=== PATIENT | female | born 1960 | race Caucasian/White ===

== ENCOUNTER 2022-04-26 12:43 | Observation (INO) | payer OTHER ==
[2022-04-26] MEDS ORDERED: ASPIRIN 81 MG PO STA (12:50)
[2022-04-26] MEDS ORDERED: NITROGLYCERIN SL TABS 0.4 MG TAB SUBLINGUAL STA (13:03)
[2022-04-26 13:19] LABS: Basophils % (A) 1 %; Eosinophils # (A) 0.2 k/uL (0-0.7); Eosinophils % (A) 3 %; HCT 35.7 % (34.0-46.0); HGB 12.3 gm/dL (11.4-16.0); Lymphocytes # (A) 2.4 k/uL (1.0-4.8); Lymphocytes % (A) 37 %; MCH 33.2 pg (25.0-35.0); MCHC 34.6 g/dL (31.0-37.0); MCV 95.9 fL (80.0-100.0); Mean Platelet Volume 7.2; Monocytes # (A) 0.4 k/uL (0-1.0); Monocytes % (A) 7 %; Neutrophils # (A) 3.1 k/uL (1.3-7.7); Neutrophils % (A) 50 %; Platelet Count 272 k/uL (150-450); RBC 3.72 m/uL (3.80-5.40); RDW 13.1 % (11.5-15.5); WBC 6.3 k/uL (3.8-10.6)
[2022-04-26 13:27] LABS: ALT 26 U/L (4-34); AST 30 U/L (14-36); African American GFR (CKD) >90 (>60 ml/min/1.73 sqM); Albumin 4.7 g/dL (3.5-5.0); Alkaline Phosphatase 88 U/L (38-126); Anion Gap 9 mmol/L; Blood Urea Nitrogen 7 mg/dL (7-17); Calcium 9.3 mg/dL (8.4-10.2); Carbon Dioxide 23 mmol/L (22-30); Chloride 101 mmol/L (98-107); Glucose 88 mg/dL (74-99); Magnesium 1.7 mg/dL (1.6-2.3); Non-African American GFR(CKD) >90 (>60 ml/min/1.73 sqM); Potassium 4.1 mmol/L (3.5-5.1); Sodium 133 mmol/L (137-145); Total Bilirubin 0.3 mg/dL (0.2-1.3); Total Protein 7.1 g/dL (6.3-8.2)
[2022-04-26] MEDS ORDERED: SODIUM CHLORIDE 0.9% 500 ML 500 ML IV STA (13:28)
[2022-04-26] MEDS ORDERED: ACETAMINOPHEN TAB 325 MG TAB PO STA (13:28)
--- NOTE | 2022-04-26 13:30 | ED ---
General Adult HPI - General Chief complaint: Chest Pain Stated complaint: Chest pain/High BP Time Seen by Provider: 04/26/22 12:50 Source: patient, RN notes reviewed, old records reviewed Mode of arrival: wheelchair Limitations: no limitations - History of Present Illness Initial comments: Patient is a 61-year-old female with past medical history remarkable for hypertension who presents emergency Department complaining of chest pain. Patient states at approximately 10:30 or 11 AM today, she began having chest pressure sensation that was approximately 7 out of 10 located over the left side of her chest. She was not doing any exertional activity at the time. Patient states the pain is currently 1 or 2 out of 10 at this time. Patient was hypert ensive when her chest pain was this elevated. She has been having multiple visits over the last 1 to months with similar complaints. She is been seen in multiple emergency departments with negative workups. She is due for a stress test tomorrow. She also increased her lisinopril recently to 20 mg from 10 mg. No other medications at this time. Family history of cardiac disease. Patient smokes tobacco as well. Presents for further evaluation this time. - Related Data Home Medications Medication Instructions Recorded Confirmed Aspirin DAILY 04/02/14 04/02/14 Levothyroxine Sodium [Synthroid] 137 mcg PO DAILY 04/02/14 04/02/14 Venlafaxine HCl [Effexor XR] 04/02/14 04/02/14 lamoTRIgine [LaMICtal] 04/02/14 04/02/14 Allergies Allergy/AdvReac Type Severity Reaction Status Date / Time No Known Allergies Allergy Verified 04/26/22 12:45 Review of Systems ROS Statement: Those systems with pertinent positive or pertinent negative responses have been documented in the HPI. Review of Systems: CONST: Denies fever EYES: Denies blurry vision ENT: Denies nasal congestion C/V: Endorses chest pressure. RESP: Denies shortness of breath GI: Denies abdominal pain : Denies dysuria SKIN: Denies rash. MSK: Denies joint pain. NEURO: Denies headache ROS Other: All systems not noted in ROS Statement are negative. Past Medical History Past Medical History: Hypertension History of Any Multi-Drug Resistant Organisms: None Reported Past Surgical History: Tonsillectomy Past Psychological History: Bipolar Smoking Status: Current some day smoker Past Alcohol Use History: Occasional Past Drug Use History: None Reported General Exam - General Exam Comments Initial Comments: General: Appears in no acute distress. HEAD: Normal with no signs of head trauma. EYES: PERRLA, EOMI, conjunctiva normal, no discharge. ENT: Hearing grossly intact, normal oropharynx. RESPIRATORY: Clear breath sounds bilaterally. No wheezes, rales, or rhonchi. C/V: Regular rate and rhythm. S1 and S2 auscultated, no edema, peripheral pulses 2+ and intact throughout ABD: Abd is soft, nontender, nondistended EXT: Normal range of motion, no obvious deformity SKIN: No rashes or lesions observed on exposed skin. NEURO: Alert and oriented 4. Limitations: no limitations Course Vital Signs 04/26/22 12:46 Temperature 98.4 F Pulse Rate 80 Respiratory 16 Rate Blood Pressure 165/102 O2 Sat by Pulse 98 Oximetry Medical Decision Making - Medical Decision Making Based on the patient's presentation and physical exam, there is concern for acute cardio pulmonary process for current symptoms. We will obtain cardiac labs as well as administer a single nitroglycerin tablet as well as aspirin. She was in agreement this plan. EKG showed no signs of acute ischemia. Chest x-ray shows no acute cardio pulmonary process. Laboratory studies are remarkable for an undetectable troponin. Remainder the labs are unremarkable. Patient states that her symptoms went from a 110 to possible 0 out of 10 after administration of nitroglycerin tablet. She is asymptomatic at this time. I discussed with the patient repeating a troponin here in the department versus admission. She states that typically when she goes home symptoms come back. She'll feel more comfortable staying. This is reasonable as the patient's heart score is moderate at 4. Patient will therefore be admitted. Troponins were trended. Echo will be ordered. Cardiology will be consulted. She was in agreement this plan.Patient remained asymptomatic and vital signs remained within normal limits throughout her stay. I spoke with Dr. Gonzalez who is covering for Dr. Honeycutt this weekend, who accepted the patient and patient was admitted to observation telemetry. - Lab Data Result diagrams: 04/26/22 12:55 04/26/22 12:55 Lab Results 04/26/22 04/26/22 04/26/22 Range/Units 12:55 12:55 12:55 WBC 6.3 (3.8-10.6) k/uL RBC 3.72 L (3.80-5.40) m/uL Hgb 12.3 (11.4-16.0) gm/dL Hct 35.7 (34.0-46.0) % MCV 95.9 (80.0-100.0) fL MCH 33.2 (25.0-35.0) pg MCHC 34.6 (31.0-37.0) g/dL RDW 13.1 (11.5-15.5) % Plt Count 272 (150-450) k/uL MPV 7.2 Neutrophils % 50 % Lymphocytes % 37 % Monocytes % 7 % Eosinophils % 3 % Basophils % 1 % Neutrophils # 3.1 (1.3-7.7) k/uL Lymphocytes # 2.4 (1.0-4.8) k/uL Monocytes # 0.4 (0-1.0) k/uL Eosinophils # 0.2 (0-0.7) k/uL Basophils # 0.0 (0-0.2) k/uL PT 10.3 (9.0-12.0) sec INR 0.9 (<1.2) APTT 26.1 (22.0-30.0) sec Sodium 133 L (137-145) mmol/L Potassium 4.1 (3.5-5.1) mmol/L Chloride 101 (98-107) mmol/L Carbon Dioxide 23 (22-30) mmol/L Anion Gap 9 mmol/L BUN 7 (7-17) mg/dL Creatinine 0.61 (0.52-1.04) mg/dL Est GFR (CKD-EPI)AfAm >90 (>60 ml/min/1.73 sqM) Est GFR (CKD-EPI)NonAf >90 (>60 ml/min/1.73 sqM) Glucose 88 (74-99) mg/dL Calcium 9.3 (8.4-10.2) mg/dL Magnesium 1.7 (1.6-2.3) mg/dL Total Bilirubin 0.3 (0.2-1.3) mg/dL AST 30 (14-36) U/L ALT 26 (4-34) U/L Alkaline Phosphatase 88 (38-126) U/L Troponin I (0.000-0.034) ng/mL Total Protein 7.1 (6.3-8.2) g/dL Albumin 4.7 (3.5-5.0) g/dL 04/26/22 Range/Units 12:55 WBC (3.8-10.6) k/uL RBC (3.80-5.40) m/uL Hgb (11.4-16.0) gm/dL Hct (34.0-46.0) % MCV (80.0-100.0) fL MCH (25.0-35.0) pg MCHC (31.0-37.0) g/dL RDW (11.5-15.5) % Plt Count (150-450) k/uL MPV Neutrophils % % Lymphocytes % % Monocytes % % Eosinophils % % Basophils % % Neutrophils # (1.3-7.7) k/uL Lymphocytes # (1.0-4.8) k/uL Monocytes # (0-1.0) k/uL Eosinophils # (0-0.7) k/uL Basophils # (0-0.2) k/uL PT (9.0-12.0) sec INR (<1.2) APTT (22.0-30.0) sec Sodium (137-145) mmol/L Potassium (3.5-5.1) mmol/L Chloride (98-107) mmol/L Carbon Dioxide (22-30) mmol/L Anion Gap mmol/L BUN (7-17) mg/dL Creatinine (0.52-1.04) mg/dL Est GFR (CKD-EPI)AfAm (>60 ml/min/1.73 sqM) Est GFR (CKD-EPI)NonAf (>60 ml/min/1.73 sqM) Glucose (74-99) mg/dL Calcium (8.4-10.2) mg/dL Magnesium (1.6-2.3) mg/dL Total Bilirubin (0.2-1.3) mg/dL AST (14-36) U/L ALT (4-34) U/L Alkaline Phosphatase (38-126) U/L Troponin I <0.012 (0.000-0.034) ng/mL Total Protein (6.3-8.2) g/dL Albumin (3.5-5.0) g/dL - EKG Data -: EKG Interpreted by Or EKG Comments: 12-lead Electrocardiogram Interpretation Note EKG was reviewed and interpreted by myself. 12-lead ECG performed at 1253 is interpreted by me as revealing normal sinus rhythm at a rate of 72 beats per minute. Mcintyre is normal. NE interval is 196 seconds, QRS duration is 91 ms, QTc is 391 ms.. There were no ST or T wave abnormalities to suggest myocardial ischemia or injury. R wave progression across the precordium was satisfactory. By my interpretation this EKG is non-diagnostic for acute ischemia. Disposition Clinical Impression: Chest pain Disposition: ADMITTED IP TO THIS HOSP Condition: Stable Referrals: Adan Honeycutt MD [Primary Care Provider] - 1-2 days Time of Disposition: 14:00
--- NOTE | 2022-04-26 13:30 | XR ---
EXAMINATION TYPE: XR chest 2V DATE OF EXAM: 04/26/2022 COMPARISON: NONE HISTORY: Chest pain TECHNIQUE: Frontal and lateral views of the chest are obtained. FINDINGS: There is no focal air space opacity, pleural effusion, or pneumothorax seen. The cardiac silhouette size is within normal limits. The osseous structures are intact. IMPRESSION: No acute cardiopulmonary process.
[2022-04-26 13:37] LABS: INR 0.9 (<1.2); Partial Thromboplastin Time 26.1 sec (22.0-30.0); Prothrombin Time 10.3 sec (9.0-12.0)
[2022-04-26] MEDS ORDERED: NALOXONE 0.4 MG/ML 1 ML VIAL IV PRN (14:09)
[2022-04-26] MEDS: HEPARIN SODIUM,PORCINE/PF 5,000 UNIT/0.5 ML SYRINGE SQ SCH ×2 (16:09→21:06)
[2022-04-26] MEDS: NON FORMULARY DRUG (Cariprazine Hcl [Vraylar] 1.5 MG Capsule) PO SCH (16:18)
--- NOTE | 2022-04-26 20:22 | P.HPIM ---
History of Present Illness H&P Date: 04/26/22 Chief Complaint: Chest pain Patient is a 61-year-old female with a known history of hypertension, hyperlipidemia, hypothyroidism, bipolar disorder and currently everyday smoker cut down to 2 cigarettes /day presents to ER with complaints of chest pain. Patient states that around 7:30 AM today she woke up from sleep with chest pain. Mainly left upper chest and discomfort in the neck and left arm. Patient was also felt like heart beating fast. 7 out of 10 in severity. No headache or dizziness or lightheadedness. No leg swelling. No cough or sputum production. No shortness of breath. Denies any relieving factors. Patient was found to be hypotensive with systolic blood pressure in 170s when checked at home. Patient had 4 similar episodes during the last 3 weeks. Patient was scheduled for stress test sometime next week. Patient does have multiple visits over the last 1 month with similar complaints. Work-up has been negative. Denies any history of diabetes. Denied family history of coronary artery disease. Chest x-ray impression showed no acute cardiopulmonary process EKG showed sinus rhythm with heart rate 72 Lab data showed WBC 6.3 hemoglobin 12.3 and platelets 272 Sodium 133 potassium 4.1 chloride 101 bicarb is 23 BUN 7 creatinine 0.61 and m agnesium 1.7 and troponin x2 negative albumin 4.7 liver enzymes are not elevated Review of Systems Constitutional: Patient denies any fever or chills . Generalized weakness. Abdomen: Patient denied any nausea or vomiting or abd. pain Cardiovascular: Patient does complain of left upper chest pain. No associated shortness breath. No leg swelling. Palpitations.. Respiratory: patient denied any cough is from production. No shortness of breath Neurologic: Patient denied any numbness or tingling headache. Musculoskeletal: Patient denies any complaints of joint swelling or deformity. Skin: Negative Psychiatric: Negative Endocrine: No heat or cold intolerance. No recent weight gain. Genitourinary: No dysuria or hematuria. All other 14 point ROS negative except the above Past Medical History Past Medical History: Hyperlipidemia, Hypertension, Thyroid Disorder History of Any Multi-Drug Resistant Organisms: None Reported Past Surgical History: Tonsillectomy Past Psychological History: Bipolar Smoking Status: Current some day smoker Past Alcohol Use History: Occasional Past Drug Use History: None Reported Medications and Allergies Home Medications Medication Instructions Recorded Confirmed Type Levothyroxine Sodium [Synthroid] 100 mcg PO DAILY 04/02/14 04/26/22 History Venlafaxine HCl [Effexor XR] 150 mg PO DAILY 04/02/14 04/26/22 History lamoTRIgine [LaMICtal] 200 mg PO HS 04/02/14 04/26/22 History Cariprazine HCl [Vraylar] 1.5 mg PO DAILY 04/26/22 04/26/22 History Ergocalciferol [Vitamin D2 (1250 1,250 mcg PO WEEKLY 04/26/22 04/26/22 History Mcg = 15793 Iu)] Melatonin 3 mg PO HS 04/26/22 04/26/22 History QUEtiapine [SEROquel] 200 mg PO HS 04/26/22 04/26/22 History Simvastatin [Zocor] 20 mg PO HS 04/26/22 04/26/22 History lisinopriL [Zestril] 20 mg PO DAILY 04/26/22 04/26/22 History Allergies Allergy/AdvReac Type Severity Reaction Status Date / Time No Known Allergies Allergy Verified 04/26/22 12:45 Physical Exam Vitals: Vital Signs Temp Pulse Pulse Resp BP BP Pulse Ox 04/26/22 18:45 98.5 F 82 17 161/96 93 L 04/26/22 15:15 98.2 F 66 16 156/89 98 04/26/22 14:54 98.1 F 68 18 136/94 99 04/26/22 12:46 98.4 F 80 16 165/102 98 Intake and Output 04/26/22 04/26/22 04/26/22 06:59 14:59 22:59 Other: Weight 72.121 kg PHYSICAL EXAMINATION: Patient is lying in the bed comfortably, no acute distress, awake alert and oriented.. HEENT: Normocephalic. Neck is supple. Pupils reactive. Nostrils clear. Oral cavity is moist. Neck reveals no JVD, carotid bruits, or thyromegaly. CHEST EXAMINATION: Trachea is central. Symmetrical expansion. Lung morales clear to auscultation and percussion. CARDIAC: Normal S1, S2 with no gallops. No murmurs ABDOMEN: Soft. Bowel sounds present. Nontender. No organomegaly. No abdominal bruits. Extremities: reveal no edema. No clubbing or cyanosis Neurologically awake, alert, oriented x3 with well-coordinated movements. No focal deficits noted Skin: No rash or skin lesions. Psychiatric: Coperative. Nonsuicidal, anxious. Musculoskeletal: No joint swelling or deformity. Normal range of motion. Results CBC & Chem 7: 04/26/22 12:55 06 12:55 Labs: Abnormal Lab Results - Last 24 Hours (Table) 04/26/22 04/26/22 Range/Units 12:55 12:55 RBC 3.72 L (3.80-5.40) m/uL Sodium 133 L (137-145) mmol/L Thrombosis Risk Factor Assmnt - DVT/VTE Prophylaxis DVT/VTE Prophylaxis: Pharmacologic Prophylaxis ordered Assessment and Plan Assessment: Atypical chest pain. Rule out ACS and arrhythmia.. Uncontrolled hypertension Hypothyroidism Hypomagnesemia. Status post replacement. Anxiety/depression bipolar disorder DVT prophylaxis with heparin subcu Plan: Patient will be continued on telemetry monitoring. Serial EKG and troponin x3. 2D echocardiogram was ordered and cardiology was consulted. Follow-up TSH and D-dimer. Continue with home blood pressure medications including lisinopril and follow blood pressure closely. Cardiology was consulted for evaluation. Continued home medications. Time with Patient: Greater than 30
[2022-04-26] MEDS ORDERED: ATORVASTATIN 10 MG TAB PO SCH (21:00)
[2022-04-26] MEDS ORDERED: lamoTRIgine 100 MG TAB PO SCH (21:00)
[2022-04-26] MEDS ORDERED: QUEtiapine 200 MG TAB PO SCH (21:00)
[2022-04-26] MEDS ORDERED: MELATONIN 3 MG TABLET PO SCH (21:00)
[2022-04-26] MEDS: MAGNESIUM SULFATE-D5W PMX 1 GM in DEXTROSE/WATER 1 100ML.BAG IVPB SCH ×2 (21:05→22:25)
[2022-04-26] MEDS ORDERED: ACETAMINOPHEN TAB 325 MG TAB PO PRN (21:08)
[2022-04-27] MEDS ORDERED: LEVOTHYROXINE 100 MCG TAB PO SCH (06:30)
[2022-04-27 08:12] VITALS: BP 114/73; PULSE 73; RESP 12; TEMP 98.4
[2022-04-27 08:56] LABS: Basophils # (A) 0.05 X 10*3/uL (0.00-0.10); Basophils % (A) 0.9 %; Eosinophils # (A) 0.22 X 10*3/uL (0.04-0.35); Eosinophils % (A) 4.1 %; HCT 38.2 % (37.2-46.3); HGB 12.3 g/dL (12.0-15.0); Immature Grans, Automated 0.6 %; Lymphocytes # (A) 2.52 X 10*3/uL (0.90-5.00); Lymphocytes % (A) 46.7 %; MCH 30.8 pg (27.0-32.0); MCHC 32.2 g/dL (32.0-37.0); MCV 95.7 fL (80.0-97.0); Monocytes % (A) 9.3 %; NRBC Per 100 WBC 0 /100 WBCS (0.0-0.0); Neutrophils # (A) 2.08 X 10*3/uL (1.80-7.70); Neutrophils % (A) 38.4 %; Platelet Count 273 X 10*3/uL (140-440); RBC 3.99 X 10*6/uL (4.10-5.20); RDW 12.9 % (11.5-14.5)
[2022-04-27] MEDS ORDERED: lisinopriL 20 MG TAB PO SCH (09:00)
[2022-04-27] MEDS ORDERED: VENLAFAXINE HCL ER 150 MG CAP PO SCH (09:00)
[2022-04-27] MEDS ORDERED: METOPROLOL TARTRATE 12.5 MG TAB PO SCH (09:00)
[2022-04-27] MEDS ORDERED: ASPIRIN 81 MG PO SCH (09:00)
[2022-04-27] MEDS: NON FORMULARY DRUG (Cariprazine Hcl [Vraylar] 1.5 MG Capsule) PO SCH (09:07)
[2022-04-27 09:18] LABS: African American GFR (CKD) 107.6 (60.0-200.0); Anion Gap 7.7 mmol/L (10.00-18.00); BUN/Creat Ratio 10.86 Ratio (12.00-20.00); Blood Urea Nitrogen 7.6 mg/dL (9.0-27.0); Calcium 9.7 mg/dL (8.7-10.3); Carbon Dioxide 24.3 mmol/L (20.0-27.5); Non-African American GFR(CKD) 92.9 (60.0-200.0); Potassium 4.8 mmol/L (3.5-5.5)
--- NOTE | 2022-04-27 10:03 | CA ---
Transthoracic Echo Report Name: Inez Nova Age: 61 Gender: F : 1960 Exam Date: 04/27/2022 07:49 Exam Location: [facility] Ht (in): 65 Wt (lb): 159 Ordering Physician: David Turner MD Attending/Referring Phys: Hand Pleater Rekha Nielsen RDCS Procedure CPT: Indications: Chest Pain Cardiac Hx: Hyperlipidemia. Hypertension. smoker Technical Quality: Good Contrast 1: Total Dose (mL): Contrast 2: Total Dose (mL): MEASUREMENTS (Male / Female) Normal Values 2D ECHO LV Diastolic Diameter PLAX 3.6 cm 4.2 - 5.9 / 3.9 - 5.3 cm LV Systolic Diameter PLAX 2.4 cm IVS Diastolic Thickness 1.1 cm 0.6 - 1.0 / 0.6 - 0.9 cm LVPW Diastolic Thickness 0.9 cm 0.6 - 1.0 / 0.6 - 0.9 cm LV Relative Wall Thickness 0.6 RV Internal Dim ED PLAX 2.9 cm LA Systolic Diameter LX 3.1 cm 3.0 - 4.0 / 2.7 - 3.8 cm LA Volume 43.2 cm??? 18 - 58 / 22 - 52 cm??? M-MODE Aortic Root Diameter MM 3.3 cm MV E Point Septal Separation 0.3 cm AV Cusp Separation MM 2.2 cm DOPPLER AV Peak Velocity 130.3 cm/s AV Peak Gradient 6.8 mmHg MV Area PHT 2.2 cm??? Mitral E Point Velocity 73.4 cm/s Mitral A Point Velocity 82.6 cm/s Mitral E to A Ratio 0.9 MV Deceleration Time 344.0 ms MV E' Velocity 6.9 cm/s Mitral E to MV E' Ratio 10.6 TR Peak Velocity 232.4 cm/s TR Peak Gradient 21.6 mmHg Right Ventricular Systolic Press 26.6 mmHg FINDINGS Left Ventricle Left ventricular ejection fraction is estimated at 60-65 %. Left ventricular cavity size normal. Left ventricular wall thickness normal. Right Ventricle Normal right ventricular size and function. Right ventricular systolic pressure within normal limits. Right Atrium Normal right atrial size. Left Atrium Normal left atrial size. No evidence for an atrial septal defect. Mitral Valve Structurally normal mitral valve. No mitral stenosis, regurgitation or prolapse. Aortic Valve Trileaflet aortic valve. Trace to mild aortic regurgitation. Tricuspid Valve Mild tricuspid regurgitation. Pulmonic Valve Trace pulmonic regurgitation. Pericardium Normal pericardium. No pericardial effusion. Aorta Normal size aortic root and proximal ascending aorta. Ascending AO dilated 39 mm CONCLUSIONS Normal LV size and systolic function. No significant abnormality on the Doppler exam. Prominent ascending aorta Previewed by: Dr. Kirt Alcantar MD (Electronically Signed) Final Date: 27 April 2022 10:02
--- NOTE | 2022-04-27 10:21 | P.CRDCN ---
History of Present Illness History of present illness: HISTORY OF PRESENTING ILLNESS This is a pleasant 61-year-old female past medical history significant for hypertension, dyslipidemia, hypothyroidism, anxiety, depression. She does not follow with a defense analyst, she states did see Dr. Alcantar in 2015. We have been asked to see in consultation for chest pain. Patient is seen and examined at bedside, patient presents to the emergency department with complaints of uncontrolled blood pressure at home and chest pressure. She states for the past week she's noticed her blood pressure to be elevated. She states that she did present to the emergency department and wanted [place] for her elevated blood pressure. Most recently her lisinopril was increased to 20 mg a day. She states for the past 23 days she's noticed her blood pressure to be SBP 170s, with no improvement. She endorses compliance with her medication. She states she also notices a high blood pressure he had left-sided chest pain. Describes as a pressure. It is nonradiating, nonexertional denies any associated palpitations, shortness of breath, lightheadedness, syncope or diaphoresis. Her chest discomfort has resolved. No specific alleviating or aggravating factors. She states that Dr. Honeycutt recently ordered an outpatient stress test that was scheduled today at 845am. She currently smokes 2 cigarettes per day. She denies any history of CAD, [place], diabetes, stroke. On admission patient's blood pressure was 160s/100s DIAGNOSTICS EKG reveals sinus rhythm, heart rate 72, nonspecific ST-T wave abnormalities noted. Echocardiogram revealed EF of 6065 percent, no significant wall motion abnormalities or valvular abnormalities Telemetry tracings indicate sinus mechanism Chest xray no acute cardio pulmonary process Laboratory reviewed, troponin negative 3, d-dimer negative, cbc unremarkable,sodium 141, potassium 4.8, BUN 7.6, serum creatinine 0.7 Current home medications include lisinopril 20 mg daily, simvastatin 20 mg daily REVIEW OF SYSTEMS At the time of my exam: CONSTITUTIONAL: Denies fever or chills. CARDIOVASCULAR: Denies chest pain, shortness of breath, orthopnea, PND or palpitations. RESPIRATORY: Denies cough. GASTROINTESTINAL: Denies abdominal pain, diarrhea, constipation, nausea or vomiting. MUSCULOSKELETAL: Denies myalgias. NEUROLOGIC: Denies numbness, tingling, headache or weakness. ENDOCRINE: Denies fatigue, weight change, polydipsia or polyurina. GENITOURINARY: Denies burning, hematuria or urgency with micturation. HEMATOLOGIC: Denies history of anemia or bleeding. PHYSICAL EXAMINATION Blood pressure 114/73, heart rate 73, afebrile, saturation 95% room air CONSTITUTIONAL: No apparent distress. HEENT: Head is normocephalic. Pupils are equal, round. Sclerae anicteric. Mucous membranes of the mouth are moist. No JVD. No carotid bruit. CHEST EXAMINATION: Lungs are clear to auscultation. No chest wall tenderness is noted on palpation or with deep breathing. HEART EXAMINATION: Regular rate and rhythm. S1, S2 heard. No murmurs, gallops or rub. ABDOMEN: Soft, nontender. Positive bowel sounds. EXTREMITIES: 2+ peripheral pulses, no lower extremity edema and no calf tenderness. SKIN: warm dry. NEUROLOGIC EXAMINATION: Patient is awake, alert and oriented x3. ASSESSMENT Chest pain, atypical, acute coronary syndrome has ruled out, possibly related to the hypertension Hypertension Dyslipidemia Hypothyroidism History of anxiety/depression PLAN Start metoprolol tartrate 12.5mg BID An acute coronary event has been ruled out with no EKG evidence of ischemia and negative cardiac enzymes. Obtain 2D echocardiogram and doppler study to assess cardiac structure and function. We will complete patient's stress test as scheduled today to assess for stress induced cardiac ischemia. If stress test is negative ok to discharge from cardiology perspective. Patient may follow up outpatient with Dr. Alcantar Thank you kindly for this consultation. Nurse practitioner note has been reviewed by physician. Signing provider agrees with the documented findings, assessment, and plan of care. Past Medical History Past Medical History: Hyperlipidemia, Hypertension, Thyroid Disorder History of Any Multi-Drug Resistant Organisms: None Reported Past Surgical History: Tonsillectomy Past Psychological History: Bipolar Smoking Status: Current some day smoker Past Alcohol Use History: Occasional Past Drug Use History: None Reported Medications and Allergies Home Medications Medication Instructions Recorded Confirmed Type Venlafaxine HCl [Effexor XR] 150 mg PO DAILY 04/02/14 04/27/22 History Cariprazine HCl [Vraylar] 1.5 mg PO DAILY 04/26/22 04/27/22 History Ergocalciferol [Vitamin D2 (1250 1,250 mcg PO MO 04/26/22 04/27/22 History Mcg = [id number] Iu)] Melatonin 3 mg PO HS 04/26/22 04/27/22 History QUEtiapine [SEROquel] 200 mg PO HS 04/26/22 04/27/22 History Simvastatin [Zocor] 20 mg PO HS 04/26/22 04/27/22 History Levothyroxine Sodium [Synthroid] 100 mcg PO DAILY 04/27/22 04/27/22 History lamoTRIgine [LaMICtal] 200 mg PO HS 04/27/22 04/27/22 History lisinopriL [Zestril] 20 mg PO DAILY 04/27/22 04/27/22 History Allergies Allergy/AdvReac Type Severity Reaction Status Date / Time lithium AdvReac Nausea Verified 04/27/22 07:52 Physical Exam Vitals: Vital Signs Temp Pulse Pulse Resp BP BP Pulse Ox 04/27/22 02:20 97.8 F 76 17 144/72 95 04/27/22 01:55 82 17 04/26/22 21:06 82 17 04/26/22 18:45 98.5 F 82 17 161/96 93 L 04/26/22 15:15 98.2 F 66 16 156/89 98 04/26/22 14:54 98.1 F 68 18 136/94 99 04/26/22 12:46 98.4 F 80 16 165/102 98 Intake and Output 04/26/22 04/27/22 04/27/22 22:59 06:59 14:59 Other: Voiding Method Toilet Toilet # Voids 1 2 Results 04/27/22 06:06 04/27/22 06:06 Cardiac Enzymes 04/26/22 04/26/22 04/26/22 Range/Units 12:55 12:55 15:55 AST 30 (14-36) U/L Troponin I <0.012 <0.012 (0.000-0.034) ng/mL 04/26/22 Range/Units 19:45 AST (14-36) U/L Troponin I <0.012 (0.000-0.034) ng/mL Coagulation 04/26/22 Range/Units 12:55 PT 10.3 (9.0-12.0) sec APTT 26.1 (22.0-30.0) sec CBC 04/26/22 Range/Units 12:55 WBC 6.3 (3.8-10.6) k/uL RBC 3.72 L (3.80-5.40) m/uL Hgb 12.3 (11.4-16.0) gm/dL Hct 35.7 (34.0-46.0) % Plt Count 272 (150-450) k/uL Comprehensive Metabolic Panel 04/26/22 Range/Units 12:55 Sodium 133 L (137-145) mmol/L Potassium 4.1 (3.5-5.1) mmol/L Chloride 101 (98-107) mmol/L Carbon Dioxide 23 (22-30) mmol/L BUN 7 (7-17) mg/dL Creatinine 0.61 (0.52-1.04) mg/dL Glucose 88 (74-99) mg/dL Calcium 9.3 (8.4-10.2) mg/dL AST 30 (14-36) U/L ALT 26 (4-34) U/L Alkaline Phosphatase 88 (38-126) U/L Total Protein 7.1 (6.3-8.2) g/dL Albumin 4.7 (3.5-5.0) g/dL Current Medications Generic Name Dose Route Start Last Admin Trade Name Freq PRN Reason Stop Dose Admin Acetaminophen 650 mg 04/26/22 21:08 04/26/22 21:20 Acetaminophen Tab 325 Mg Tab PO 650 mg Q6HR PRN Administration Fever and/ or Pain Atorvastatin Calcium 10 mg 04/26/22 21:00 04/26/22 21:05 Atorvastatin 10 Mg Tab PO 10 mg HS CURT Administration Ergocalciferol 1,250 mcg 05/03/22 09:00 Ergocalciferol 1,250 Mcg (50,000 Iu) Capsule PO WEEKLY CURT Heparin Sodium (Porcine) 5,000 unit 04/26/22 16:00 04/26/22 21:06 Heparin Sodium,Porcine/Pf 5,000 Unit/0.5 Ml Syringe SQ 5,000 unit Q8HR CURT Administration Lamotrigine 200 mg 04/26/22 21:00 04/26/22 21:05 Lamotrigine 100 Mg Tab PO 200 mg HS CURT Administration Levothyroxine Sodium 100 mcg 04/27/22 06:30 04/27/22 05:11 Levothyroxine 100 Mcg Tab PO 100 mcg DAILY@0630 CURT Administration Lisinopril 20 mg 04/27/22 09:00 Lisinopril 20 Mg Tab PO DAILY CURT Melatonin 3 mg 04/26/22 21:00 04/26/22 21:06 Melatonin 3 Mg Tablet PO 3 mg HS CURT Administration Naloxone HCl 0.2 mg 04/26/22 14:09 Naloxone 0.4 Mg/Ml 1 Ml Vial IV Q2M PRN Opioid Reversal Non-Formulary Medication 1.5 mg 04/26/22 16:00 04/26/22 16:18 Cariprazine Hcl [Vraylar] PO Not Given DAILY CURT Quetiapine Fumarate 200 mg 04/26/22 21:00 04/26/22 21:06 Quetiapine 200 Mg Tab PO 200 mg HS CURT Administration Venlafaxine HCl 150 mg 04/27/22 09:00 Venlafaxine Hcl Er 150 Mg Cap PO DAILY CURT Intake and Output 04/26/22 04/27/22 04/27/22 22:59 06:59 14:59 Other: Voiding Method Toilet Toilet # Voids 1 2 04/26/22 12:55 04/26/22 12:55
[2022-04-27] MEDS: HEPARIN SODIUM,PORCINE/PF 5,000 UNIT/0.5 ML SYRINGE SQ SCH (10:37)
--- NOTE | 2022-04-27 10:40 | CA ---
Exercise Stress Test Report Name: Inez Nova Exam Date: 04/27/2022 09:24 Exam Location: [facility] Stress Ht (in): 65 Wt (lb): 159 BSA: 1.79 Ordering Phys: Nicki Perry Referring Phys: SELENE,, Technologist: EFE,, Age: 61 Gender: F : 1960 Procedure CPT: Indications: Chest Pain ICD-10 Codes: Patient History: CHEST PAIN , NAHID, PALPPITATIONS, NUMBNESS FACE/NECK, HIGH BP, HIGH CHOLESTEROL, FAMILY HISTORY, SMOKER Medications: Meds past 24 hrs: Pretest Chest Pain: STRESS TEST Garett Protocol Exercise Duration (min:sec): 06:[address] Depressions (mm): Angina Score: Florence Score: Resting HR (bpm): 92 Peak HR (bpm): 143 Resting BP (mmHg): / Peak BP (mmHg): 180 / 91 MPHR: 158 Target HR: 134 % MPHR: 91 METS: 7.1 Total Dose: Peak Dose: Atropine: Double Product: 70912 BP Response: Stress Termination: TARGET HR REACHED/MAX EXERTION Stress Symptoms: NO SYMPTOMS Stress Summary: Patient walked on standard Garett protocol for 6 minutes and achieved a maximal heart rate of 143 bpm which is available 85% of predicted maximal. She did not have any angina. There was no significant arrhythmia. There were no ST segment changes to indicate ischemia. This is a negative stress test with fair exercise capacity ECG ANALYSIS Resting ECG: Stress ECG: CONCLUSIONS Patient walked on standard Garett protocol for 6 minutes and achieved a maximal heart rate of 143 bpm which is available 85% of predicted maximal. She did not have any angina. There was no significant arrhythmia. There were no ST segment changes to indicate ischemia. This is a negative stress test with fair exercise capacity Dr. Kirt Alcantar MD (Electronically Signed) Final Date: 27 April 2022 10:39
--- NOTE | 2022-04-29 10:51 | P.DS ---
Providers Date of admission: 04/26/22 14:09 Expected date of discharge: 04/27/22 Attending physician: Melody Gonzalez Consults: 04/26/22 14:09 Consult Physician Routine Consulting Provider: [facility] Consult Reason/Comments: chest pain Do you want consulting provider notified?: Yes, Notify in am Primary care physician: Adan Honeycutt MD Hospital Course: Final Diagnoses: Atypical chest pain. Evaluated by cardiology,ACS ruled out., possibly r/t HTN Uncontrolled hypertension, controlled Hypothyroidism, TSH 0.106, free T4 1.340, dose decreased, recheck level in 2-3 weeks Hypomagnesemia Anxiety/depression bipolar disorder Hospital course: This a 61-year-old female admitted with uncontrolled blood pressure, chest pain 1 week, ongoing nicotine dependence and multiple other medical issues. Troponins negative. Evaluated by cardiology, echo reported normal LV function, EF 60-65% With no significant valvular abnormality, prominent ascending aorta. Antihypertensives adjusted, beta laurie added to med regimen. Significant clinical improvement. Blood pressure controlled. Denies chest pain, palpitations or shortness of breath. Patient will be discha rged home pending stress test, DC recommendations and clearance per cardiology. Smoking cessation reinforced. The impression and plan of care has been dictated as directed. : I performed a history and examination of this patient, discussed the same with the dictator. I agree with the dictator's note ,documented as a scribe. Any additional findings or plans will be noted. Patient Condition at Discharge: Stable Plan - Discharge Summary New Discharge Prescriptions: New lisinopriL [Zestril] 20 mg PO DAILY #30 tab Metoprolol Tartrate [Lopressor] 12.5 mg PO BID 30 Days #60 tab Continue Venlafaxine HCl [Effexor XR] 150 mg PO DAILY lamoTRIgine [LaMICtal] 200 mg PO HS Ergocalciferol [Vitamin D2 (1250 Mcg = 32337 Iu)] 1,250 mcg PO MO Simvastatin [Zocor] 20 mg PO HS QUEtiapine [SEROquel] 200 mg PO HS Cariprazine HCl [Vraylar] 1.5 mg PO DAILY Melatonin 3 mg PO HS Levothyroxine Sodium [Synthroid] 100 mcg PO DAILY Discontinued lisinopriL [Zestril] 20 mg PO DAILY Discharge Medication List Venlafaxine HCl [Effexor XR] 150 mg PO DAILY 04/02/14 [History] Cariprazine HCl [Vraylar] 1.5 mg PO DAILY 04/26/22 [History] Ergocalciferol [Vitamin D2 (1250 Mcg = 59890 Iu)] 1,250 mcg PO MO 04/26/22 [History] Melatonin 3 mg PO HS 04/26/22 [History] QUEtiapine [SEROquel] 200 mg PO HS 04/26/22 [History] Simvastatin [Zocor] 20 mg PO HS 04/26/22 [History] Levothyroxine Sodium [Synthroid] 100 mcg PO DAILY 04/27/22 [History] Metoprolol Tartrate [Lopressor] 12.5 mg PO BID 30 Days #60 tab 04/27/22 [Rx] lamoTRIgine [LaMICtal] 200 mg PO HS 04/27/22 [History] lisinopriL [Zestril] 20 mg PO DAILY #30 tab 04/27/22 [Rx] Follow up Appointment(s)/Referral(s): Kirt Alcantar MD [STAFF PHYSICIAN] - 05/04/22 2:30 pm Adan Honeycutt MD [Primary Care Provider] - 1-2 days Patient Instructions/Handouts: How to Stop Smoking (DC) Activity/Diet/Wound Care/Special Instructions: No smoking
[2022-05-03] MEDS ORDERED: ERGOCALCIFEROL 1,250 MCG (50,000 IU) CAPSULE PO SCH (09:00)
== END 2022-04-27 12:48 ==
LOC: EC 12:43 → 6NMEDSUR 14:09
PROVIDERS: ADMIT Internal Medicine; ATTEND Internal Medicine
DX: R07.89 Other chest pain (principal); I10 Essential (primary) hypertension; E83.42 Hypomagnesemia; F31.9 Bipolar disorder, unspecified; E03.9 Hypothyroidism, unspecified; E78.5 Hyperlipidemia, unspecified; F41.9 Anxiety disorder, unspecified; F17.210 Nicotine dependence, cigarettes, uncomplicated; Z79.82 Long term (current) use of aspirin; Z79.890 Hormone replacement therapy; Z79.899 Other long term (current) drug therapy; Z88.8 Allergy status to other drugs, medicaments and biological substances; Z98.890 Other specified postprocedural states; Z82.49 Family history of ischemic heart disease and other diseases of the circulatory system
CPT/HCPCS: 96365; 96366; 96372; 96361; 99285; 36415; 93005; 93017; 93306; 85379; 84439; 80053; 80048; 84443; 83735; 84484; 85025 ×2; 85610; 85730; 71046; G0378 ×2; J3475; J1644

== ENCOUNTER → 2022-04-28 | Outpatient (CLI) | payer OTHER ==
--- NOTE | 2022-04-30 18:30 | MM ---
Reason for Exam: Screening (asymptomatic). Last mammogram was performed 1 year(s) and 2 month(s) ago. Patient History: Menarche at age 11. First Full-Term at age 23. Postmenopausal. Cyst Aspiration on the Right side. Excisional Biopsy on the Right side. Last menstrual period: 11/15/2008 Risk Values: [place] 5 year model risk: 1.6%. NCI Lifetime model risk: 7.3%. Prior Study Comparison: 11/17/2001 Bilateral Diagnostic Mammogram, [facility]. 09/21/2019 Bilateral MG screening mammo w CAD - 2, [place]. 02/26/2021 Bilateral MG screening mammo w [facility] - 2, [place]. Tissue Density: The breast tissue is heterogeneously dense. This may lower the sensitivity of mammography. Findings: Analyzed By CAD. Asymmetric density medial right CC view at middle depth appears more defined. Asymmetric density superior right MLO view middle depth appears more defined. Further evaluation recommended for both of these findings. A few scattered benign oil cyst calcifications are redemonstrated. Chronic nodularity lateral bilateral breasts. Overall Assessment: Incomplete: need additional imaging evaluation, BI-RAD 0 Management: Special View Mammogram of the right breast. 1. Additional views right breast to include spot 3-D CC and 3-D CC rolled lateral views for the medial density. 2. Additional views right breast to include spot 3-D MLO and 3-D ML views for the superior density. 3. Targeted right breast ultrasound if any persisting abnormality. Electronically signed and approved by: Chiara Gibson M.D. Radiologist
== END | disposition home or self-care (01) ==
LOC: RADMAMWWP 15:21
PROVIDERS: ATTEND Family Medicine
DX: Z12.31 Encounter for screening mammogram for malignant neoplasm of breast (principal); Z78.0 Asymptomatic menopausal state
CPT/HCPCS: 77067

== ENCOUNTER → 2022-05-07 | Outpatient (CLI) | payer OTHER ==
--- NOTE | 2022-05-07 08:01 | MM ---
Reason for Exam: Additional evaluation requested from abnormal screening. Last screening mammogram was performed less than 1 month ago. Patient History: Menarche at age 11. First Full-Term at age 23. Postmenopausal. Cyst Aspiration on the Right side. Excisional Biopsy on the Right side. Risk Values: [place] 5 year model risk: 1.6%. NCI Lifetime model risk: 7.3%. Prior Study Comparison: 11/17/2001 Bilateral Diagnostic Mammogram, [facility]. 09/21/2019 Bilateral MG screening mammo w CAD - 2, [place]. 02/26/2021 Bilateral MG screening mammo w CAD - 2, [place]. 04/28/2022 Bilateral MG screening mammo w CAD, [facility]. Tissue Density: Right: The breast tissue is heterogeneously dense. This may lower the sensitivity of mammography. Findings: Analyzed By CAD. No persistent spiculated or lobular masses evident. Area upper inner right breast disperses on compression. Findings are likely related to summation density. Overall Assessment: Benign, BI-RAD 2 Management: Screening Mammogram of both breasts in 1 year. A clinical breast exam by your physician is recommended on an annual basis and results should be correlated with mammographic findings. This exam should not preclude additional follow-up of suspicious palpable abnormalities. Results were given to the patient verbally at the time of exam. Electronically signed and approved by: Raleigh Alonso D.O. Radiologis
== END | disposition home or self-care (01) ==
LOC: RADMAMWWP 06:59
PROVIDERS: ATTEND Family Medicine
DX: R92.8 Other abnormal and inconclusive findings on diagnostic imaging of breast (principal); Z78.0 Asymptomatic menopausal state
CPT/HCPCS: 77065; G0279; 77061

== ENCOUNTER 2022-08-22 09:06 | Inpatient (IN) | payer OTHER ==
--- NOTE | 2022-08-22 09:41 | ED ---
General Adult HPI - General Chief complaint: Weakness Stated complaint: dizziness, falls, rt ankle injury Time Seen by Provider: 08/22/22 09:10 Source: patient, family, RN notes reviewed, old records reviewed Mode of arrival: wheelchair Limitations: no limitations - History of Present Illness Initial comments: This a 62-year-old female presents emergency department stating that over the last 2 weeks she's been falling quite a bit more. Today she fell and hurt her right ankle. Patient states she gets lightheaded patient can a passout and then falls. Patient states she's never actually passed out. Patient denies any chest pain difficulty breathing shortness of breath. Patient has any fever or chills. Patient denies any abdominal pain patient denies nausea vomiting diarrhea. Patient denies any headache patient denies numbness weakness - Related Data Home Medications Medication Instructions Recorded Confirmed Venlafaxine HCl [Effexor XR] 150 mg PO DAILY 04/02/14 04/27/22 Cariprazine HCl [Vraylar] 1.5 mg PO DAILY 04/26/22 04/27/22 Ergocalciferol [Vitamin D2 (1250 1,250 mcg PO MO 04/26/22 04/27/22 Mcg = 35117 Iu)] Melatonin 3 mg PO HS 04/26/22 04/27/22 QUEtiapine [SEROquel] 200 mg PO HS 04/26/22 04/27/22 Simvastatin [Zocor] 20 mg PO HS 04/26/22 04/27/22 Levothyroxine Sodium [Synthroid] 100 mcg PO DAILY 04/27/22 04/27/22 lamoTRIgine [LaMICtal] 200 mg PO HS 04/27/22 04/27/22 Previous Rx's Medication Instructions Recorded Metoprolol Tartrate [Lopressor] 12.5 mg PO BID 30 Days #60 tab 04/27/22 lisinopriL [Zestril] 20 mg PO DAILY #30 tab 04/27/22 Allergies Allergy/AdvReac Type Severity Reaction Status Date / Time lithium AdvReac Nausea Verified 08/22/22 09:08 Review of Systems ROS Statement: Those systems with pertinent positive or pertinent negative responses have been documented in the HPI. ROS Other: All systems not noted in ROS Statement are negative. Past Medical History Past Medical History: Hyperlipidemia, Hypertension, Thyroid Disorder History of Any Multi-Drug Resistant Organisms: None Reported Past Surgical History: Tonsillectomy Past Psychological History: Bipolar Smoking Status: Former smoker Past Alcohol Use History: Occasional Past Drug Use History: None Reported General Exam - General Exam Comments Initial Comments: GENERAL: Patient is well-developed and well-nourished. Patient is nontoxic and well- hydrated and is in mild distress. ENT: Neck is soft and supple. No significant lymphadenopathy is noted. Oropharynx is clear. Moist mucous membranes. Neck has full range of motion without eliciting any pain. EYES: The sclera were anicteric and conjunctiva were pink and moist. Extraocular movements were intact and pupils were equal round and reactive to light. Eyelids were unremarkable. PULMONARY: Unlabored respirations. Good breath sounds bilaterally. No audible rales rhonchi or wheezing was noted. CARDIOVASCULAR: There is a regular rate and rhythm without any murmurs gallops or rubs. ABDOMEN: Soft and nontender with normal bowel sounds. SKIN: Skin is clear with no lesions or rashes and otherwise unremarkable. NEUROLOGIC: Patient is alert and oriented x3. Cranial nerves II through XII are grossly intact. Motor and sensory are also intact. Normal speech, volume and content. Symmetrical smile. MUSCULOSKELETAL: Patient's right ankle is swollen laterally and tender laterally. Patient also has some fifth metatarsal fracture LYMPHATICS: No significant lymphadenopathy is noted PSYCHIATRIC: Normal psychiatric evaluation. Limitations: no limitations Course Vital Signs 08/22/22 08/22/22 08/22/22 09:08 09:57 10:38 Temperature 97.7 F Pulse Rate 72 66 75 Respiratory 18 16 16 Rate Blood Pressure 95/66 84/64 99/73 O2 Sat by Pulse 92 L 96 100 Oximetry Procedures - Orthopedic Splinting/Casting Injury #1 Side: right Lower Extremity Injury Location: short leg Lower Extremity Immobilizer: posterior splint Medical Decision Making - Medical Decision Making EKG shows sinus rhythm at 63 bpm W[place] interval is 203 QRSs 1:15 QT interval 41 QTC is 408. Patient's EKG shows no ST segment elevation or depression. X-ray of the ankle shows a distal fibula fracture. X-ray of the foot shows a fracture of the right proximal phalanx of the fifth toe. I placed a splint on the patient [facility] patient minute the patient wrote admitting orders I consult to nephrology for the acute renal fa ilure and a consult sore throat for the fractures. - Lab Data Result diagrams: 08/22/22 09:53 08/22/22 09:53 Lab Results 08/22/22 08/22/22 08/22/22 Range/Units 09:53 09:53 09:53 WBC 8.0 (3.8-10.6) k/uL RBC 3.80 (3.80-5.40) m/uL Hgb 11.8 (11.4-16.0) gm/dL Hct 37.3 (34.0-46.0) % MCV 98.3 (80.0-100.0) fL MCH 31.2 (25.0-35.0) pg MCHC 31.7 (31.0-37.0) g/dL RDW 12.9 (11.5-15.5) % Plt Count 255 (150-450) k/uL MPV 9.2 Neutrophils % 76 % Lymphocytes % 15 % Monocytes % 6 % Eosinophils % 2 % Basophils % 1 % Neutrophils # 6.0 (1.3-7.7) k/uL Lymphocytes # 1.2 (1.0-4.8) k/uL Monocytes # 0.4 (0-1.0) k/uL Eosinophils # 0.1 (0-0.7) k/uL Basophils # 0.1 (0-0.2) k/uL Hypochromasia Slight Sodium 139 (137-145) mmol/L Potassium 4.7 (3.5-5.1) mmol/L Chloride 113 H (98-107) mmol/L Carbon Dioxide 10 L (22-30) mmol/L Anion Gap 16 mmol/L BUN 65 H (7-17) mg/dL Creatinine 6.40 H (0.52-1.04) mg/dL Est GFR (CKD-EPI)AfAm 7 (>60 ml/min/1.73 sqM) Est GFR (CKD-EPI)NonAf 6 (>60 ml/min/1.73 sqM) Glucose 122 H (74-99) mg/dL Calcium 9.8 (8.4-10.2) mg/dL Magnesium 3.0 H (1.6-2.3) mg/dL Total Bilirubin 0.5 (0.2-1.3) mg/dL AST 21 (14-36) U/L ALT 17 (4-34) U/L Alkaline Phosphatase 139 H (38-126) U/L Troponin I 0.029 (0.000-0.034) ng/mL Total Protein 7.8 (6.3-8.2) g/dL Albumin 4.8 (3.5-5.0) g/dL Urine Color Urine Appearance (Clear) Urine pH (5.0-8.0) Ur Specific [place] (1.001-1.035) Urine Protein (Negative) Urine Glucose (UA) (Negative) Urine Ketones (Negative) Urine Blood (Negative) Urine Nitrite (Negative) Urine Bilirubin (Negative) Urine Urobilinogen (<2.0) mg/dL Ur Leukocyte Esterase (Negative) Urine RBC (0-5) /hpf Urine WBC (0-5) /hpf Urine Mucus (None) /hpf 08/22/22 Range/Units 10:52 WBC (3.8-10.6) k/uL RBC (3.80-5.40) m/uL Hgb (11.4-16.0) gm/dL Hct (34.0-46.0) % MCV (80.0-100.0) fL MCH (25.0-35.0) pg MCHC (31.0-37.0) g/dL RDW (11.5-15.5) % Plt Count (150-450) k/uL MPV Neutrophils % % Lymphocytes % % Monocytes % % Eosinophils % % Basophils % % Neutrophils # (1.3-7.7) k/uL Lymphocytes # (1.0-4.8) k/uL Monocytes # (0-1.0) k/uL Eosinophils # (0-0.7) k/uL Basophils # (0-0.2) k/uL Hypochromasia Sodium (137-145) mmol/L Potassium (3.5-5.1) mmol/L Chloride (98-107) mmol/L Carbon Dioxide (22-30) mmol/L Anion Gap mmol/L BUN (7-17) mg/dL Creatinine (0.52-1.04) mg/dL Est GFR (CKD-EPI)AfAm (>60 ml/min/1.73 sqM) Est GFR (CKD-EPI)NonAf (>60 ml/min/1.73 sqM) Glucose (74-99) mg/dL Calcium (8.4-10.2) mg/dL Magnesium (1.6-2.3) mg/dL Total Bilirubin (0.2-1.3) mg/dL AST (14-36) U/L ALT (4-34) U/L Alkaline Phosphatase (38-126) U/L Troponin I (0.000-0.034) ng/mL Total Protein (6.3-8.2) g/dL Albumin (3.5-5.0) g/dL Urine Color Light Yellow Urine Appearance Clear (Clear) Urine pH 6.0 (5.0-8.0) Ur Specific [place] 1.009 (1.001-1.035) Urine Protein 1+ H (Negative) Urine Glucose (UA) Negative (Negative) Urine Ketones Negative (Negative) Urine Blood Trace H (Negative) Urine Nitrite Negative (Negative) Urine Bilirubin Negative (Negative) Urine Urobilinogen <2.0 (<2.0) mg/dL Ur Leukocyte Esterase Negative (Negative) Urine RBC 1 (0-5) /hpf Urine WBC 1 (0-5) /hpf Urine Mucus Rare H (None) /hpf Disposition Clinical Impression: Fractured fibula, Fractured toe, Acute renal failure, Multiple falls Disposition: ADMITTED IP TO THIS [facility] Referrals: Adan Honeycutt MD [Primary Care Provider] - 1-2 days Time of Disposition: 11:57
[2022-08-22 10:13] LABS: Basophils # (A) 0.1 k/uL (0-0.2); Basophils % (A) 1 %; Eosinophils # (A) 0.1 k/uL (0-0.7); Eosinophils % (A) 2 %; HCT 37.3 % (34.0-46.0); HGB 11.8 gm/dL (11.4-16.0); Hypochromasia Slight; Lymphocytes # (A) 1.2 k/uL (1.0-4.8); Lymphocytes % (A) 15 %; MCH 31.2 pg (25.0-35.0); MCHC 31.7 g/dL (31.0-37.0); MCV 98.3 fL (80.0-100.0); Mean Platelet Volume 9.2; Monocytes # (A) 0.4 k/uL (0-1.0); Monocytes % (A) 6 %; Neutrophils % (A) 76 %; Platelet Count 255 k/uL (150-450); RDW 12.9 % (11.5-15.5)
[2022-08-22 10:19] LABS: Albumin 4.8 g/dL (3.5-5.0); Calcium 9.8 mg/dL (8.4-10.2); Potassium 4.7 mmol/L (3.5-5.1); Total Bilirubin 0.5 mg/dL (0.2-1.3); Total Protein 7.8 g/dL (6.3-8.2)
[2022-08-22] MEDS ORDERED: SODIUM CHLORIDE 0.9% 1,000 ML IV STA (10:37)
--- NOTE | 2022-08-22 10:47 | XR ---
Right foot. HISTORY: Pain following trauma. COMPARISON: None. TECHNIQUE: 3 views right foot were obtained. FINDINGS: There is a nondisplaced fracture of the proximal aspect of the proximal phalanx of the right fifth to e. There is no intra-articular extension of fracture. 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 IMPRESSION: 1. Fracture of the fifth toe as described above. 2. Marked first MTP degeneration.
--- NOTE | 2022-08-22 10:48 | XR ---
Right ankle. HISTORY: Pain following trauma. COMPARISON: None. TECHNIQUE: 3 views the right ankle were obtained. FINDINGS: There is a minimally displaced oblique fracture of the distal right fibula at the level of the ankle mortise. The ankle mortise is intact. There are no radiopaque foreign bodies or abnormal soft tissue calcification. IMPRESSION: Fracture of the distal right fibula.
[2022-08-22 11:29] LABS: Appearance,Urine Clear (Clear); Bilirubin,Urine Negative (Negative); Blood,Urine Trace (Negative); Color,Urine Light Yellow; Glucose,Urine (UA) Negative (Negative); Ketones,Urine Negative (Negative); Leukocyte Esterase,Urine Negative (Negative); Mucus,Urine Rare /hpf; Nitrite,Urine Negative (Negative); Protein,Urine 1+ (Negative); RBC,Urine 1 /hpf (0-5); Specific Gravity,Urine 1.009 (1.001-1.035); Urobilinogen,Urine <2.0 mg/dL (<2.0); WBC,Urine 1 /hpf (0-5)
[2022-08-22] MEDS ORDERED: SODIUM CHLORIDE 0.9% 1,000 ML IV ONE (11:58)
[2022-08-22] MEDS ORDERED: ACETAMINOPHEN TAB 325 MG TAB PO STA (13:26)
--- NOTE | 2022-08-22 16:46 | XR ---
EXAMINATION TYPE: XR chest 1V portable DATE OF EXAM: 08/22/2022 COMPARISON: 04/26/2022 HISTORY: Short of breath TECHNIQUE: FINDINGS: Heart is normal. Lungs are clear of infiltrate. No heart failure. There are no hilar masses . The bony thorax is intact. IMPRESSION: No active cardiopulmonary disease. Normal heart. No change.
[2022-08-22] MEDS: SODIUM CHLORIDE 0.9% 1,000 ML IV SCH (16:59)
[2022-08-22] MEDS: HEPARIN SODIUM,PORCINE/PF 5,000 UNIT/0.5 ML SYRINGE SQ SCH (20:46)
[2022-08-22] MEDS: ACETAMINOPHEN TAB 500 MG TAB PO PRN (20:46)
[2022-08-22] MEDS: lamoTRIgine 100 MG TAB PO SCH (20:47)
--- NOTE | 2022-08-23 02:19 | HP ---
HISTORY AND PHYSICAL CHIEF COMPLAINT: Weakness. HISTORY OF PRESENT ILLNESS: This 62-year-old woman with a past medical history of hypertension, hyperlipidemia, was feeling weak for the last 2 weeks. The patient was feeling dizzy, and the patient had multiple falls. The patient hurt her right ankle, came to [facility]. Right distal fibular fracture was noted. The creatinine was elevated at 6, indicating acute renal failure. Patient admitted for further evaluation and treatment. There is no history of fever, rigors, chills. PAST MEDICAL HISTORY: Reviewed, include hypertension and hyperlipidemia. HOME MEDICATIONS: Reviewed include lisinopril rest of medication noted. ALLERGIES: NTD FAMILY HISTORY: No history of heart disease or strokes in the family. SOCIAL HISTORY: Previous history of smoking. REVIEW OF SYSTEMS: 14-point review of systems is negative except mentioned earlier. PHYSICAL EXAMINATION: VITAL SIGNS: Pulse 75, blood pressure NTD, respirations 16. HEENT: Conjunctivae normal. Oral mucosa dry. NECK: No jugular venous distention. CARDIOVASCULAR: S1, S2 muffled. RESPIRATIONS: Bilateral scattered rhonchi and crackles. ABDOMEN: Soft, nontender. No mass palpable. LEGS: No edema. No swelling. NERVOUS SYSTEM: Higher functions as mentioned earlier. Moves all 4 limbs. LYMPHATICS: No lymph node palpable. SKIN: No rashes. JOINTS: No active deforming arthropathy. LABORATORY DATA: Creatinine is 6.4. Rest of the labs noted. ASSESSMENT: 1. Acute renal failure with severe dehydration. 2. Right fibular fracture. 3. Hypertension. 4. Hyperlipidemia. 5. Multiple medical issues. RECOMMENDATIONS AND DISCUSSION: This is a 62-year-old woman who presented with multiple complex medical issues. We will monitor the patient closely. Cautious IV fluids, nephrology consultation. I will check COVID-19. Orthopedic consultation for the fracture. Resume the home medications. Avoid nephrotoxic medications. Prognosis extremely guarded because of multiple complex medical issues and further recommendations to follow. MMODL / IJN: [id number] / DILMA
[2022-08-23] MEDS: LEVOTHYROXINE 100 MCG TAB PO SCH (05:18)
[2022-08-23] MEDS: SODIUM CHLORIDE 0.9% 1,000 ML IV SCH ×3 (05:18→15:08)
[2022-08-23] MEDS: PANTOPRAZOLE 40 MG TABLET PO SCH (08:13)
[2022-08-23] MEDS: HEPARIN SODIUM,PORCINE/PF 5,000 UNIT/0.5 ML SYRINGE SQ SCH ×2 (08:13→21:13)
[2022-08-23] MEDS: METOPROLOL SUCCINATE (ER) 25 MG TAB.ER.24H PO SCH (10:54)
[2022-08-23 11:29] LABS: Basophils # (A) 0.06 X 10*3/uL (0.00-0.10); Basophils % (A) 1.1 %; Eosinophils # (A) 0.19 X 10*3/uL (0.04-0.35); Eosinophils % (A) 3.4 %; HCT 30.4 % (37.2-46.3); HGB 9.9 g/dL (12.0-15.0); Immature Grans, Automated 0.2 %; Lymphocytes # (A) 1.47 X 10*3/uL (0.90-5.00); Lymphocytes % (A) 26.6 %; MCH 31.3 pg (27.0-32.0); MCHC 32.6 g/dL (32.0-37.0); MCV 96.2 fL (80.0-97.0); Mean Platelet Volume 11.2 fL (9.5-12.2); Monocytes # (A) 0.63 X 10*3/uL (0.20-1.00); Monocytes % (A) 11.4 %; NRBC Per 100 WBC 0 /100 WBCS (0.0-0.0); Neutrophils # (A) 3.17 X 10*3/uL (1.80-7.70); Neutrophils % (A) 57.3 %; Platelet Count 222 X 10*3/uL (140-440); RBC 3.16 X 10*6/uL (4.10-5.20); RDW 13.4 % (11.5-14.5); WBC 5.53 X 10*3/uL (4.50-10.00)
--- NOTE | 2022-08-23 11:29 | P.NPCON ---
History of Present Illness - Reason for Consult Consult date: 08/23/22 acute renal failure - Chief Complaint Fall - History of Present Illness 62-year-old white female admitted to the hospital with fall. Daughter at bedside. She had right ankle fracture. Recently had dental work done a week ago since then decreased oral intake. She also has history of hypertension does not monitor blood pressures at home. She was also taking her antihypertensive medications. Medications include lisinopril. She was feeling dizzy lightheaded at home. And had a fall. Currently hypotensive. Baseline creatinine 0.9 MG per DL, admitted with a creatinine of 0.4 MG per DL. No new labs today. Urine analysis [place]. Review of Systems Constitutional: Reports as per HPI Past Medical History Past Medical History: Hyperlipidemia, Hypertension, Thyroid Disorder History of Any Multi-Drug Resistant Organisms: None Reported Past Surgical History: Tonsillectomy Past Psychological History: Bipolar Smoking Status: Former smoker Past Alcohol Use History: Occasional Past Drug Use History: None Reported Additional Drug Use History / Comment(s): patient quit smoking in February 2022 Medications and Allergies Home Medications Medication Instructions Recorded Confirmed Type Venlafaxine HCl [Effexor XR] 150 mg PO DAILY 04/02/14 08/22/22 History Cariprazine HCl [Vraylar] 1.5 mg PO DAILY 04/26/22 08/22/22 History Ergocalciferol [Vitamin D2 (1250 1,250 mcg PO MO 04/26/22 08/22/22 History Mcg = 97312 Iu)] Melatonin 3 mg PO HS 04/26/22 08/22/22 History QUEtiapine [SEROquel] 200 mg PO HS 04/26/22 08/22/22 History Simvastatin [Zocor] 20 mg PO HS 04/26/22 08/22/22 History Levothyroxine Sodium [Synthroid] 100 mcg PO DAILY 04/27/22 08/22/22 History lamoTRIgine [LaMICtal] 200 mg PO HS 04/27/22 08/22/22 History lisinopriL [Zestril] 20 mg PO DAILY #30 tab 04/27/22 08/22/22 Rx Chlorhexidine Gluconate [Peridex] 10 ml PO QID 08/22/22 08/22/22 History Metoprolol Succinate (ER) [Toprol 25 mg PO DAILY 08/22/22 08/22/22 History Xl] clindamycin HCL [Cleocin] 300 mg PO TID 08/22/22 08/22/22 History Allergies Allergy/AdvReac Type Severity Reaction Status Date / Time lithium AdvReac Nausea Verified 08/22/22 13:52 Physical Exam Vitals: Vital Signs Temp Pulse Pulse Resp BP BP Pulse Ox 08/23/22 08:00 98.3 F 78 18 97/64 97 08/23/22 02:00 97.6 F 85 17 100/62 98 08/22/22 20:53 16 08/22/22 20:38 98.6 F 90 16 103/66 99 08/22/22 16:57 82 16 109/71 99 08/22/22 13:31 78 16 108/69 98 Intake and Output 08/22/22 08/23/22 08/23/22 22:59 06:59 14:59 Intake Total 950 Balance 950 Intake: Intake, IV Titration 650 Amount Sodium Chloride 0.9% 1, 650 000 ml @ 130 mls/hr IV . Q7H42M [facility] Rx#:[id number] Oral 300 Other: Voiding Method Bedside Commode Bedside Commode Bedpan # Voids 2 # Bowel Movements 0 Weight 64.41 kg No acute distress S1-S2 heard Lungs clear No edema Results - Lab Results Most recent lab results Calcium 9.8 mg/dL (8.4-10.2) 08/22/22 09:53 Magnesium 3.0 mg/dL (1.6-2.3) H 08/22/22 09:53 08/22/22 09:53 08/22/22 09:53 Assessment and Plan Assessment: #1 acute kidney injury secondary to hemodynamic ATN with low blood pressures. -Base baseline creatinine 0.9 MG per DL -Urine analysis [place] #2 hypotensive episodes. #3 fall with right ankle fracture Plan: #1 agree with stopping all antihypertensive agents. #2 fluid resuscitation with normal saline #3 add midodrine for hemodynamic support #4 Follow-up on the labs, no acute indication for renal replacement therapy at this time
[2022-08-23 11:50] LABS: African American GFR (CKD) 15.9 (60.0-200.0); Anion Gap 12.73 mmol/L (10.00-18.00); BUN/Creat Ratio 17.1 Ratio (12.00-20.00); Blood Urea Nitrogen 57.8 mg/dL (9.0-27.0); Calcium 8.8 mg/dL (8.7-10.3); Carbon Dioxide 7.8 mmol/L (20.0-27.5); Non-African American GFR(CKD) 13.7 (60.0-200.0); Potassium 4.4 mmol/L (3.5-5.5)
[2022-08-23] MEDS: MIDODRINE 5 MG TAB PO SCH ×2 (12:19→17:02)
--- NOTE | 2022-08-23 15:50 | P.CNOR ---
History of Present Illness - [facility] Consult date: 08/23/22 Requesting physician: Sami Louis Consult reason: other (fractured fibula, fracture toe) History of present illness: Patient is a 62-year-old female with a history of hypertension, hyperlipidemia, thyroid disorder who presented the emergency department yesterday status post fall at home. Patient says she was walking from her kitchen to her living room when she stumbled and fell on her right lower extremity. Patient was seen at bedside this morning with splint to right lower extremity. Patient states the pain is in the right ankle. Patient denies any other locations of pain. Patient denies losing consciousness/hitting her head during the fall. Patient denies any other previous orthopedic surgical history. Patient denies radiation of pain Patient denies chest pain, fever, shortness breath, nausea, vomiting, change in vision, loss of bowel/bladder control. Past Medical History Past Medical History: Hyperlipidemia, Hypertension, Thyroid Disorder History of Any Multi-Drug Resistant Organisms: None Reported Past Surgical History: Tonsillectomy Past Psychological History: Bipolar Smoking Status: Former smoker Past Alcohol Use History: Occasional Past Drug Use History: None Reported Additional Drug Use History / Comment(s): patient quit smoking in February 2022 Medications and Allergies Home Medications Medication Instructions Recorded Confirmed Type Venlafaxine HCl [Effexor XR] 150 mg PO DAILY 04/02/14 08/22/22 History Cariprazine HCl [Vraylar] 1.5 mg PO DAILY 04/26/22 08/22/22 History Ergocalciferol [Vitamin D2 (1250 1,250 mcg PO MO 04/26/22 08/22/22 History Mcg = 48287 Iu)] Melatonin 3 mg PO HS 04/26/22 08/22/22 History QUEtiapine [SEROquel] 200 mg PO HS 04/26/22 08/22/22 History Simvastatin [Zocor] 20 mg PO HS 04/26/22 08/22/22 History Levothyroxine Sodium [Synthroid] 100 mcg PO DAILY 04/27/22 08/22/22 History lamoTRIgine [LaMICtal] 200 mg PO HS 04/27/22 08/22/22 History lisinopriL [Zestril] 20 mg PO DAILY #30 tab 04/27/22 08/22/22 Rx Chlorhexidine Gluconate [Peridex] 10 ml PO QID 08/22/22 08/22/22 History Metoprolol Succinate (ER) [Toprol 25 mg PO DAILY 08/22/22 08/22/22 History Xl] clindamycin HCL [Cleocin] 300 mg PO TID 08/22/22 08/22/22 History Allergies Allergy/AdvReac Type Severity Reaction Status Date / Time lithium AdvReac Nausea Verified 08/22/22 13:52 Physical Examination Osteopathic Statement: *. No significant issues noted on an osteopathic structural exam other than those noted in the History and Physical/Consult. Inspection: Negative for any open fractures, significant erythema/ulcers. Splint is present 2 right lower extremity at this time. Sensation: Sensation is equal, symmetric, bilaterally intact throughout the upper and lower extremities. Palpation: Severe tenderness to palpation over the right lateral malleolus. NTTP throughout rest of exam Range of motion: Full range of motion bilateral upper extremities and left lower extremity on exam. Full range of motion in right knee in flexion extension in right hip flexion/extension. Our alignment exam not performed on right ankle due to splint and fracture Motor: 5/5 in bilateral upper extremities and left lower extremity and exam. 4/5 in resisted right knee flexion/extension and 5/5 in right hip flexion/extension Neurovascular status: Refill under 3 seconds in digits. Her extremities. Radial pulses intact, 2+5. Dorsalis pedis pulse present. Special tests: Negative Homans bilaterally Results - Labs Labs: Abnormal Lab Results - Last 24 Hours (Table) 08/23/22 08/23/22 Range/Units 07:02 07:02 RBC 3.16 L (4.10-5.20) X 10*6/uL Hgb 9.9 L (12.0-15.0) g/dL Hct 30.4 L (37.2-46.3) % Chloride 116 H (96-109) mmol/L Carbon Dioxide 7.8 L* (20.0-27.5) mmol/L BUN 57.8 H (9.0-27.0) mg/dL Creatinine 3.4 H (0.6-1.5) mg/dL Est GFR (CKD-EPI)AfAm 15.9 L (60.0-200.0) Est GFR (CKD-EPI)NonAf 13.7 L (60.0-200.0) H & H 08/22/22 08/23/22 Range/Units 09:53 07:02 Hgb 11.8 9.9 L (11.4-16.0) gm/dL Hct 37.3 30.4 L (34.0-46.0) % Result Diagrams: 08/23/22 07:02 08/23/22 07:02 Assessment and Plan Assessment: 1. Distal right fibula fracture Plan: 1. Distal right fibula fracture - patient sterile bedside this afternoon with splint to right lower extremity. At this time we do not recommend any emergent/ urgent orthopedic surgical intervention. We do recommend conservative treatment at this time we'll use of pain medication. Patient is to be nonweightbearing to the right lower extremity. 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 Patient may follow-up in the outpatient setting with Dr. Newton for further evaluation. Patient is stable from an orthopedic standpoint for discharge. We will continue to be available if needed. At this time orthopedics is signing off. Please do not hesitate to contact us for any further questions. 2. Appreciate medical management; appreciate nephrology management 3. Pain management - [place]; Tylenol 4. DVT prophylaxis - heparin 5. GI prophylaxis - Protonix 6. PT/OT - nonweightbearing right lower extremity. Use walker/crutches 7. Appreciate consult Time with Patient: Less than 30
[2022-08-23] MEDS: lamoTRIgine 100 MG TAB PO SCH (21:13)
[2022-08-24] MEDS: ACETAMINOPHEN TAB 500 MG TAB PO PRN (00:04)
[2022-08-24] MEDS: SODIUM CHLORIDE 0.9% 1,000 ML IV SCH ×2 (00:05→05:14)
[2022-08-24] MEDS: LEVOTHYROXINE 100 MCG TAB PO SCH (05:14)
[2022-08-24] MEDS: HYDROcodone/APAP 5-325MG 1 EACH TAB PO PRN ×2 (05:20→13:25)
[2022-08-24] MEDS: PANTOPRAZOLE 40 MG TABLET PO SCH (08:38)
[2022-08-24] MEDS: HEPARIN SODIUM,PORCINE/PF 5,000 UNIT/0.5 ML SYRINGE SQ SCH ×2 (08:38→21:28)
[2022-08-24] MEDS: MIDODRINE 5 MG TAB PO SCH ×3 (08:38→17:18)
[2022-08-24] MEDS ORDERED: ERGOCALCIFEROL 1,250 MCG (50,000 IU) CAPSULE PO SCH (09:00)
[2022-08-24 09:04] LABS: African American GFR (CKD) 26.8 (60.0-200.0); Anion Gap 10.9 mmol/L (10.00-18.00); BUN/Creat Ratio 17.27 Ratio (12.00-20.00); Calcium 8.1 mg/dL (8.7-10.3); Carbon Dioxide 11.1 mmol/L (20.0-27.5); Non-African American GFR(CKD) 23.1 (60.0-200.0); Potassium 4.2 mmol/L (3.5-5.5)
[2022-08-24 09:11] LABS: Basophils # (A) 0.07 X 10*3/uL (0.00-0.10); Basophils % (A) 1.2 %; Eosinophils # (A) 0.17 X 10*3/uL (0.04-0.35); HCT 27.4 % (37.2-46.3); Immature Grans, Automated 0.2 %; Lymphocytes % (A) 42.2 %; MCH 31.4 pg (27.0-32.0); MCHC 32.8 g/dL (32.0-37.0); MCV 95.5 fL (80.0-97.0); Mean Platelet Volume 11.3 fL (9.5-12.2); Monocytes # (A) 0.59 X 10*3/uL (0.20-1.00); Monocytes % (A) 10.4 %; NRBC Per 100 WBC 0 /100 WBCS (0.0-0.0); Neutrophils # (A) 2.45 X 10*3/uL (1.80-7.70); Platelet Count 225 X 10*3/uL (140-440); RBC 2.87 X 10*6/uL (4.10-5.20); RDW 13.7 % (11.5-14.5); WBC 5.69 X 10*3/uL (4.50-10.00)
[2022-08-24] MEDS: METOPROLOL SUCCINATE (ER) 25 MG TAB.ER.24H PO SCH (10:13)
--- NOTE | 2022-08-24 11:01 | PN ---
PROGRESS NOTE SUBJECTIVE: This 62-year-old woman, who was admitted with acute renal failure with severe dehydration, is being closely monitored. . No chest pain. No palpitations. No fever. The creatinine is improved to 3.4 today. OBJECTIVE: VITAL SIGNS: Pulse is 78, blood pressure , respirations 18. CHEST: Scattered rhonchi. ABDOMEN: Soft. NERVOUS SYSTEM: Nonfocal. LABORATORY DATA: Reviewed. ASSESSMENT: 1. Acute renal failure with severe dehydration. 2. Right fibular fracture. 3. Hypertension. 4. Hyperlipidemia. 5. Multiple medical issues. RECOMMENDATIONS: I recommend to continue current medications and symptomatic treatment. Otherwise, continue with IV fluids. Repeat labs. Closely follow with Nephrology. See orders for further details. Further recommendations to follow. MMODL / IJN: [id number] /
--- NOTE | 2022-08-24 12:03 | P.PN ---
Subjective Patient is seen in follow-up for acute kidney injury. Renal function improving. Admits to good urine output. No vomiting or diarrhea. No chest pain or shortness of breath. Blood pressure stable. Vital signs are stable. General: The patient appeared well nourished and normally developed. HEENT: Head exam is unremarkable. LUNGS: Breath sounds decreased. HEART: Rate and Rhythm are regular. ABDOMEN: Soft, no distention. EXTREMITITES: No edema. Objective - Vital Signs Vital signs: Vital Signs Temp 98.5 F 08/24/22 07:59 Pulse 78 08/24/22 10:13 Resp 16 08/24/22 08:00 BP 102/57 08/24/22 10:13 Pulse Ox 98 08/24/22 07:59 FiO2 Intake & Output 08/23/22 08/24/22 08/24/22 18:59 06:59 18:59 Intake Total 400 Balance 400 Intake: Oral 400 Other: Voiding Method Bedside Commode Toilet Toilet Bedside Commode Bedside Commode # Voids 3 1 - Labs CBC & Chem 7: 08/24/22 05:22 08/24/22 05:22 Labs: Abnormal Lab Results - Last 24 Hours (Table) 08/23/22 08/24/22 08/24/22 Range/Units 07:02 05:22 05:22 RBC 2.87 L (4.10-5.20) X 10*6/uL Hgb 9.0 L (12.0-15.0) g/dL Hct 27.4 L (37.2-46.3) % Chloride 116 H 120 H (96-109) mmol/L Carbon Dioxide 7.8 L* 11.1 L (20.0-27.5) mmol/L BUN 57.8 H 38.0 H (9.0-27.0) mg/dL Creatinine 3.4 H 2.2 H (0.6-1.5) mg/dL Est GFR (CKD-EPI)AfAm 15.9 L 26.8 L (60.0-200.0) Est GFR (CKD-EPI)NonAf 13.7 L 23.1 L (60.0-200.0) Calcium 8.1 L (8.7-10.3) mg/dL Assessment and Plan Plan: Assessment: 1. Acute kidney injury secondary to hemodynamic ATN improving with IV hydration. Crit 6.4 on admission and is 2.2 today. Creatinine 0.7 dated 04/27/2022. 2. Metabolic acidosis secondary to acute kidney injury and IV fluids. 3. Status post fall with right ankle fracture. 4. Anemia. Rule out iron deficiency. Plan: Stop normal saline. Start bicarb drip to be run at 80 mL an hour. Encouraged oral intake. Maintain midodrine. Hold for systolic blood pressure greater than 110. Continue to monitor renal function and urine output. Check iron studies.
[2022-08-24] MEDS: DEXTROSE 5% IN WATER 1,000 ML with SODIUM BICARB (1 MEQ/ML) 150 ML IV SCH (13:34)
[2022-08-24 15:48] LABS: % Iron Saturation 55.27 (12.00-45.00)
[2022-08-24] MEDS: QUEtiapine 200 MG TAB PO SCH (21:28)
[2022-08-24] MEDS: lamoTRIgine 100 MG TAB PO SCH (21:28)
[2022-08-24] MEDS: VENLAFAXINE HCL ER 150 MG CAP PO SCH (21:43)
--- NOTE | 2022-08-24 22:22 | P.PN ---
Subjective Progress Note Date: 08/24/22 She is feeling better today and less pain in her ankle. Her renal function continues to improve with Cr at 2.2. Cl 120 Objective - Vital Signs Vital signs: Vital Signs Temp 98.2 F 08/24/22 20:00 Pulse 73 08/24/22 20:00 Resp 15 08/24/22 20:00 BP 114/68 08/24/22 20:00 Pulse Ox 100 08/24/22 20:00 FiO2 Intake & Output 08/24/22 08/24/22 08/25/22 06:59 18:59 06:59 Intake Total 400 Balance 400 Intake: Oral 400 Other: Voiding Method Toilet Toilet Toilet Bedside Commode Bedside Commode Bedside Commode # Voids 1 4 - Exam Gen: well developed, well nourished, NAD CV: RRR, no murmur Lungs: CTAB Ext: RLE in cast - Labs CBC & Chem 7: 08/24/22 05:22 08/24/22 05:22 Labs: Abnormal Lab Results - Last 24 Hours (Table) 08/24/22 08/24/22 08/24/22 Range/Units 05:22 05:22 05:22 RBC 2.87 L (4.10-5.20) X 10*6/uL Hgb 9.0 L (12.0-15.0) g/dL Hct 27.4 L (37.2-46.3) % Chloride 120 H (96-109) mmol/L Carbon Dioxide 11.1 L (20.0-27.5) mmol/L BUN 38.0 H (9.0-27.0) mg/dL Creatinine 2.2 H (0.6-1.5) mg/dL Est GFR (CKD-EPI)AfAm 26.8 L (60.0-200.0) Est GFR (CKD-EPI)NonAf 23.1 L (60.0-200.0) Calcium 8.1 L (8.7-10.3) mg/dL TIBC 192 L (228-460) ug/dL % Saturation 55.27 H (12.00-45.00) Transferrin 137.0 L (204.0-354.0) mg/dL Ferritin 438.0 H (10.0-291.0) ng/mL Assessment and Plan Plan: Switch IV fluids from NS to bicarb. NWB to RLE. PT, OT
[2022-08-25] MEDS: DEXTROSE 5% IN WATER 1,000 ML with SODIUM BICARB (1 MEQ/ML) 150 ML IV SCH (04:24)
[2022-08-25] MEDS: LEVOTHYROXINE 100 MCG TAB PO SCH (05:57)
[2022-08-25] MEDS: PANTOPRAZOLE 40 MG TABLET PO SCH (05:59)
[2022-08-25] MEDS: MIDODRINE 5 MG TAB PO SCH ×3 (06:00→17:51)
[2022-08-25] MEDS: HEPARIN SODIUM,PORCINE/PF 5,000 UNIT/0.5 ML SYRINGE SQ SCH ×2 (08:29→20:14)
[2022-08-25] MEDS: METOPROLOL SUCCINATE (ER) 25 MG TAB.ER.24H PO SCH (08:29)
[2022-08-25] MEDS: VENLAFAXINE HCL ER 150 MG CAP PO SCH (08:29)
--- NOTE | 2022-08-25 08:42 | P.CRDCN ---
History of Present Illness History of present illness: HISTORY OF PRESENTING ILLNESS Patient is a pleasant 62-year-old female with history of hypertension, hypothyroidism, hyperlipidemia, anxiety, depression who follows with Dr. Alcantar. She was previously seen in April 2022 and previously had issues with extremely elevated blood pressures in the 190s. Unfortunately over last 3 weeks she has been feeling increased lightheadedness, fatigue, decreased appetite. She does state some of this started when she got her teeth pulled and was placed on antibiotics for this as well as started to note decreased appetite and was not really eating or drinking much.. She states she lost approximately 25 pounds. When she came to emergency department she was noted to be hypotensive with blood pressures in the 80s over 50s with acute kidney failure with creatinine up to 6. She therefore was given IV fluids and antihypertensive medications discontinued and she was started on Midrin. She has felt much better over last 2 days with creatinine improving to 2 range. Blood pressures somewhat improved mainly in the 110s to 130s. She admits most of her lightheadedness has improved. She did have a more significant event of a fall however denies any loss of consciousness. She did trip and roll over her right foot and right foot still somewhat painful. Denies any recent chest pain, pressure, shortness breath. Denies any recent changes to her medications. She has been having some chills over the last week and a half however no fevers. Previous echo April 2022 showed EF 60-65%, mild tricuspid regurgitation and no other significant valvular disease. Stress EKG from 04/27/2022 showed no inducible ischemia. REVIEW OF SYSTEMS At the time of my exam: CONSTITUTIONAL: Denies fever or chills. CARDIOVASCULAR: Denies chest pain, shortness of breath, orthopnea, PND or palpitations. +Lightheadedness. RESPIRATORY: Denies cough. GASTROINTESTINAL: Denies abdominal pain, diarrhea, constipation, nausea or vomiting. +Decreased appetite MUSCULOSKELETAL: Denies myalgias. NEUROLOGIC: Denies numbness, tingling or weakness. ENDOCRINE: Denies fatigue, weight change, polydipsia or polyurina. GENITOURINARY: Denies burning, hematuria or urgency with micturation. HEMATOLOGIC: Denies history of anemia or bleeding. PHYSICAL EXAMINATION Vital signs reviewed. CONSTITUTIONAL: No apparent distress. HEENT: Head is normocephalic. Pupils are equal, round. Sclerae anicteric. Mucous membranes of the mouth are moist. No JVD. No carotid bruit. CHEST EXAMINATION: Lungs are clear to auscultation. No chest wall tenderness is noted on palpation or with deep breathing. HEART EXAMINATION: Regular rate and rhythm. S1, S2 heard. No murmurs, gallops or rub. ABDOMEN: Soft, nontender. Positive bowel sounds. EXTREMITIES: 2+ peripheral pulses, no lower extremity edema and no calf tenderness. NEUROLOGIC EXAMINATION: Patient is awake, alert and oriented x3. ASSESSMENT 1. Near syncopal episodes related to dehydration, decreased appetite, antihypertensive medications, exacerbated by approximately 25 pound weight loss. 2. Acute kidney injury with creatinine up to 6 related to hypotensive episodes and decreased appetite 3. Hypertension, recently hypotensive on Midodrine 4. Decreased appetite may be related to recent dental procedure, antibiotics 5. Hyperlipidemia 6. Anemia PLAN Patient with near syncopal episodes and recent fall related to hypotensive episodes. Likely mainly related to decreased blood pressures mainly related to decreased oral intake and dehydration. Appears to be improving with IV fluids. Continue to hold lisinopril and antihypertensive medications. Continue metoprolol for now however if still hypotensive may discontinue. Continue with Midodrine for now as needed. Check 2-D echo for completeness sake to rule out a ny effusion or other structural heart disease that may be causing hypotension. If unrevealing patient is cleared from a cardiology standpoint for discharge with continuing to hold antihypertensive meds. Followup with Dr Alcantar. Past Medical History Past Medical History: Hyperlipidemia, Hypertension, Thyroid Disorder History of Any Multi-Drug Resistant Organisms: None Reported Past Surgical History: Tonsillectomy Past Psychological History: Bipolar Smoking Status: Former smoker Past Alcohol Use History: Occasional Past Drug Use History: None Reported Additional Drug Use History / Comment(s): patient quit smoking in February 2022 Medications and Allergies Home Medications Medication Instructions Recorded Confirmed Type Venlafaxine HCl [Effexor XR] 150 mg PO DAILY 04/02/14 08/22/22 History Cariprazine HCl [Vraylar] 1.5 mg PO DAILY 04/26/22 08/22/22 History Ergocalciferol [Vitamin D2 (1250 1,250 mcg PO MO 04/26/22 08/22/22 History Mcg = 91091 Iu)] Melatonin 3 mg PO HS 04/26/22 08/22/22 History QUEtiapine [SEROquel] 200 mg PO HS 04/26/22 08/22/22 History Simvastatin [Zocor] 20 mg PO HS 04/26/22 08/22/22 History Levothyroxine Sodium [Synthroid] 100 mcg PO DAILY 04/27/22 08/22/22 History lamoTRIgine [LaMICtal] 200 mg PO HS 04/27/22 08/22/22 History lisinopriL [Zestril] 20 mg PO DAILY #30 tab 04/27/22 08/22/22 Rx Chlorhexidine Gluconate [Peridex] 10 ml PO QID 08/22/22 08/22/22 History Metoprolol Succinate (ER) [Toprol 25 mg PO DAILY 08/22/22 08/22/22 History Xl] clindamycin HCL [Cleocin] 300 mg PO TID 08/22/22 08/22/22 History Allergies Allergy/AdvReac Type Severity Reaction Status Date / Time lithium AdvReac Nausea Verified 08/22/22 13:52 Physical Exam Vitals: Vital Signs Temp Pulse Pulse Resp BP Pulse Ox 08/25/22 08:22 95 08/25/22 08:00 98.2 F 71 18 120/78 99 08/25/22 04:07 67 91/53 08/25/22 02:00 97.9 F 64 15 84/52 95 08/24/22 20:00 98.2 F 73 15 114/68 100 08/24/22 14:00 98.4 F 86 17 110/64 100 08/24/22 12:17 66 127/66 08/24/22 10:13 78 102/57 Intake and Output 08/24/22 08/25/22 08/25/22 22:59 06:59 14:59 Other: Voiding Method Toilet Bedside Commode # Voids 4 1 Results 08/24/22 05:22 08/24/22 05:22 CBC 08/24/22 Range/Units 05:22 WBC 5.69 (4.50-10.00) X 10*3/uL RBC 2.87 L (4.10-5.20) X 10*6/uL Hgb 9.0 L (12.0-15.0) g/dL Hct 27.4 L (37.2-46.3) % Plt Count 225 (140-440) X 10*3/uL Comprehensive Metabolic Panel 08/24/22 Range/Units 05:22 Sodium 142 (135-145) mmol/L Potassium 4.2 (3.5-5.5) mmol/L Chloride 120 H (96-109) mmol/L Carbon Dioxide 11.1 L (20.0-27.5) mmol/L BUN 38.0 H (9.0-27.0) mg/dL Creatinine 2.2 H (0.6-1.5) mg/dL Glucose 83 (70-110) mg/dL Calcium 8.1 L (8.7-10.3) mg/dL Current Medications Generic Name Dose Route Start Last Admin Trade Name Freq PRN Reason Stop Dose Admin Acetaminophen 500 mg 08/22/22 15:34 08/24/22 00:04 Acetaminophen Tab 500 Mg Tab PO 500 mg Q6HR PRN Administration Fever and/ or Pain Hydrocodone Bitart/Acetaminophen 1 each 08/22/22 15:34 08/24/22 13:25 Hydrocodone/Apap 5-325mg 1 Each Tab PO 1 each Q6HR PRN Administration Pain Ergocalciferol 1,250 mcg 08/24/22 09:00 08/24/22 08:38 Ergocalciferol 1,250 Mcg (50,000 Iu) Capsule PO 1,250 mcg Mo@0900 CURT Administration Heparin Sodium (Porcine) 5,000 unit 08/22/22 21:00 08/25/22 08:29 Heparin Sodium,Porcine/Pf 5,000 Unit/0.5 Ml Syringe SQ 5,000 unit Q12HR CURT Administration Sodium Bicarbonate 150 ml/ 1,150 mls @ 80 mls/hr 08/24/22 12:15 08/25/22 04:24 Dextrose/Water IV 80 mls/hr .[id number] CURT Administration Lamotrigine 200 mg 08/22/22 21:00 08/24/22 21:28 Lamotrigine 100 Mg Tab PO 200 mg HS CURT Administration Levothyroxine Sodium 100 mcg 08/23/22 06:30 08/25/22 05:57 Levothyroxine 100 Mcg Tab PO 100 mcg DAILY@0630 CURT Administration Metoprolol Succinate 25 mg 08/23/22 09:00 08/25/22 08:29 Metoprolol Succinate (Er) 25 Mg Tab.Er.24h PO 25 mg DAILY CURT Administration Midodrine 5 mg 08/23/22 12:30 08/25/22 06:00 Midodrine 5 Mg Tab PO Not Given AC-TID CURT Pantoprazole Sodium 40 mg 08/23/22 07:30 08/25/22 05:59 Pantoprazole 40 Mg Tablet PO 40 mg [id number] CURT Administration Quetiapine Fumarate 200 mg 08/24/22 21:15 08/24/22 21:28 Quetiapine 200 Mg Tab PO 200 mg HS CURT Administration Venlafaxine HCl 150 mg 08/24/22 21:45 08/25/22 08:29 Venlafaxine Hcl Er 150 Mg Cap PO Not Given DAILY CURT Intake and Output 08/24/22 08/25/22 08/25/22 22:59 06:59 14:59 Other: Voiding Method Toilet Bedside Commode # Voids 4 1 08/24/22 05:22 08/24/22 05:22
[2022-08-25] MEDS ORDERED: VENLAFAXINE HCL ER 150 MG CAP PO SCH (09:00)
[2022-08-25] MEDS: ACETAMINOPHEN TAB 500 MG TAB PO PRN ×2 (09:51→17:05)
--- NOTE | 2022-08-25 10:57 | P.PN ---
Subjective Patient is seen in follow-up for acute kidney injury. Renal function improving. Morning labs pending. Admits to good urine output. No vomiting or diarrhea. No chest pain or shortness of breath. Blood pressure stable. Vital signs are stable. General: The patient appeared well nourished and normally developed. HEENT: Head exam is unremarkable. LUNGS: Breath sounds decreased. HEART: Rate and Rhythm are regular. ABDOMEN: Soft, no distention. EXTREMITITES: No edema. Objective - Vital Signs Vital signs: Vital Signs Temp 98.2 F 08/25/22 08:00 Pulse 71 08/25/22 08:00 Resp 18 08/25/22 08:00 BP 120/78 08/25/22 08:00 Pulse Ox 95 08/25/22 08:22 FiO2 Intake & Output 08/24/22 08/25/22 08/25/22 18:59 06:59 18:59 Other: Voiding Method Toilet Toilet Toilet Bedside Commode Bedside Commode Bedside Commode # Voids 4 1 - Labs CBC & Chem 7: 08/24/22 05:22 08/24/22 05:22 Labs: Abnormal Lab Results - Last 24 Hours (Table) 08/24/22 Range/Units 05:22 TIBC 192 L (228-460) ug/dL % Saturation 55.27 H (12.00-45.00) Transferrin 137.0 L (204.0-354.0) mg/dL Ferritin 438.0 H (10.0-291.0) ng/mL Assessment and Plan Plan: Assessment: 1. Acute kidney injury secondary to hemodynamic ATN improving with IV hydration. Creatinine 6.4 on admission - 2.2 yesterday. Creatinine 0.7 dated 04/27/2022. 2. Metabolic acidosis secondary to acute kidney injury and IV fluids. On bicarb drip. 3. Status post fall with right ankle fracture. 4. Anemia. Iron replete. Plan: Maintain bicarb drip. Check renal ultrasound. Encouraged oral intake. Maintain midodrine. Hold for systolic blood pressure greater than 110. Continue to monitor renal function and urine output. Follow-up echocardiogram. Follow-up morning labs.
[2022-08-25 11:46] LABS: African American GFR (CKD) 43 (>60 ml/min/1.73 sqM); Anion Gap 7 mmol/L; Blood Urea Nitrogen 20 mg/dL (7-17); Calcium 7.9 mg/dL (8.4-10.2); Carbon Dioxide 21 mmol/L (22-30); Chloride 114 mmol/L (98-107); Glucose 99 mg/dL (74-99); Magnesium 1.3 mg/dL (1.6-2.3); Non-African American GFR(CKD) 37 (>60 ml/min/1.73 sqM); Potassium 3.6 mmol/L (3.5-5.1); Sodium 142 mmol/L (137-145)
[2022-08-25] MEDS ORDERED: Magnesium Replacement Protocol 1 EACH MISC MISCELLANE PRN ×2 (11:58→11:59)
--- NOTE | 2022-08-25 12:11 | P.PN ---
Subjective Progress Note Date: 08/25/22 Continues to feel better, she ambulated with walker maintaining nonweightbearing status of affected extremity, with PT, tolerated exertion well. Right lower extremity splinted , reporting Pain controlled. Evaluated by cardiology with recommendations , Echo pending. Maintained on bicarb drip with current bicarb improving, 21. Renal function improving, BUN 20, creatinine 1.49. Magnesium 1.3. Denies chest pain, palpitations or shortness of breath. Objective - Vital Signs Vital signs: Vital Signs Temp 98.2 F 08/25/22 08:00 Pulse 71 08/25/22 08:00 Resp 18 08/25/22 08:00 BP 120/78 08/25/22 08:00 Pulse Ox 95 08/25/22 08:22 FiO2 Intake & Output 08/24/22 08/25/22 08/25/22 18:59 06:59 18:59 Other: Voiding Method Toilet Toilet Toilet Bedside Commode Bedside Commode Bedside Commode # Voids 4 1 - Exam - Exam Gen: well developed, well nourished, NAD CV: RRR, no murmur Lungs: CTAB Ext: RLE in cast - Labs CBC & Chem 7: 08/24/22 05:22 08/25/22 11:01 Labs: Abnormal Lab Results - Last 24 Hours (Table) 08/24/22 08/25/22 Range/Units 05:22 11:01 Chloride 114 H (98-107) mmol/L Carbon Dioxide 21 L (22-30) mmol/L BUN 20 H (7-17) mg/dL Creatinine 1.49 H (0.52-1.04) mg/dL Calcium 7.9 L (8.4-10.2) mg/dL Magnesium 1.3 L (1.6-2.3) mg/dL TIBC 192 L (228-460) ug/dL % Saturation 55.27 H (12.00-45.00) Transferrin 137.0 L (204.0-354.0) mg/dL Ferritin 438.0 H (10.0-291.0) ng/mL Assessment and Plan Assessment: Acute renal failure with severe dehydration Near-syncope, status post fall, sustaining right fibular fracture, conservative management Hypertension Hyperlipidemia Hypomagnesemia Metabolic acidosis, requiring bicarb drip Anemia Plan: Continue on current medication regime ,monitoring and symptomatic treatment. Bicarb drip as per nephrology. Close monitoring of hemoglobin, bicarb/renal function, electrolytes with repeat labs ordered for a.mDerrick elmore. 30 day event monitor at DC secondary to etiology unclear related to near- syncope. Pain management, nonweightbearing of right lower extremity as recommended per orthopedics surgery. The impression and plan of care has been dictated as directed. : I performed a history and examination of this patient, discussed the same with the dictator. I agree with the dictator's note ,documented as a scribe. Any additional findings or plans will be noted.
--- NOTE | 2022-08-25 15:14 | US ---
EXAMINATION TYPE: US kidneys/renal and bladder DATE OF EXAM: 08/25/2022 COMPARISON: NONE CLINICAL HISTORY: 62 year-old female acute kidney injury, abnormal renal labs TECHNIQUE: Multiple sonographic images of the kidneys and bladder are obtained. FINDINGS: EXAM MEASUREMENTS: Right Kidney: 9.4 x 5.1 x 4.6 cm Left Kidney: 10.8 x 6.0 x 5.5 cm Right Kidney: No hydronephrosis or masses seen Left Kidney: No hydronephrosis or masses seen Bladder: wnl IMPRESSION: No hydronephrosis.
[2022-08-25] MEDS: MAGNESIUM SULFATE-D5W PMX 1 GM in DEXTROSE/WATER 1 100ML.BAG IVPB SCH ×3 (15:27→17:51)
[2022-08-25] MEDS: SODIUM CHLORIDE 0.9% 1,000 ML IV SCH (17:06)
[2022-08-25] MEDS ORDERED: VENLAFAXINE HCL ER 150 MG CAP PO STA (17:22)
[2022-08-25] MEDS: QUEtiapine 200 MG TAB PO SCH (20:13)
[2022-08-25] MEDS: lamoTRIgine 100 MG TAB PO SCH (20:13)
[2022-08-26] MEDS: HYDROcodone/APAP 5-325MG 1 EACH TAB PO PRN (03:54)
[2022-08-26] MEDS: LEVOTHYROXINE 100 MCG TAB PO SCH (06:17)
[2022-08-26 08:06] LABS: African American GFR (CKD) 55 (>60 ml/min/1.73 sqM); Anion Gap 9 mmol/L; Blood Urea Nitrogen 13 mg/dL (7-17); Calcium 7.8 mg/dL (8.4-10.2); Carbon Dioxide 22 mmol/L (22-30); Chloride 112 mmol/L (98-107); Glucose 87 mg/dL (74-99); Non-African American GFR(CKD) 47 (>60 ml/min/1.73 sqM); Potassium 2.9 mmol/L (3.5-5.1); Sodium 143 mmol/L (137-145)
[2022-08-26 08:17] VITALS: RESP 17
[2022-08-26] MEDS: MIDODRINE 5 MG TAB PO SCH ×2 (08:40→12:15)
--- NOTE | 2022-08-26 09:32 | P.PN ---
Subjective HISTORY OF PRESENTING ILLNESS Patient is a pleasant 62-year-old female with history of hypertension, hypothyroidism, hyperlipidemia, anxiety, depression who follows with Dr. Alcantar. She was previously seen in April 2022 and previously had issues with extremely elevated blood pressures in the 190s. Unfortunately over last 3 weeks she has been feeling increased lightheadedness, fatigue, decreased appetite. She does state some of this started when she got her teeth pulled and was placed on antibiotics for this as well as started to note decreased appetite and was not really eating or drinking much.. She states she lost approximately 25 pounds. When she came to emergency department she was noted to be hypotensive with blood pressures in the 80s over 50s with acute kidney failure with creatinine up to 6. She therefore was given IV fluids and antihypertensive medications discontinued and she was started on Midrin. She has felt much better over last 2 days with creatinine improving to 2 range. Blood pressures somewhat improved mainly in the 110s to 130s. She admits most of her lightheadedness has improved. She did have a more significant event of a fall however denies any loss of consciousness. She did trip and roll over her right foot and right foot still somewhat painful. Denies any recent chest pain, pressure, shortness breath. Denies any recent changes to her medications. She has been having some chills over the last week and a half however no fevers. Previous echo April 2022 showed EF 60-65%, mild tricuspid regurgitation and no other significant valvular disease. Stress EKG from 04/27/2022 showed no inducible ischemia. 08/26 seen and examined. Kidney function continues improved. Limited 2-D echo performed this morning, results pending. Denies any chest pain or pressure. Blood pressures in the low 100s. PHYSICAL EXAMINATION Vital signs reviewed. CONSTITUTIONAL: No apparent distress. HEENT: Head is normocephalic. Pupils are equal, round. Sclerae anicteric. Mucous membranes of the mouth are moist. No JVD. No carotid bruit. CHEST EXAMINATION: Lungs are clear to auscultation. No chest wall tenderness is noted on palpation or with deep breathing. HEART EXAMINATION: Regular rate and rhythm. S1, S2 heard. No murmurs, gallops or rub. ABDOMEN: Soft, nontender. Positive bowel sounds. EXTREMITIES: 2+ peripheral pulses, no lower extremity edema and no calf tenderness. NEUROLOGIC EXAMINATION: Patient is awake, alert and oriented x3. ASSESSMENT 1. Near syncopal episodes related to dehydration, decreased appetite, antihypertensive medications, exacerbated by approximately 25 pound weight loss. 2. Acute kidney injury with creatinine up to 6 related to hypotensive episodes and decreased appetite 3. Hypertension, recently hypotensive on Midodrine 4. Decreased appetite may be related to recent dental procedure, antibiotics 5. Hyperlipidemia 6. Anemia PLAN Continue with metoprolol for now however consider discontinuation if blood pressures remain low. Patient appears stable for discharge home from a cardiology standpoint. Await Limited 2-D echo results to rule out any effusion or structural heart disease. Objective - Vital Signs Vital signs: Vital Signs Temp 98.1 F 08/26/22 07:41 Pulse 68 08/26/22 08:12 Resp 17 08/26/22 08:12 BP 99/66 08/26/22 07:41 Pulse Ox 95 08/26/22 07:41 FiO2 Intake & Output 08/25/22 08/26/22 08/26/22 18:59 06:59 18:59 Other: Voiding Method Bedside Commode Toilet Toilet # Voids 1 1 - Labs CBC & Chem 7: 08/24/22 05:22 08/26/22 07:32 Labs: Abnormal Lab Results - Last 24 Hours (Table) 08/25/22 08/26/22 Range/Units 11:01 07:32 Potassium 2.9 L (3.5-5.1) mmol/L Chloride 114 H 112 H (98-107) mmol/L Carbon Dioxide 21 L (22-30) mmol/L BUN 20 H (7-17) mg/dL Creatinine 1.49 H 1.22 H (0.52-1.04) mg/dL Calcium 7.9 L 7.8 L (8.4-10.2) mg/dL Magnesium 1.3 L (1.6-2.3) mg/dL
[2022-08-26] MEDS: VENLAFAXINE HCL ER 150 MG CAP PO SCH (09:43)
[2022-08-26] MEDS: METOPROLOL SUCCINATE (ER) 25 MG TAB.ER.24H PO SCH (09:43)
[2022-08-26] MEDS: HEPARIN SODIUM,PORCINE/PF 5,000 UNIT/0.5 ML SYRINGE SQ SCH (09:44)
[2022-08-26] MEDS: PANTOPRAZOLE 40 MG TABLET PO SCH (09:44)
[2022-08-26 10:45] LABS: Basophils # (A) 0.04 X 10*3/uL (0.00-0.10); Basophils % (A) 0.8 %; Eosinophils # (A) 0.26 X 10*3/uL (0.04-0.35); Eosinophils % (A) 5.1 %; HCT 25.6 % (37.2-46.3); HGB 8.5 g/dL (12.0-15.0); Immature Grans, Automated 0.2 %; Lymphocytes # (A) 2.42 X 10*3/uL (0.90-5.00); Lymphocytes % (A) 47.8 %; MCH 30.8 pg (27.0-32.0); MCHC 33.2 g/dL (32.0-37.0); MCV 92.8 fL (80.0-97.0); Mean Platelet Volume 11.6 fL (9.5-12.2); Monocytes # (A) 0.56 X 10*3/uL (0.20-1.00); Monocytes % (A) 11.1 %; NRBC Per 100 WBC 0 /100 WBCS (0.0-0.0); Neutrophils # (A) 1.77 X 10*3/uL (1.80-7.70); Platelet Count 211 X 10*3/uL (140-440); RBC 2.76 X 10*6/uL (4.10-5.20); RDW 13.6 % (11.5-14.5); WBC 5.06 X 10*3/uL (4.50-10.00)
[2022-08-26] MEDS ORDERED: Potassium Replacement Protocol 1 EACH MISC MISCELLANE PRN (10:45)
[2022-08-26] MEDS: POTASSIUM CHLORIDE ER 20 MEQ TAB.ER PO SCH ×3 (10:56→13:53)
[2022-08-26] MEDS: SODIUM CHLORIDE 0.9% 1,000 ML IV SCH (11:10)
--- NOTE | 2022-08-26 12:07 | P.PN ---
Subjective Patient is seen in follow-up for acute kidney injury. Renal function improving. Potassium low. Admits to good urine output. No vomiting or diarrhea. No chest pain or shortness of breath. Blood pressure stable. Oral intake is poor. Trying to drink ensure. Vital signs are stable. General: No acute distress. HEENT: Head exam is unremarkable. LUNGS: Breath sounds decreased. HEART: Rate and Rhythm are regular. ABDOMEN: Soft, no distention. EXTREMITITES: No edema. Objective - Vital Signs Vital signs: Vital Signs Temp 98.1 F 08/26/22 07:41 Pulse 68 08/26/22 08:12 Resp 17 08/26/22 08:12 BP 99/66 08/26/22 07:41 Pulse Ox 95 08/26/22 07:41 FiO2 Intake & Output 08/25/22 08/26/22 08/26/22 18:59 06:59 18:59 Other: Voiding Method Bedside Commode Toilet Toilet # Voids 1 1 - Labs CBC & Chem 7: 08/26/22 07:32 08/26/22 07:32 Labs: Abnormal Lab Results - Last 24 Hours (Table) 08/26/22 08/26/22 Range/Units 07:32 07:32 RBC 2.76 L (4.10-5.20) X 10*6/uL Hgb 8.5 L (12.0-15.0) g/dL Hct 25.6 L (37.2-46.3) % Neutrophils # 1.77 L (1.80-7.70) X 10*3/uL Potassium 2.9 L (3.5-5.1) mmol/L Chloride 112 H (98-107) mmol/L Creatinine 1.22 H (0.52-1.04) mg/dL Calcium 7.8 L (8.4-10.2) mg/dL Assessment and Plan Plan: Assessment: 1. Acute kidney injury secondary to hemodynamic ATN improving with IV hydration. Creatinine 6.4 on admission -1.22 today. Creatinine 0.7 dated 04/27/2022. No hydronephrosis noted on kidney ultrasound. 2. Metabolic acidosis secondary to acute kidney injury and IV fluids. Status post bicarb drip. Better. 3. Status post fall with right ankle fracture. 4. Anemia. Iron replete. 5. Hypokalemia from poor intake. Magnesium normal. 6. Hypomagnesemia from poor intake. Replaced. Better. Plan: Maintain normal saline. Potassium being replaced. Encouraged oral intake. Maintain midodrine. Hold for systolic blood pressure greater than 110. Continue to monitor renal function and urine output. Check orthostatic vital signs.
[2022-08-26 13:41] VITALS: BP 120/76; PULSE 73; TEMP 98.7
--- NOTE | 2022-08-26 14:27 | CA ---
Transthoracic Echo Report Name: Inez Jaime Age: 62 Gender: F : 1960 Exam Date: 08/26/2022 08:55 Exam Location: [facility] Ht (in): 65 Wt (lb): 142 Ordering Physician: Bry Avalos DO Attending/Referring Phys: [place] Joyce Lara RDCS Procedure CPT: Indications: re: hypotension Cardiac Hx: Technical Quality: Contrast 1: Total Dose (mL): Contrast 2: Total Dose (mL): MEASUREMENTS (Male / Female) Normal Values DOPPLER TR Peak Velocity 250.1 cm/s TR Peak Gradient 25.0 mmHg Right Ventricular Systolic Press 30.0 mmHg FINDINGS Left Ventricle Left ventricular ejection fraction is estimated at 55%. Right Ventricle Normal right ventricular size and function. Right ventricular systolic pressure within normal limits. Right Atrium Left Atrium Mitral Valve Trace mitral regurgitation Aortic Valve Tricuspid Valve Pulmonic Valve Pericardium Aorta CONCLUSIONS Left ventricular ejection fraction 55% Trace mitral regurgitation No pericardial effusion Previewed by: Dr. Bry Avalos DO (Electronically Signed) Final Date: 26 August 2022 10:56
--- NOTE | 2022-08-27 13:27 | P.DS ---
Providers Date of admission: 08/22/22 11:58 Expected date of discharge: 08/26/22 Attending physician: Adan Honeycutt MD Consults: 08/22/22 11:58 Consult Physician Urgent Consulting Provider: Sandip Newton Consult Reason/Comments: Fractured fibula, fractured toe Do you want consulting provider notified?: Yes Consult Physician Urgent Consulting Provider: Vicente Burnham Consult Reason/Comments: Acute renal failure Do you want consulting provider notified?: Yes 08/24/22 08:58 Consult Physician Routine Consulting Provider: Theodore Edmonds Consult Reason/Comments: Syncopal episodes Do you want consulting provider notified?: Yes Primary care physician: Adan Honeycutt MD Hospital Course: Final Diagnoses: Acute renal failure with severe dehydration, improving Near-syncope, status post fall, sustaining right fibular fracture, conservative management Hypertension Hyperlipidemia Hypomagnesemia Metabolic acidosis, status post bicarb drip Anemia Hypokalemia, receiving supplementation Hospital course: This is a 62-year-old female admitted with multiple medical issues including near-syncope, status post fall, right fibular fracture, acute renal failure, electrolyte abnormalities, anemia and multiple other medical issues. Renal function continues to improve, BUN 13, creatinine 1.22. Status post bicarb drip, significant clinical improvement. Currently receiving potassium supplementation. Denies chest pain, palpitations or shortness of breath. Denies lightheadedness, dizziness or focal deficits. Patient will be discharged home today in stable condition with guarded prognosis, pending echo, cardiology and nephrology's final DC recommendations and clearance. Discussed with patient further workup including bone density to be arranged in clinic, en courage hydration, stabilizing weight/calorie neutral to calorie excess for healing. The impression and plan of care has been dictated as directed. : I performed a history and examination of this patient, discussed the same with the dictator. I agree with the dictator's note ,documented as a scribe. Any additional findings or plans will be noted. Patient Condition at Discharge: Stable Plan - Discharge Summary Discharge Rx Participant: Yes New Discharge Prescriptions: New Midodrine [ProAmatine] 5 mg PO AC-TID #30 tab HYDROcodone/APAP 5-325MG [[place] 5-325] 1 each PO Q6HR PRN #12 tab PRN Reason: Pain Continue Venlafaxine HCl [Effexor XR] 150 mg PO DAILY lamoTRIgine [LaMICtal] 200 mg PO HS Ergocalciferol [Vitamin D2 (1250 Mcg = 73324 Iu)] 1,250 mcg PO MO Simvastatin [Zocor] 20 mg PO HS QUEtiapine [SEROquel] 200 mg PO HS Cariprazine HCl [Vraylar] 1.5 mg PO DAILY Melatonin 3 mg PO HS Levothyroxine Sodium [Synthroid] 100 mcg PO DAILY clindamycin HCL [Cleocin] 300 mg PO TID Metoprolol Succinate (ER) [Toprol XL] 25 mg PO DAILY Chlorhexidine Gluconate [Peridex] 10 ml PO QID Discontinued lisinopriL [Zestril] 20 mg PO DAILY #30 tab Discharge Medication List Venlafaxine HCl [Effexor XR] 150 mg PO DAILY 04/02/14 [History] Cariprazine HCl [Vraylar] 1.5 mg PO DAILY 04/26/22 [History] Ergocalciferol [Vitamin D2 (1250 Mcg = 27057 Iu)] 1,250 mcg PO MO 04/26/22 [History] Melatonin 3 mg PO HS 04/26/22 [History] QUEtiapine [SEROquel] 200 mg PO HS 04/26/22 [History] Simvastatin [Zocor] 20 mg PO HS 04/26/22 [History] Levothyroxine Sodium [Synthroid] 100 mcg PO DAILY 04/27/22 [History] lamoTRIgine [LaMICtal] 200 mg PO HS 04/27/22 [History] Chlorhexidine Gluconate [Peridex] 10 ml PO QID 08/22/22 [History] Metoprolol Succinate (ER) [Toprol XL] 25 mg PO DAILY 08/22/22 [History] clindamycin HCL [Cleocin] 300 mg PO TID 08/22/22 [History] HYDROcodone/APAP 5-325MG [[place] 5-325] 1 each PO Q6HR PRN #12 tab 08/25/22 [Rx] Midodrine [ProAmatine] 5 mg PO AC-TID #30 tab 08/25/22 [Rx] Follow up Appointment(s)/Referral(s): Kirt Alcantar MD [STAFF PHYSICIAN] - 1 Week (Office will call you with your appointment.) Adan Honeycutt MD [Primary Care Provider] - 08/28/22 3:15 pm [facility], [NON-STAFF] - 1-2 Days ([facility] will call you to schedule your in home nursing visits. ) Sandip Newton DO [Doctor of Osteopathic Medicine] - 09/03/22 10:10 am Ambulatory/Diagnostic Orders: Basic Metabolic Panel [LAB.AMB] Location: None Selected Patient Instructions/Handouts: Leg Fracture (DC) Activity/Diet/Wound Care/Special Instructions: Nonweightbearing on the affected extremity. Make appointment prior to discharge with [facility]: 30 day event monitor at [place]. Discharge Disposition: HOME WITH HOME HEALTH SERVICES
== END 2022-08-26 14:27 | disposition home health service (06) | DRG 683 ==
LOC: EC 09:06 → 5NMEDONC 11:58 → 4SSUR 14:59
PROVIDERS: ADMIT Family Medicine; ATTEND Family Medicine
PROC: 2W3QX1Z Immobilization of Right Lower Leg using Splint (ICD-10-PCS; principal; 2022-08-22)
DX: N17.0 Acute kidney failure with tubular necrosis (principal); E87.20 Acidosis, unspecified; I95.9 Hypotension, unspecified; S82.831A Other fracture of upper and lower end of right fibula, initial encounter for closed fracture; D64.9 Anemia, unspecified; E78.5 Hyperlipidemia, unspecified; E03.9 Hypothyroidism, unspecified; F31.9 Bipolar disorder, unspecified; S92.911A Unspecified fracture of right toe(s), initial encounter for closed fracture; E86.0 Dehydration; I10 Essential (primary) hypertension; R55 Syncope and collapse; E83.42 Hypomagnesemia; E87.6 Hypokalemia; I07.1 Rheumatic tricuspid insufficiency; F41.9 Anxiety disorder, unspecified; R29.6 Repeated falls; Z79.890 Hormone replacement therapy; Z79.899 Other long term (current) drug therapy; Z87.891 Personal history of nicotine dependence; Z91.048 Other nonmedicinal substance allergy status; W01.0XXA Fall on same level from slipping, tripping and stumbling without subsequent striking against object, initial encounter; Y92.038 Other place in apartment as the place of occurrence of the external cause
CPT/HCPCS: 36415; 51798; 71045; 76770; 80048; 80053; 81001; 82728; 83540; 83550; 83735; 84484; 85025; 93005; 93308; 96360; 96361

== ENCOUNTER 2022-10-20 19:22 | Emergency (ER) | payer OTHER ==
[2022-10-20 19:36] VITALS: TEMP 97.8
[2022-10-20 20:19] LABS: Basophils # (A) 0.1 k/uL (0-0.2); Basophils % (A) 1 %; Eosinophils # (A) 0.3 k/uL (0-0.7); Eosinophils % (A) 3 %; HCT 37.2 % (34.0-46.0); HGB 12.6 gm/dL (11.4-16.0); Lymphocytes # (A) 2.3 k/uL (1.0-4.8); Lymphocytes % (A) 29 %; MCH 32.5 pg (25.0-35.0); MCHC 33.8 g/dL (31.0-37.0); MCV 96.3 fL (80.0-100.0); Mean Platelet Volume 7.8; Monocytes # (A) 0.5 k/uL (0-1.0); Monocytes % (A) 6 %; Neutrophils # (A) 4.7 k/uL (1.3-7.7); Neutrophils % (A) 60 %; Platelet Count 272 k/uL (150-450); RBC 3.86 m/uL (3.80-5.40); RDW 12.5 % (11.5-15.5); WBC 7.9 k/uL (3.8-10.6)
[2022-10-20 20:31] LABS: ALT 23 U/L (4-34); AST 29 U/L (14-36); African American GFR (CKD) >90 (>60 ml/min/1.73 sqM); Alkaline Phosphatase 103 U/L (38-126); Anion Gap 9 mmol/L; Blood Urea Nitrogen 13 mg/dL (7-17); Calcium 10.3 mg/dL (8.4-10.2); Carbon Dioxide 23 mmol/L (22-30); Chloride 105 mmol/L (98-107); Glucose 79 mg/dL (74-99); Magnesium 2.1 mg/dL (1.6-2.3); Non-African American GFR(CKD) 78 (>60 ml/min/1.73 sqM); Potassium 4.8 mmol/L (3.5-5.1); Sodium 137 mmol/L (137-145); Total Bilirubin 0.3 mg/dL (0.2-1.3); Total Protein 7.8 g/dL (6.3-8.2)
[2022-10-20 20:40] LABS: INR 0.9 (<1.2); Partial Thromboplastin Time 25.9 sec (22.0-30.0); Prothrombin Time 9.8 sec (9.0-12.0)
--- NOTE | 2022-10-20 20:40 | XR ---
EXAMINATION TYPE: XR chest 2V DATE OF EXAM: 10/20/2022 COMPARISON: 08/22/2022 HISTORY: Chest pain TECHNIQUE: 2 view FINDINGS: Heart is normal. Lungs are clear. Diaphragm is normal. Bony thorax is intact. IMPRESSION: Normal chest. No change.
--- NOTE | 2022-10-20 21:48 | ED ---
General Adult HPI - General Chief complaint: Chest Pain Stated complaint: Irregular BP,Chest pain Time Seen by Provider: 10/20/22 21:31 Source: patient Mode of arrival: ambulatory Limitations: no limitations - History of Present Illness Initial comments: This patient is 62-year-old woman who presents with complaint of having chest discomfort and also headache. She also noted that her blood pressure had been elevated. Patient states that she had her blood pressure medications changed a couple of days ago and that the symptoms came on after the medication change. Patient denies anginal symptoms, no diaphoresis, dyspnea, palpitations, lightheadedness or syncope. -: hour(s) Location: head, chest Radiation: non-radiation Quality: dull Consistency: now resolved Improves with: none Worsens with: none Associated Symptoms: denies other symptoms - Related Data Home Medications Medication Instructions Recorded Confirmed Venlafaxine HCl [Effexor XR] 150 mg PO DAILY 04/02/14 08/22/22 Cariprazine HCl [Vraylar] 1.5 mg PO DAILY 04/26/22 08/22/22 Ergocalciferol [Vitamin D2 (1250 1,250 mcg PO MO 04/26/22 08/22/22 Mcg = 84446 Iu)] Melatonin 3 mg PO HS 04/26/22 08/22/22 QUEtiapine [SEROquel] 200 mg PO HS 04/26/22 08/22/22 Simvastatin [Zocor] 20 mg PO HS 04/26/22 08/22/22 Levothyroxine Sodium [Synthroid] 100 mcg PO DAILY 04/27/22 08/22/22 lamoTRIgine [LaMICtal] 200 mg PO HS 04/27/22 08/22/22 Chlorhexidine Gluconate [Peridex] 10 ml PO QID 08/22/22 08/22/22 Metoprolol Succinate (ER) [Toprol 25 mg PO DAILY 08/22/22 08/22/22 XL] clindamycin HCL [Cleocin] 300 mg PO TID 08/22/22 08/22/22 Previous Rx's Medication Instructions Recorded HYDROcodone/APAP 5-325MG [[place] 1 each PO Q6HR PRN #12 tab 08/25/22 5-325] Midodrine [ProAmatine] 5 mg PO AC-TID #30 tab 08/25/22 Allergies Allergy/AdvReac Type Severity Reaction Status Date / Time lithium AdvReac Nausea Verified 10/20/22 19:36 Review of Systems ROS Statement: Those systems with pertinent positive or pertinent negative responses have been documented in the HPI. ROS Other: All systems not noted in ROS Statement are negative. Constitutional: Denies: fever, chills, weakness Eyes: Denies: vision change Respiratory: Denies: cough, dyspnea Cardiovascular: Reports: chest pain. Denies: palpitations, edema, syncope Gastrointestinal: Denies: abdominal pain, nausea, vomiting Genitourinary: Denies: dysuria, hematuria Musculoskeletal: Denies: back pain Skin: Denies: rash Neurological: Reports: headache. Denies: weakness, numbness, confusion Past Medical History Past Medical History: Hyperlipidemia, Hypertension, Thyroid Disorder Additional Past Medical History / Comment(s): Acute Kidney failure- due to low BP History of Any Multi-Drug Resistant Organisms: None Reported Past Surgical History: Tonsillectomy Past Psychological History: Bipolar Smoking Status: Former smoker Past Alcohol Use History: Occasional Past Drug Use History: None Reported General Exam Limitations: no limitations General appearance: alert, in no apparent distress Head exam: Present: atraumatic, normocephalic Eye exam: Present: normal appearance. Absent: scleral icterus, conjunctival injection Neck exam: Present: normal inspection Respiratory exam: Present: normal lung sounds bilaterally. Absent: respiratory distress, wheezes, rales, rhonchi, stridor Cardiovascular Exam: Present: regular rate, normal rhythm, normal heart sounds. Absent: systolic murmur, diastolic murmur, rubs, gallop GI/Abdominal exam: Present: soft. Absent: distended, tenderness, guarding, rebound, pulsatile mass Extremities exam: Present: normal inspection, normal capillary refill. Absent: pedal edema, calf tenderness Neurological exam: Present: alert Skin exam: Present: warm, dry, intact, normal color. Absent: rash Course Vital Signs 10/20/22 10/20/22 19:32 23:37 Temperature 97.8 F Pulse Rate 67 66 Respiratory 20 18 Rate Blood Pressure 148/89 121/80 O2 Sat by Pulse 100 99 Oximetry EKG Findings - EKG Results: EKG: interpreted by ERMMariusz, WNL, sinus rhythm (Rate 68 bpm), normal axis, normal QRS, normal ST/T, no acute changes Medical Decision Making - Lab Data Result diagrams: 10/20/22 19:48 10/20/22 19:48 Lab Results 10/20/22 10/20/22 10/20/22 Range/Units 19:48 19:48 19:48 WBC 7.9 (3.8-10.6) k/uL RBC 3.86 (3.80-5.40) m/uL Hgb 12.6 (11.4-16.0) gm/dL Hct 37.2 (34.0-46.0) % MCV 96.3 (80.0-100.0) fL MCH 32.5 (25.0-35.0) pg MCHC 33.8 (31.0-37.0) g/dL RDW 12.5 (11.5-15.5) % Plt Count 272 (150-450) k/uL MPV 7.8 Neutrophils % 60 % Lymphocytes % 29 % Monocytes % 6 % Eosinophils % 3 % Basophils % 1 % Neutrophils # 4.7 (1.3-7.7) k/uL Lymphocytes # 2.3 (1.0-4.8) k/uL Monocytes # 0.5 (0-1.0) k/uL Eosinophils # 0.3 (0-0.7) k/uL Basophils # 0.1 (0-0.2) k/uL PT 9.8 (9.0-12.0) sec INR 0.9 (<1.2) APTT 25.9 (22.0-30.0) sec Sodium 137 (137-145) mmol/L Potassium 4.8 (3.5-5.1) mmol/L Chloride 105 (98-107) mmol/L Carbon Dioxide 23 (22-30) mmol/L Anion Gap 9 mmol/L BUN 13 (7-17) mg/dL Creatinine 0.81 (0.52-1.04) mg/dL Est GFR (CKD-EPI)AfAm >90 (>60 ml/min/1.73 sqM) Est GFR (CKD-EPI)NonAf 78 (>60 ml/min/1.73 sqM) Glucose 79 (74-99) mg/dL Calcium 10.3 H (8.4-10.2) mg/dL Magnesium 2.1 (1.6-2.3) mg/dL Total Bilirubin 0.3 (0.2-1.3) mg/dL AST 29 (14-36) U/L ALT 23 (4-34) U/L Alkaline Phosphatase 103 (38-126) U/L Troponin I (0.000-0.034) ng/mL Total Protein 7.8 (6.3-8.2) g/dL Albumin 5.0 (3.5-5.0) g/dL 10/20/22 Range/Units 19:48 WBC (3.8-10.6) k/uL RBC (3.80-5.40) m/uL Hgb (11.4-16.0) gm/dL Hct (34.0-46.0) % MCV (80.0-100.0) fL MCH (25.0-35.0) pg MCHC (31.0-37.0) g/dL RDW (11.5-15.5) % Plt Count (150-450) k/uL MPV Neutrophils % % Lymphocytes % % Monocytes % % Eosinophils % % Basophils % % Neutrophils # (1.3-7.7) k/uL Lymphocytes # (1.0-4.8) k/uL Monocytes # (0-1.0) k/uL Eosinophils # (0-0.7) k/uL Basophils # (0-0.2) k/uL PT (9.0-12.0) sec INR (<1.2) APTT (22.0-30.0) sec Sodium (137-145) mmol/L Potassium (3.5-5.1) mmol/L Chloride (98-107) mmol/L Carbon Dioxide (22-30) mmol/L Anion Gap mmol/L BUN (7-17) mg/dL Creatinine (0.52-1.04) mg/dL Est GFR (CKD-EPI)AfAm (>60 ml/min/1.73 sqM) Est GFR (CKD-EPI)NonAf (>60 ml/min/1.73 sqM) Glucose (74-99) mg/dL Calcium (8.4-10.2) mg/dL Magnesium (1.6-2.3) mg/dL Total Bilirubin (0.2-1.3) mg/dL AST (14-36) U/L ALT (4-34) U/L Alkaline Phosphatase (38-126) U/L Troponin I <0.012 (0.000-0.034) ng/mL Total Protein (6.3-8.2) g/dL Albumin (3.5-5.0) g/dL Disposition Clinical Impression: Hypertension Disposition: HOME SELF-CARE Condition: Good Instructions (If sedation given, give patient instructions): Hypertension (ED) Is patient prescribed a controlled substance at d/c from ED?: No Referrals: Adan Honeycutt MD [Primary Care Provider] - 1-2 days
[2022-10-20 23:41] VITALS: BP 121/80; PULSE 66; RESP 18
== END 2022-10-20 23:37 | disposition home or self-care (01) ==
LOC: EC 19:22
DX: I10 Essential (primary) hypertension (principal); E78.5 Hyperlipidemia, unspecified; E07.9 Disorder of thyroid, unspecified; F31.9 Bipolar disorder, unspecified; Z87.891 Personal history of nicotine dependence; Z88.8 Allergy status to other drugs, medicaments and biological substances; Z79.899 Other long term (current) drug therapy; Z79.890 Hormone replacement therapy
CPT/HCPCS: 36415; 71046; 80053; 83735; 84484; 85025; 85610; 85730; 93005; 99285

== ENCOUNTER → 2023-03-03 | Outpatient (CLI) | payer OTHER ==
--- NOTE | 2023-03-03 11:57 | CA ---
Exercise Stress Test Report Name: Inez Jaime Exam Date: 03/03/2023 11:08 Exam Location: [facility] Stress Ht (in): 65 Wt (lb): 150 BSA: 1.75 Ordering Phys: Adan Honeycutt MD Referring Phys: ALEJANDRINA, Technologist: Mason Obando Age: 62 Gender: F : 1960 Procedure CPT: Indications: R07.9 I10 ICD-10 Codes: Patient History: CHEST PAIN, PALPITATIONS, HTN, ELEVATED CHOLESTEROL LEVELS, FAMILY HX OF HEART DISEASE, PRIOR SMO[employer]ER - QUIT 6 MOS (1 PPD X 40 YEARS) Medications: EFFEXOR, LAMICTAL, SEROQUEL, LISINOPRIL, ATORVASTATIN, LEVOTHYROXINE Meds past 24 hrs: Pretest Chest Pain: STRESS TEST Garett Protocol Exercise Duration (min:sec): 06:[address] Depressions (mm): Angina Score: [place] Score: Resting HR (bpm): 80 Peak HR (bpm): 141 Resting BP (mmHg): 126 / 86 Peak BP (mmHg): 205 / 94 MPHR: 157 Target HR: 133 % MPHR: 90 METS: 7.1 Total Dose: Peak Dose: Atropine: Double Product: 23528 BP Response: Stress Termination: TARGET HR REACHED/MAX EXERTION Stress Symptoms: DIFFICULTY IN BREATHING Stress Summary: ECG ANALYSIS Resting ECG: Normal sinus rhythm normal axis normal intervals Stress ECG: Patient exercised on Garett protocol for 6 minutes achieving 85% of predicted maximal heart rate without chest pain or diagnostic ST segment depression CONCLUSIONS Average exercise tolerance Negative stress test by EKG criteria Dr. Alejandro Santiago MD (Electronically Signed) Final Date: 03 March 2023 11:56
== END | disposition home or self-care (01) ==
LOC: RADNMMAIN 10:45
PROVIDERS: ATTEND Family Medicine
DX: R07.9 Chest pain, unspecified (principal); I10 Essential (primary) hypertension
CPT/HCPCS: 93017

== ENCOUNTER 2023-04-03 20:12 | Emergency (ER) | payer OTHER ==
[2023-04-03 20:37] VITALS: TEMP 98.2
[2023-04-03] MEDS ORDERED: SODIUM CHLORIDE 0.9% 500 ML 500 ML IV STA (21:20)
--- NOTE | 2023-04-03 21:23 | ED ---
Dizziness HPI - General Chief Complaint: Dizziness Stated Complaint: hypertension; light headedness Time Seen by Provider: 04/03/23 21:09 Source: patient, RN notes reviewed, old records reviewed Mode of arrival: ambulatory Limitations: no limitations - History of Present Illness Initial Comments: This is a 62-year-old female to the emergency department for evaluation. Patient presents today for evaluation regards to weakness lightheadedness dizziness and elevated blood pressure, patient started to feel unwell just prior to checking in the emergency department. She took her blood pressure no which was significantly elevated. Currently going through evaluation with her primary care for blood pressure and heart issues has had recent stress test echo as well as carotid Dopplers which have all proven to be normal. Patient currently feels improved resting here in the emergency department with no chest pain or shortness of breath MD Complaint: dizziness, lightheadedness -: hour(s) Timing: gradual onset Description: sense of movement, "room spinning", lightheadedness, off-balance History of Same: Yes History of Trauma: No Severity: moderate Improves With: nothing, remaining still Worsens With: nothing Associated Symptoms: denies other symptoms - Related Data Home Medications Medication Instructions Recorded Confirmed Venlafaxine HCl [Effexor XR] 150 mg PO DAILY 04/02/14 08/22/22 Cariprazine HCl [Vraylar] 1.5 mg PO DAILY 04/26/22 08/22/22 Ergocalciferol [Vitamin D2 (1250 1,250 mcg PO MO 04/26/22 08/22/22 Mcg = 89812 Iu)] Melatonin 3 mg PO HS 04/26/22 08/22/22 QUEtiapine [SEROquel] 200 mg PO HS 04/26/22 08/22/22 Simvastatin [Zocor] 20 mg PO HS 04/26/22 08/22/22 Levothyroxine Sodium [Synthroid] 100 mcg PO DAILY 04/27/22 08/22/22 lamoTRIgine [LaMICtal] 200 mg PO HS 04/27/22 08/22/22 Chlorhexidine Gluconate [Peridex] 10 ml PO QID 08/22/22 08/22/22 Metoprolol Succinate (ER) [Toprol 25 mg PO DAILY 08/22/22 08/22/22 XL] clindamycin HCL [Cleocin] 300 mg PO TID 08/22/22 08/22/22 Previous Rx's Medication Instructions Recorded HYDROcodone/APAP 5-325MG [[place] 1 each PO Q6HR PRN #12 tab 08/25/22 5-325] Midodrine [ProAmatine] 5 mg PO AC-TID #30 tab 08/25/22 Allergies Allergy/AdvReac Type Severity Reaction Status Date / Time lithium AdvReac Nausea Verified 04/03/23 20:37 Review of Systems ROS Statement: Those systems with pertinent positive or pertinent negative responses have been documented in the HPI. ROS Other: All systems not noted in ROS Statement are negative. Past Medical History Past Medical History: Hyperlipidemia, Hypertension, Thyroid Disorder Additional Past Medical History / Comment(s): Acute Kidney failure- due to low BP History of Any Multi-Drug Resistant Organisms: None Reported Past Surgical History: Tonsillectomy Past Psychological History: Bipolar Smoking Status: Former smoker Past Alcohol Use History: Occasional Past Drug Use History: None Reported General Exam Limitations: no limitations General appearance: alert, in no apparent distress Head exam: Present: atraumatic, normocephalic, normal inspection Eye exam: Present: normal appearance, PERRL, EOMI. Absent: scleral icterus, conjunctival injection, periorbital swelling ENT exam: Present: normal exam, mucous membranes moist Neck exam: Present: normal inspection. Absent: tenderness, meningismus, lympha denopathy Respiratory exam: Present: normal lung sounds bilaterally. Absent: respiratory distress, wheezes, rales, rhonchi, stridor Cardiovascular Exam: Present: regular rate, normal rhythm, normal heart sounds. Absent: systolic murmur, diastolic murmur, rubs, gallop, clicks GI/Abdominal exam: Present: soft, normal bowel sounds. Absent: distended, tenderness, guarding, rebound, rigid Extremities exam: Present: normal inspection, full ROM, normal capillary refill. Absent: tenderness, pedal edema, joint swelling, calf tenderness Back exam: Present: normal inspection Neurological exam: Present: alert, oriented X3, CN II-XII intact Psychiatric exam: Present: normal affect, normal mood Skin exam: Present: warm, dry, intact, normal color. Absent: rash Course Vital Signs 04/03/23 04/03/23 20:35 23:36 Temperature 98.2 F Pulse Rate 75 70 Respiratory 20 16 Rate Blood Pressure 157/97 152/101 O2 Sat by Pulse 97 94 L Oximetry - Reevaluation(s) Reevaluation #1: 04/03/23 22:40 Medical record is reviewed Reevaluation #2: 04/03/23 22:40 Patient informed results questions answered Reevaluation #3: 04/03/23 22:41 Patient symptoms remained improved Reevaluation #4: 04/03/23 22:41 Was pt. sent in by a medical professional or institution? @ -no Did you speak to anyone other than the patient for history? @ -no Did you review nursing and triage notes? @ -agree Were old charts reviewed? @ -no Differential Diagnosis? @ -prior EKG interpreted by me (3pts min.)? @ -yes X-rays interpreted by me (1pt min.)? @ -no CT interpreted by me (1pt min.)? @ -no U/S interpreted by me (1pt. min.)? @ -no What testing was considered but not performed? (CT, X-rays, U/S, labs)? Why? @ -no What meds were considered but not given? Why? @ -no Did you discuss the management of the patient with other professionals? @ -no Did you reconcile home meds? @ -no Was smoking cessation discussed for >3mins.? @ -no Was critical care preformed (if so, how long)? @ -no Were there social determinants of health that impacted care today? How? (Homelessness, low income, unemployed, alcoholism, drug addiction, bonilla sportation, low edu. Level, literacy, decrease access to med. care, longterm, rehab)? @ -no Was there de-escalation of care discussed even if they declined? (Discuss DNR or withdrawal of care, Hospice)? @ -no What co-morbidities impacted this encounter? (DM, HTN, Smoking, COPD, CAD, Cancer, CVA, Hep., AIDS, mental health diagnosis, sleep apnea, morbid obesity)? @ -none Was patient admitted / discharged? @ -This is a 62-year-old female to the emergency department for evaluation. Patient has no high blood pressure occasional chest pain and dizziness. The symptoms are improving here in the ER blood pressure improved here. Recent significant evaluation regards to cause of symptoms to cardiology and patient will continue follow-up Discharged Undiagnosed new problem with uncertain prognosis? @ -no Drug Therapy requiring intensive monitoring for toxicity (Heparin, Nitro, Insulin, Cardizem)? @ -no Were any procedures done? @ -no Diagnosis/symptom? @ -Acute chest pain rule out ACS hypertension Acute, or Chronic, or Acute on Chronic? @ -Acute Uncomplicated (without systemic symptoms) or Complicated (systemic symptoms)? @ -uncomplicated Side effects of treatment? @ -no Exacerbation, Progression, or Severe Exacerbation] @ -no Poses a threat to life or bodily function? @ -Yes if related to ACS Reevaluation #5: 04/03/23 22:41 Differential Chest Pain: Stable Angina, Unstable Angina, STEMI, NSTEMI Aortic Dissection, Pneumothorax, Musculoskeletal, Esophageal Spasm GERD, Cholecystitis, Pancreatitis, Zoster, this is not meant to be an all-inclusive list. \\ EKG Findings - EKG Comments: EKG Findings:: EKG is sinus 70 NV 204 QRS 93 QTC 387 - EKG Results: EKG: interpreted by ANGELA Medical Decision Making - Medical Decision Making 62 female DF for evaluation of elevated blood pressure lightheadedness dizziness and some chest pain. - Lab Data Result diagrams: 04/03/23 21:50 04/03/23 21:50 Lab Results 04/03/23 04/03/23 04/03/23 Range/Units 21:50 21:50 21:50 WBC 6.0 (3.8-10.6) k/uL RBC 3.69 L (3.80-5.40) m/uL Hgb 12.3 (11.4-16.0) gm/dL Hct 34.7 (34.0-46.0) % MCV 94.1 (80.0-100.0) fL MCH 33.4 (25.0-35.0) pg MCHC 35.5 (31.0-37.0) g/dL RDW 12.0 (11.5-15.5) % Plt Count 281 (150-450) k/uL MPV 6.9 Neutrophils % 51 % Lymphocytes % 34 % Monocytes % 7 % Eosinophils % 5 % Basophils % 1 % Neutrophils # 3.0 (1.3-7.7) k/uL Lymphocytes # 2.1 (1.0-4.8) k/uL Monocytes # 0.4 (0-1.0) k/uL Eosinophils # 0.3 (0-0.7) k/uL Basophils # 0.0 (0-0.2) k/uL PT 10.0 (9.0-12.0) sec INR 0.9 (<1.2) APTT 25.9 (22.0-30.0) sec D-Dimer 0.31 (<0.60) mg/L FEU Sodium 128 L (137-145) mmol/L Potassium 4.8 (3.5-5.1) mmol/L Chloride 96 L (98-107) mmol/L Carbon Dioxide 21 L (22-30) mmol/L Anion Gap 11 mmol/L BUN 13 (7-17) mg/dL Creatinine 0.70 (0.52-1.04) mg/dL Est GFR (CKD-EPI)AfAm >90 (>60 ml/min/1.73 sqM) Est GFR (CKD-EPI)NonAf >90 (>60 ml/min/1.73 sqM) Glucose 82 (74-99) mg/dL Calcium 10.1 (8.4-10.2) mg/dL Phosphorus 3.3 (2.5-4.5) mg/dL Magnesium 1.8 (1.6-2.3) mg/dL Total Bilirubin 0.5 (0.2-1.3) mg/dL AST 33 (14-36) U/L ALT 27 (4-34) U/L Alkaline Phosphatase 101 (38-126) U/L Troponin I (0.000-0.034) ng/mL NT-Pro-B Natriuret Pep pg/mL Total Protein 7.2 (6.3-8.2) g/dL Albumin 4.5 (3.5-5.0) g/dL 04/03/23 04/03/23 Range/Units 21:50 21:50 WBC (3.8-10.6) k/uL RBC (3.80-5.40) m/uL Hgb (11.4-16.0) gm/dL Hct (34.0-46.0) % MCV (80.0-100.0) fL MCH (25.0-35.0) pg MCHC (31.0-37.0) g/dL RDW (11.5-15.5) % Plt Count (150-450) k/uL MPV Neutrophils % % Lymphocytes % % Monocytes % % Eosinophils % % Basophils % % Neutrophils # (1.3-7.7) k/uL Lymphocytes # (1.0-4.8) k/uL Monocytes # (0-1.0) k/uL Eosinophils # (0-0.7) k/uL Basophils # (0-0.2) k/uL PT (9.0-12.0) sec INR (<1.2) APTT (22.0-30.0) sec D-Dimer (<0.60) mg/L FEU Sodium (137-145) mmol/L Potassium (3.5-5.1) mmol/L Chloride (98-107) mmol/L Carbon Dioxide (22-30) mmol/L Anion Gap mmol/L BUN (7-17) mg/dL Creatinine (0.52-1.04) mg/dL Est GFR (CKD-EPI)AfAm (>60 ml/min/1.73 sqM) Est GFR (CKD-EPI)NonAf (>60 ml/min/1.73 sqM) Glucose (74-99) mg/dL Calcium (8.4-10.2) mg/dL Phosphorus (2.5-4.5) mg/dL Magnesium (1.6-2.3) mg/dL Total Bilirubin (0.2-1.3) mg/dL AST (14-36) U/L ALT (4-34) U/L Alkaline Phosphatase (38-126) U/L Troponin I <0.012 (0.000-0.034) ng/mL NT-Pro-B Natriuret Pep 103 pg/mL Total Protein (6.3-8.2) g/dL Albumin (3.5-5.0) g/dL - EKG Data -: EKG Interpreted by Me Disposition Clinical Impression: Chest pain, Dehydration, Dizziness, Hyponatremia, Hypertension Disposition: HOME SELF-CARE Condition: Good Instructions (If sedation given, give patient instructions): Hyponatremia (ED), Hypertension (ED), Dizziness (ED) Is patient prescribed a controlled substance at d/c from ED?: No Referrals: Adan Honeycutt MD [Primary Care Provider] - 1-2 days
[2023-04-03 22:42] LABS: Basophils % (A) 1 %; Eosinophils # (A) 0.3 k/uL (0-0.7); Eosinophils % (A) 5 %; HCT 34.7 % (34.0-46.0); HGB 12.3 gm/dL (11.4-16.0); Lymphocytes # (A) 2.1 k/uL (1.0-4.8); Lymphocytes % (A) 34 %; MCH 33.4 pg (25.0-35.0); MCHC 35.5 g/dL (31.0-37.0); MCV 94.1 fL (80.0-100.0); Mean Platelet Volume 6.9; Monocytes # (A) 0.4 k/uL (0-1.0); Monocytes % (A) 7 %; Neutrophils % (A) 51 %; Platelet Count 281 k/uL (150-450); RBC 3.69 m/uL (3.80-5.40)
[2023-04-03 22:54] LABS: ALT 27 U/L (4-34); AST 33 U/L (14-36); African American GFR (CKD) >90 (>60 ml/min/1.73 sqM); Albumin 4.5 g/dL (3.5-5.0); Alkaline Phosphatase 101 U/L (38-126); Anion Gap 11 mmol/L; Blood Urea Nitrogen 13 mg/dL (7-17); Calcium 10.1 mg/dL (8.4-10.2); Carbon Dioxide 21 mmol/L (22-30); Chloride 96 mmol/L (98-107); Glucose 82 mg/dL (74-99); Magnesium 1.8 mg/dL (1.6-2.3); Non-African American GFR(CKD) >90 (>60 ml/min/1.73 sqM); Phosphorus 3.3 mg/dL (2.5-4.5); Potassium 4.8 mmol/L (3.5-5.1); Sodium 128 mmol/L (137-145); Total Bilirubin 0.5 mg/dL (0.2-1.3); Total Protein 7.2 g/dL (6.3-8.2)
[2023-04-03] MEDS ORDERED: SODIUM CHLORIDE 0.9% 1,000 ML IV STA (22:55)
[2023-04-03 22:57] LABS: INR 0.9 (<1.2); Partial Thromboplastin Time 25.9 sec (22.0-30.0)
[2023-04-04 00:07] VITALS: BP 152/101; PULSE 70; RESP 16
== END 2023-04-03 23:36 | disposition home or self-care (01) ==
LOC: EC 20:12
DX: R07.89 Other chest pain (principal); R42 Dizziness and giddiness; E86.0 Dehydration; E87.1 Hypo-osmolality and hyponatremia; I10 Essential (primary) hypertension; E78.5 Hyperlipidemia, unspecified; E07.9 Disorder of thyroid, unspecified; Z79.890 Hormone replacement therapy; Z79.899 Other long term (current) drug therapy; Z88.8 Allergy status to other drugs, medicaments and biological substances; Z87.891 Personal history of nicotine dependence
CPT/HCPCS: 36415; 80053; 83735; 83880; 84100; 84484; 85025; 85379; 85610; 85730; 93005; 96360; 99284

== ENCOUNTER → 2023-05-26 | Outpatient (CLI) | payer OTHER ==
--- NOTE | 2023-05-26 11:40 | P.SLEEP ---
History of Present Illness DATE: 05/26/2023 CONSULTATION/NEW PATIENT EVALUATION HISTORY OF PRESENT ILLNESS/SLEEP-WAKE EVALUATION: 62-year-old lady had been evaluated in the sleep center for possible obstructive sleep apnea hypopnea syndrome. Patient had sleep study about 30 years ago. At that time she was found to have obstructive sleep apnea hypopnea syndrome. Patient was started on treatment with CPAP but was not able to use CPAP therapy. SLEEP SCHEDULE: Usually sleep schedule from 10 PM to 7 AM basically 7 days a week. FALLING ASLEEP: No problems with falling asleep, no TV in bedroom. DURING SLEEP: Patient usually sleeps on the side position with loud snoring and awakenings from sleep one time with nocturia. No history of hypnogogical hallucinations, sleep paralysis, or cataplexy. Positive history of restless leg symptoms DURING THE DAY/WAKE STATE: In the morning patient wake up tired, has problems with attention, concentration, memory problems and depression. Marshall sleepiness scale is increased to 10. Patient takes 1 nap at noontime. PAST MEDICAL HISTORY: Hypertension, bipolar, hypothyroidism. PAST SURGICAL HISTORY: Tonsillectomy. MEDICATIONS: Effexor, Lamictal, Seroquel, lisinopril, atorvastatin, levothyroxine, melatonin. SOCIAL HISTORY: Positive history of smoking 35 pack years, quit in August 2022, alcohol consumption none. FAMILY HISTORY: History of stroke in several family members. REVIEW OF SYSTEMS: Snoring, awakenings from sleep, sleepiness during the day. No fevers. No double vision. No recent chest pain. No shortness of breath. No abdominal pain. No bleeding episodes. No blood in urine. No seizure episodes. PHYSICAL EXAMINATION: GENERAL: A pleasant patient without any distress. VITAL SIGNS: BP 107/72 , HR 79 , RR 12 , weight 162.4 pounds, height 5 foot 3 inches, body mass index 28.6 . HEENT: PERRLA, EOMI. Evaluation of oropharynx showed tongue protrudes midline, low position of soft palate Mallampati 4. NECK: Supple. No JVD. Thyroid is not palpable. 15 inches in circumference. LUNGS: Clear to percussion and to auscultation. Good air exchange. No wheezing or rhonchi. HEART: S1, S2 regular. No murmurs, gallops or rubs. ABDOMEN: Soft and nontender. Bowel sounds are present. No organomegaly appreciated. EXTREMITIES: No clubbing or cyanosis. ASSEMBLY RIVETER: Awake, alert, and oriented x3. Cranial nerves 2 to 7 intact. There is no fasciculation or atrophy noted. No focal deficits observed. ASSESSMENT: 1. Loud snoring, awakenings from sleep, extremely low position of soft palate Mallampati 4, sleepiness by Marshall Sleepiness Scale of 10, history of obstructive sleep apnea in the past. Obstructive sleep apnea hypopnea syndrome. 2. Hypertension. 3. Bipolar disorder. 4. Hypothyroidism. 5 hyperlipidemia. 6 . Status post tonsillectomy. 7. Restless leg symptoms. PLAN: 1. Polysomnography for evaluation of patient's breathing during sleep. 2. CPAP/BiPAP titration if sleep study confirms obstructive sleep apnea- hypopnea syndrome. 3. Preferable position during sleep on the side. 4. No driving if patient feels any sleepiness. Patient is aware of civil and criminal liability for unsafe driving. 5. Sleep hygiene with regular sleep time for at least 7.5-8 hours. 6. Watching weight. Thank you very much for referring this patient for consultation. Sincerely, Guzman Byers MD, PhD, FAASM. Diplomat of [place] [employer], Sleep Medicine Board by [place] [employer] [place] [employer] Purchasing Director of [facility] [place] Past Medical History Past Medical History: Hypertension Additional Past Medical History / Comment(s): Acute Kidney failure- due to low BP History of Any Multi-Drug Resistant Organisms: None Reported Past Surgical History: Tonsillectomy Past Psychological History: Bipolar Smoking Status: Former smoker Past Alcohol Use History: Occasional Past Drug Use History: None Reported Medications and Allergies Home Medications Medication Instructions Recorded Confirmed Type Venlafaxine HCl [Effexor XR] 150 mg PO DAILY 04/02/14 08/22/22 History Cariprazine HCl [Vraylar] 1.5 mg PO DAILY 04/26/22 08/22/22 History Ergocalciferol [Vitamin D2 (1250 1,250 mcg PO MO 04/26/22 08/22/22 History Mcg = [id number] Iu)] Melatonin 3 mg PO HS 04/26/22 08/22/22 History QUEtiapine [SEROquel] 200 mg PO HS 04/26/22 08/22/22 History Simvastatin [Zocor] 20 mg PO HS 04/26/22 08/22/22 History Levothyroxine Sodium [Synthroid] 100 mcg PO DAILY 04/27/22 08/22/22 History lamoTRIgine [LaMICtal] 200 mg PO HS 04/27/22 08/22/22 History Chlorhexidine Gluconate [Peridex] 10 ml PO QID 08/22/22 08/22/22 History Metoprolol Succinate (ER) [Toprol 25 mg PO DAILY 08/22/22 08/22/22 History XL] clindamycin HCL [Cleocin] 300 mg PO TID 08/22/22 08/22/22 History HYDROcodone/APAP 5-325MG [[place] 1 each PO Q6HR PRN #12 tab 08/25/22 Rx 5-325] Midodrine [ProAmatine] 5 mg PO AC-TID #30 tab 08/25/22 Rx Allergies Allergy/AdvReac Type Severity Reaction Status Date / Time lithium AdvReac Nausea Verified 04/03/23 20:37 Sleep Note - Sleep Note Sleep Note: Temperature: Pulse Rate: Respiratory Rate: Blood Pressure: SpO2: Height: Weight: BMI: Neck Circumference:
== END ==
LOC: 3 N SLEEP 10:33
PROVIDERS: ATTEND Internal Medicine
DX: G47.33 Obstructive sleep apnea (adult) (pediatric) (principal); I10 Essential (primary) hypertension; E03.9 Hypothyroidism, unspecified; Z98.890 Other specified postprocedural states; G25.81 Restless legs syndrome; E78.5 Hyperlipidemia, unspecified; Z99.89 Dependence on other enabling machines and devices; F31.9 Bipolar disorder, unspecified; F17.200 Nicotine dependence, unspecified, uncomplicated; Z88.8 Allergy status to other drugs, medicaments and biological substances
CPT/HCPCS: 99211

== ENCOUNTER → 2023-05-28 | Outpatient (CLI) | payer OTHER ==
--- NOTE | 2023-05-31 09:00 | MM ---
Reason for Exam: Screening (asymptomatic). Last mammogram was performed 1 year(s) and 1 month(s) ago. Patient History: Menarche at age 11. First Full-Term at age 23. Postmenopausal. Cyst Aspiration on the Right side. Excisional Biopsy on the Right side. Risk Values: [place] 5 year model risk: 1.7%. NCI Lifetime model risk: 7.1%. Prior Study Comparison: 02/26/2021 Bilateral MG screening mammo w CAD - 2, [facility]. 04/28/2022 Bilateral MG screening mammo w CAD, [facility]. 05/07/2022 Right MG 3D work up w/cad RT, [facility]. Tissue Density: There are scattered fibroglandular densities. Findings: Analyzed By CAD. There is no suspicious group of microcalcifications or new suspicious mass in either breast. Overall Assessment: Negative, BI-RAD 1 Management: Screening Mammogram of both breasts in [address] [facility] will attempt to contact patient to return for supplemental views and ultrasound if indicated. Patient should continue monthly self-breast exams. A clinical breast exam by your physician is recommended on an annual basis. This exam should not preclude additional follow-up of suspicious palpable abnormalities. Note on [place] scores and lifetime risk: 1. A [place] score greater than 3% is considered moderate risk. If this is the case, consider specialist referral to assess eligibility for a risk reducing agent. 2. If overall lifetime risk for the development of breast cancer is 20% or higher, the patient may qualify for future screening with alternating mammogram and breast MRI. Electronically signed and approved by: Eric Newby DO
== END | disposition home or self-care (01) ==
LOC: RADMAMWWP 07:59
PROVIDERS: ATTEND Family Medicine
DX: Z12.31 Encounter for screening mammogram for malignant neoplasm of breast (principal); Z78.0 Asymptomatic menopausal state
CPT/HCPCS: 77063; 77067

== ENCOUNTER 2023-07-01 08:54 | Observation (INO) | payer OTHER ==
[2023-07-01] MEDS ORDERED: NITROGLYCERIN OINT 1 INCH/GM PACKET TOPICAL STA (09:34)
[2023-07-01] MEDS ORDERED: ASPIRIN 81 MG PO STA (09:34)
--- NOTE | 2023-07-01 09:37 | ED ---
General Adult HPI - General Chief complaint: Chest Pain Stated complaint: chest pain Time Seen by Provider: 07/01/23 08:59 Source: patient, RN notes reviewed Mode of arrival: ambulatory Limitations: no limitations - History of Present Illness Initial comments: Patient is a pleasant 62-year-old female presenting to the emergency department with concern for chest discomfort. Onset of symptoms was around 2-3 hours ago. Discomfort is sharp left chest/breast. Discomfort does radiate towards the back. Discomfort is minimal or resolved at this time. Discomfort has been waxing and waning and is up to 8/10 at times. No history of similar symptoms previously. No associated dyspnea. - Related Data Home Medications Medication Instructions Recorded Confirmed Venlafaxine HCl [Effexor XR] 150 mg PO DAILY 04/02/14 08/22/22 Cariprazine HCl [Vraylar] 1.5 mg PO DAILY 04/26/22 08/22/22 Ergocalciferol [Vitamin D2 (1250 1,250 mcg PO MO 04/26/22 08/22/22 Mcg = 56229 Iu)] Melatonin 3 mg PO HS 04/26/22 08/22/22 QUEtiapine [SEROquel] 200 mg PO HS 04/26/22 08/22/22 Simvastatin [Zocor] 20 mg PO HS 04/26/22 08/22/22 Levothyroxine Sodium [Synthroid] 100 mcg PO DAILY 04/27/22 08/22/22 lamoTRIgine [LaMICtal] 200 mg PO HS 04/27/22 08/22/22 Chlorhexidine Gluconate [Peridex] 10 ml PO QID 08/22/22 08/22/22 Metoprolol Succinate (ER) [Toprol 25 mg PO DAILY 08/22/22 08/22/22 XL] clindamycin HCL [Cleocin] 300 mg PO TID 08/22/22 08/22/22 Previous Rx's Medication Instructions Recorded HYDROcodone/APAP 5-325MG [Bertha 1 each PO Q6HR PRN #12 tab 08/25/22 5-325] Midodrine [ProAmatine] 5 mg PO AC-TID #30 tab 08/25/22 Allergies Allergy/AdvReac Type Severity Reaction Status Date / Time lithium AdvReac Nausea Verified 07/01/23 08:58 Review of Systems ROS Statement: Those systems with pertinent positive or pertinent negative responses have been documented in the HPI. ROS Other: All systems not noted in ROS Statement are negative. Constitutional: Denies: chills Eyes: Denies: eye pain ENT: Denies: ear pain Respiratory: Denies: cough Cardiovascular: Reports: as per HPI, chest pain Endocrine: Denies: fatigue Gastrointestinal: Denies: abdominal pain Past Medical History Past Medical History: Hyperlipidemia, Hypertension, Thyroid Disorder Additional Past Medical History / Comment(s): Acute Kidney failure- due to low BP History of Any Multi-Drug Resistant Organisms: None Reported Past Surgical History: Tonsillectomy Past Psychological History: Bipolar Smoking Status: Former smoker Past Alcohol Use History: Occasional Past Drug Use History: None Reported General Exam Limitations: no limitations General appearance: alert, in no apparent distress Head exam: Present: normocephalic Eye exam: Present: normal appearance Neck exam: Present: normal inspection Respiratory exam: Present: normal lung sounds bilaterally. Absent: chest wall tenderness Cardiovascular Exam: Present: regular rate, normal rhythm Expanded Peripheral pulses: 2+: Radial (R), Radial (L), Dorsalis Pedis (R), Dorsalis Pedis (L) GI/Abdominal exam: Present: soft. Absent: tenderness Extremities exam: Present: normal inspection. Absent: pedal edema, calf tenderness Neurological exam: Present: alert Psychiatric exam: Present: normal affect, normal mood Skin exam: Present: normal color Course Vital Signs 07/01/23 07/01/23 07/01/23 08:55 09:58 11:00 Temperature 98.7 F Pulse Rate 82 78 82 Respiratory 20 18 18 Rate Blood Pressure 133/86 114/85 109/76 O2 Sat by Pulse 99 97 95 Oximetry EKG Findings - EKG Results: EKG: interpreted by ERMD, sinus rhythm, normal axis, normal QRS, normal ST/T Medical Decision Making - Medical Decision Making Was pt. sent in by a medical professional or institution (, PA, SCIENCE SPECIALIST, urgent care, hospital, or group home...) When possible be specific @ -No Did you speak to anyone other than the patient for history (EMS, parent, family, police, friend...)? What history was obtained from this source @ -No Did you review nursing and triage notes (agree or disagree)? Why? @ -I reviewed and agree with nursing and triage notes Were old charts reviewed (outside hosp., previous admission, EMS record, old EKG, old radiological studies, urgent care reports/EKG's, group home records)? Report findings @ -No old charts were reviewed Differential Diagnosis (chest pain, altered mental status, abdominal pain women, abdominal pain men, vaginal bleeding, weakness, fever, dyspnea, syncope, headache, dizziness, GI bleed, back pain, seizure, CVA, palpatations, mental health, musculoskeletal)? @ -Differential Chest Pain: Stable Angina, Unstable Angina, STEMI, NSTEMI Aortic Dissection, Pneumothorax, Musculoskeletal, Esophageal Spasm GERD, Cholecystitis, Pancreatitis, Zoster, this is not meant to be an all-inclusive list. EKG interpreted by me (3pts min.). @ -As above X-rays interpreted by me (1pt min.). @ -Chest x-ray shows no acute process CT interpreted by me (1pt min.). @ -None done U/S interpreted by me (1pt. min.). @ -None done What testing was considered but not performed or refused? (CT, X-rays, U/S, labs)? Why? @ -None What meds were considered but not given or refused? Why? @ -None Did you discuss the management of the patient with other professionals (professionals i.e. , PA, SCIENCE SPECIALIST, lab, RT, psych nurse, forensic social worker, electronic components assembler, teacher, chief quality officer, immigration case manager)? Give summary @ -Case was discussed with Dr. Bean, who will admit. Was smoking cessation discussed for >3mins.? @ -No Was critical care preformed (if so, how long)? @ -No Were there social determinants of health that impacted care today? How? (Homelessness, low income, unemployed, alcoholism, drug addiction, transportation, low edu. Level, literacy, decrease access to med. care, usp, rehab)? @ -No Was there de-escalation of care discussed even if they declined (Discuss DNR or withdrawal of care, Hospice)? DNR status @ -No What co-morbidities impacted this encounter? (DM, HTN, Smoking, COPD, CAD, Cancer, CVA, ARF, Chemo, Hep., AIDS, mental health diagnosis, sleep apnea, morbid obesity)? @ -None Was patient admitted / discharged? Hospital course, mention meds given and route, prescriptions, significant lab abnormalities, going to OR and other pertinent info. @ -8 reevaluated and resting comfortably in bed. Patient is symptom-free at this time. Patient reevaluated and updated. Patient will be admitted with cardiac consult. Admission orders are in. Undiagnosed new problem with uncertain prognosis? @ -No Drug Therapy requiring intensive monitoring for toxicity (Heparin, Nitro, Insulin, Cardizem)? @ -No Were any procedures done? @ -No Diagnosis/symptom? @ -Chest pain Acute, or Chronic, or Acute on Chronic? @ -Acute Uncomplicated (without systemic symptoms) or Complicated (systemic symptoms)? @ -default Side effects of treatment? @ -No Exacerbation, Progression, or Severe Exacerbation? @ -No Poses a threat to life or bodily function? How? (Chest pain, [place], [place], pneumonia, PE, COPD, DKA, ARF, appy, cholecystitis, CVA, Diverticulitis, Homicidal, Suicidal, threat to staff... and all critical care pts) @ -No - Lab Data Result diagrams: 07/01/23 09:44 07/01/23 09:44 Lab Results 07/01/23 07/01/23 07/01/23 Range/Units 09:44 09:44 09:44 WBC 7.9 (3.8-10.6) k/uL RBC 3.18 L (3.80-5.40) m/uL Hgb 10.5 L (11.4-16.0) gm/dL Hct 30.4 L (34.0-46.0) % MCV 95.4 (80.0-100.0) fL MCH 32.9 (25.0-35.0) pg MCHC 34.5 (31.0-37.0) g/dL RDW 12.4 (11.5-15.5) % Plt Count 310 (150-450) k/uL MPV 7.4 Neutrophils % 47 % Lymphocytes % 36 % Monocytes % 8 % Eosinophils % 6 % Basophils % 1 % Neutrophils # 3.8 (1.3-7.7) k/uL Lymphocytes # 2.9 (1.0-4.8) k/uL Monocytes # 0.6 (0-1.0) k/uL Eosinophils # 0.4 (0-0.7) k/uL Basophils # 0.0 (0-0.2) k/uL PT 9.7 (9.0-12.0) sec INR 0.9 (<1.2) APTT 24.2 (22.0-30.0) sec D-Dimer 0.35 (<0.60) mg/L FEU Sodium 135 L (137-145) mmol/L Potassium 4.6 (3.5-5.1) mmol/L Chloride 102 (98-107) mmol/L Carbon Dioxide 23 (22-30) mmol/L Anion Gap 10 mmol/L BUN 22 H (7-17) mg/dL Creatinine 0.83 (0.52-1.04) mg/dL Est GFR (CKD-EPI)AfAm 87 (>60 ml/min/1.73 sqM) Est GFR (CKD-EPI)NonAf 76 (>60 ml/min/1.73 sqM) Glucose 101 H (74-99) mg/dL Calcium 10.1 (8.4-10.2) mg/dL Magnesium 1.9 (1.6-2.3) mg/dL Total Bilirubin 0.3 (0.2-1.3) mg/dL AST 52 H (14-36) U/L ALT 49 H (4-34) U/L Alkaline Phosphatase 128 H (38-126) U/L Troponin I (0.000-0.034) ng/mL Total Protein 7.3 (6.3-8.2) g/dL Albumin 4.5 (3.5-5.0) g/dL 07/01/23 Range/Units 09:44 WBC (3.8-10.6) k/uL RBC (3.80-5.40) m/uL Hgb (11.4-16.0) gm/dL Hct (34.0-46.0) % MCV (80.0-100.0) fL MCH (25.0-35.0) pg MCHC (31.0-37.0) g/dL RDW (11.5-15.5) % Plt Count (150-450) k/uL MPV Neutrophils % % Lymphocytes % % Monocytes % % Eosinophils % % Basophils % % Neutrophils # (1.3-7.7) k/uL Lymphocytes # (1.0-4.8) k/uL Monocytes # (0-1.0) k/uL Eosinophils # (0-0.7) k/uL Basophils # (0-0.2) k/uL PT (9.0-12.0) sec INR (<1.2) APTT (22.0-30.0) sec D-Dimer (<0.60) mg/L FEU Sodium (137-145) mmol/L Potassium (3.5-5.1) mmol/L Chloride (98-107) mmol/L Carbon Dioxide (22-30) mmol/L Anion Gap mmol/L BUN (7-17) mg/dL Creatinine (0.52-1.04) mg/dL Est GFR (CKD-EPI)AfAm (>60 ml/min/1.73 sqM) Est GFR (CKD-EPI)NonAf (>60 ml/min/1.73 sqM) Glucose (74-99) mg/dL Calcium (8.4-10.2) mg/dL Magnesium (1.6-2.3) mg/dL Total Bilirubin (0.2-1.3) mg/dL AST (14-36) U/L ALT (4-34) U/L Alkaline Phosphatase (38-126) U/L Troponin I <0.012 (0.000-0.034) ng/mL Total Protein (6.3-8.2) g/dL Albumin (3.5-5.0) g/dL Disposition Clinical Impression: Chest pain Disposition: ADMITTED IP TO THIS HOSP Is patient prescribed a controlled substance at d/c from ED?: No Referrals: Adan Honeycutt MD [Primary Care Provider] - 1-2 days Time of Disposition: 11:29
[2023-07-01 09:58] LABS: Basophils % (A) 1 %; Eosinophils # (A) 0.4 k/uL (0-0.7); Eosinophils % (A) 6 %; HCT 30.4 % (34.0-46.0); HGB 10.5 gm/dL (11.4-16.0); Lymphocytes # (A) 2.9 k/uL (1.0-4.8); Lymphocytes % (A) 36 %; MCH 32.9 pg (25.0-35.0); MCHC 34.5 g/dL (31.0-37.0); MCV 95.4 fL (80.0-100.0); Mean Platelet Volume 7.4; Monocytes # (A) 0.6 k/uL (0-1.0); Monocytes % (A) 8 %; Neutrophils # (A) 3.8 k/uL (1.3-7.7); Neutrophils % (A) 47 %; Platelet Count 310 k/uL (150-450); RBC 3.18 m/uL (3.80-5.40); RDW 12.4 % (11.5-15.5); WBC 7.9 k/uL (3.8-10.6)
[2023-07-01 10:11] LABS: INR 0.9 (<1.2); Partial Thromboplastin Time 24.2 sec (22.0-30.0); Prothrombin Time 9.7 sec (9.0-12.0)
[2023-07-01 10:18] LABS: ALT 49 U/L (4-34); AST 52 U/L (14-36); African American GFR (CKD) 87 (>60 ml/min/1.73 sqM); Albumin 4.5 g/dL (3.5-5.0); Alkaline Phosphatase 128 U/L (38-126); Anion Gap 10 mmol/L; Blood Urea Nitrogen 22 mg/dL (7-17); Calcium 10.1 mg/dL (8.4-10.2); Carbon Dioxide 23 mmol/L (22-30); Chloride 102 mmol/L (98-107); Glucose 101 mg/dL (74-99); Magnesium 1.9 mg/dL (1.6-2.3); Non-African American GFR(CKD) 76 (>60 ml/min/1.73 sqM); Potassium 4.6 mmol/L (3.5-5.1); Sodium 135 mmol/L (137-145); Total Bilirubin 0.3 mg/dL (0.2-1.3); Total Protein 7.3 g/dL (6.3-8.2)
--- NOTE | 2023-07-01 10:31 | XR ---
EXAMINATION TYPE: XR chest 2V DATE OF EXAM: 07/01/2023 10:21 AM COMPARISON: Chest radiographs from 10/20/2022, CT chest 01/04/2023 TECHNIQUE: XR chest 2V Frontal and lateral views of the chest. CLINICAL INDICATION:Female, 62 years old with history of Chest Pain; FINDINGS: Lungs/Pleura: There is no evidence of pleural effusion, focal consolidation, or pneumothorax. Pulmonary vascularity: Unremarkable. Heart/mediastinum: Cardiomediastinal silhouette is unremarkable. Atherosclerotic calcifications are seen in the aorta. Musculoskeletal: No acute osseous pathology. IMPRESSION: No acute cardiopulmonary disease/process.
[2023-07-01] MEDS ORDERED: NITROGLYCERIN SL TABS 0.4 MG TAB SUBLINGUAL PRN (11:29)
--- NOTE | 2023-07-01 13:20 | CONS ---
CONSULTATION CHIEF COMPLAINT: Chest pain. HISTORY OF PRESENT ILLNESS: This is a 62-year-old lady with history of depression, hypertension, dyslipidemia, and comes to [facility] complaining of chest pain. She describes it as a precordial chest pressure with a stabbing sensation that radiated to her back. It came on suddenly this morning without any other associated symptoms. She is not short of breath. There is no diaphoresis. No dizziness. No definite radiation of pain to neck, arm, or back. At the time of my evaluation in the emergency room, she is feeling better. An EKG shows normal sinus rhythm, normal axis, normal intervals, has 1 set of troponin that is within normal limits. D-dimer is normal. CBC and electrolytes are okay. Her labs show that the hemoglobin is low at 10.5. Potassium is 4.6, creatinine is 0.8. The patient has had similar episodes of chest discomfort 6 months ago and had been evaluated by my associate, Dr. Alcantar apparently with a stress test and echocardiogram and the workup was benign. I do not have access to these records at this time. The patient's symptoms seem atypical. I am going to get 2 more sets of troponins. Obtain a 2D echo to rule out pericardial disease and obtain a stress test on her tomorrow if cardiac workup is negative. PAST MEDICAL HISTORY: Significant for hypertension, depression, dyslipidemia. MEDICATIONS: Include, 1. Lisinopril. 2. Atorvastatin. Other medications related to her psych disorder. ALLERGIES: As charted. FAMILY HISTORY: Negative for premature coronary artery disease. SOCIAL HISTORY: Negative for smoking, EtOH abuse or drug abuse. She quit smoking a few years ago. REVIEW OF SYSTEMS: A 14 out of 14 review of systems has been performed. Pertinents are as documented. PHYSICAL EXAMINATION: GENERAL: Comfortable at rest. VITAL SIGNS: Stable. NECK: There is no jugular venous distention. Carotid upstroke is normal. There is no bruit. CHEST: Reveals good air entry bilaterally. HEART: Reveals first and second heart sounds. No gallop. No murmur. ABDOMEN: Soft, nontender. EXTREMITIES: Exam of extremities did not reveal any edema. Peripheral pulses are felt. LABORATORY DATA: Labs show that the troponin is negative. EKG is normal. ASSESSMENT: 1. Precordial chest pain. 2. Hypertension. 3. Dyslipidemia. PLAN: I will obtain a 2D echo, serial cardiac enzymes and a stress test tomorrow morning. MMODL / IJN: [id number] /
[2023-07-01] MEDS: NITROGLYCERIN OINT 1 INCH/GM PACKET TOPICAL SCH ×3 (13:35→23:15)
[2023-07-01] MEDS: NICOTINE 14MG/24HR PATCH TRANSDERM SCH (16:55)
--- NOTE | 2023-07-01 17:54 | CA ---
Transthoracic Echo Report Name: Inez Jaime Age: 62 Gender: F : 1960 Exam Date: 07/01/2023 13:44 Exam Location: [place] [facility] Ht (in): 64 Wt (lb): 162 Ordering Physician: Alejandro Santiago MD ([id number]) Attending/Referring Phys: Jack GUTIERREZ Examiner Rating Clerk Mckinley Nix Procedure CPT: Indications: Chest Pain Cardiac Hx: Technical Quality: Fair Contrast 1: Total Dose (mL): Contrast 2: Total Dose (mL): MEASUREMENTS (Male / Female) Normal Values 2D ECHO LV Diastolic Diameter PLAX 3.7 cm 4.2 - 5.9 / 3.9 - 5.3 cm LV Systolic Diameter PLAX 2.4 cm IVS Diastolic Thickness 0.8 cm 0.6 - 1.0 / 0.6 - 0.9 cm LVPW Diastolic Thickness 1.0 cm 0.6 - 1.0 / 0.6 - 0.9 cm LV Relative Wall Thickness 0.5 RV Internal Dim ED PLAX 2.6 cm LVOT Diameter 2.1 cm Aortic Root Diameter 3.1 cm LA Systolic Diameter LX 2.1 cm 3.0 - 4.0 / 2.7 - 3.8 cm LV Diastolic Volume MOD BP 54.6 cm??? 67 - 155 / 56 - 104 cm??? LV Systolic Volume MOD BP 21.6 cm??? 22 - 58 / 19 - 49 cm??? LV Ejection Fraction MOD BP 60.5 % >= 55 % LV Cardiac Index MOD BP 1292.5 cm???/min???m??? LV Diastolic Volume MOD 4C 48.1 cm??? LV Systolic Volume MOD 4C 20.6 cm??? LV Ejection Fraction MOD 4C 57.1 % LV Cardiac Index MOD 4C 1073.0 cm???/min???m??? LV Diastolic Length 4C 6.8 cm LV Systolic Length 4C 5.6 cm LV Diastolic Volume MOD 2C 58.6 cm??? LV Systolic Volume MOD 2C 22.0 cm??? LV Ejection Fraction MOD 2C 62.5 % LV Cardiac Index MOD 2C 1432.3 cm???/min???m??? LV Diastolic Length 2C 7.3 cm LV Systolic Length 2C 5.8 cm LA Volume 23.5 cm??? 18 - 58 / 22 - 52 cm??? Ascending Aorta Diameter 3.6 cm DOPPLER AV Peak Velocity 141.8 cm/s AV Peak Gradient 8.0 mmHg AI Peak Velocity 295.5 cm/s AI Peak Gradient 34.9 mmHg AI Pressure Half Time 766.2 ms LVOT Peak Velocity 114.2 cm/s LVOT Peak Gradient 5.2 mmHg AV Area Cont Eq pk 2.8 cm??? MV Peak Velocity 108.8 cm/s MV Peak Gradient 4.7 mmHg MV Mean Velocity 58.3 cm/s MV Mean Gradient 1.6 mmHg MV Velocity Time Integral 41.1 cm MR Peak Velocity 443.7 cm/s MR Peak Gradient 78.7 mmHg Mitral E Point Velocity 62.1 cm/s Mitral A Point Velocity 100.4 cm/s Mitral E to A Ratio 0.6 MV Deceleration Time 457.1 ms MV E' Velocity 5.7 cm/s Mitral E to MV E' Ratio 10.9 TR Peak Velocity 428.5 cm/s TR Peak Gradient 73.4 mmHg PV Peak Velocity 90.4 cm/s PV Peak Gradient 3.3 mmHg FINDINGS Left Ventricle Normal LV size and wall thickness.left ventricular ejection fraction is estimated at 55-60 %. Right Ventricle Normal right ventricular size. Right Atrium Normal right atrial size. Left Atrium Normal left atrial size. Mitral Valve Mid posterior MAC. Mild MR. Aortic Valve Trileaflet aortic valve. Trace AI. Tricuspid Valve Structurally normal tricuspid valve.Trace TR. Pulmonic Valve Pulmonic valve not well visualized. Trace PI. Pericardium Normal pericardium. Aorta Normal AO root harjeet. Ascending AO harjeet= 3.6cm CONCLUSIONS Normal LV function Previewed by: Dr. Alejandro Santiago MD (Electronically Signed) Final Date: 01 July 2023 17:53
[2023-07-01] MEDS: ACETAMINOPHEN TAB 325 MG TAB PO PRN (20:36)
[2023-07-01] MEDS ORDERED: NON FORMULARY DRUG (Cariprazine Hcl [Vraylar] 1.5 MG Capsule) PO SCH (21:00)
[2023-07-01] MEDS ORDERED: QUEtiapine 100 MG TAB PO SCH (21:00)
[2023-07-01] MEDS ORDERED: lamoTRIgine 100 MG TAB PO SCH (21:00)
[2023-07-01 22:42] VITALS: RESP 16
[2023-07-02] MEDS: ACETAMINOPHEN TAB 325 MG TAB PO PRN (04:38)
[2023-07-02] MEDS: NITROGLYCERIN OINT 1 INCH/GM PACKET TOPICAL SCH ×2 (05:57→11:39)
[2023-07-02] MEDS ORDERED: LEVOTHYROXINE 100 MCG TAB PO SCH (06:30)
[2023-07-02] MEDS ORDERED: PANTOPRAZOLE 40 MG TABLET PO SCH (07:30)
[2023-07-02] MEDS ORDERED: VENLAFAXINE HCL ER 150 MG CAP PO SCH (09:00)
[2023-07-02] MEDS ORDERED: ASPIRIN 325 MG TAB PO SCH (09:00)
[2023-07-02] MEDS ORDERED: ASPIRIN 81 MG PO SCH (09:00)
[2023-07-02] MEDS ORDERED: lisinopriL 10 MG TAB PO SCH (09:00)
[2023-07-02] MEDS ORDERED: ATORVASTATIN 20 MG TAB PO SCH (09:00)
[2023-07-02 09:03] LABS: Chol/HDL Ratio 4.76 Ratio; LDL Cholesterol,Calculated 68.8 mg/dL (0.0-131.0)
--- NOTE | 2023-07-02 09:35 | P.PN ---
Subjective HISTORY OF PRESENT ILLNESS: This is 62-year-old female with a history of hypertension, hyperlipidemia, and depression. Patient presented to the hospital with a chief complaint of chest pain. Patient examined this morning at the bedside. No further episodes of chest pain or pressure. She denies shortness of breath. Echocardiogram completed revealing ejection fraction 55-60%, mild MR, trace TR. PHYSICAL EXAM: VITAL SIGNS: Reviewed. GENERAL: Well-developed in no acute distress. NECK: Supple. No JVD or thyromegaly LUNGS: Respirations even and unlabored. Lungs essentially clear to auscultation bilaterally. HEART: Regular rate and rhythm. S1 and S2 heard. EXTREMITIES: Normal range of motion. No clubbing or cyanosis. Peripheral pulses intact. No lower extremity edema ASSESSMENT: Chest pain, troponins negative 3 Hypertension Hyperlipidemia PLAN: 2-D echo obtained and reviewed Continue current cardiac medications Patient to undergo stress echocardiogram today If stress echo is negative, she may be discharged home from a cardiac standpoint and follow up on an outpatient basis Nurse practitioner note has been reviewed by physician. Signing provider agrees with the documented findings, assessment, and plan of care. Objective - Vital Signs Vital signs: Vital Signs Temp 97.7 F 07/02/23 07:00 Pulse 70 07/02/23 07:00 Resp 16 07/02/23 07:00 BP 100/62 07/02/23 07:00 Pulse Ox 96 07/02/23 08:30 FiO2 21 07/02/23 08:30 Intake & Output 07/01/23 07/02/23 07/02/23 18:59 06:59 18:59 Weight 73.482 kg 73.482 kg Other: Voiding Method Toilet # Voids 2 - Labs CBC & Chem 7: 07/01/23 09:44 07/01/23 09:44 Labs: Abnormal Lab Results - Last 24 Hours (Table) 07/01/23 07/01/23 07/01/23 Range/Units 09:44 09:44 09:44 RBC 3.18 L (3.80-5.40) m/uL Hgb 10.5 L (11.4-16.0) gm/dL Hct 30.4 L (34.0-46.0) % Sodium 135 L (137-145) mmol/L BUN 22 H (7-17) mg/dL Glucose 101 H (74-99) mg/dL AST 52 H (14-36) U/L ALT 49 H (4-34) U/L Alkaline Phosphatase 128 H (38-126) U/L Triglycerides 359.00 H (0.00-149.00) mg/dL VLDL Cholesterol, Calc 71.80 H (5.00-40.00) mg/dL HDL Cholesterol 37.40 L (40.00-60.00) mg/dL
[2023-07-02] MEDS: NICOTINE 14MG/24HR PATCH TRANSDERM SCH (11:37)
[2023-07-02 14:22] VITALS: BP 102/65; PULSE 83; TEMP 98.1
--- NOTE | 2023-07-02 17:45 | CA ---
Stress Echo Report Inez Jaime Age: 62 Gender: F : 1960 Exam Date: 07/02/2023 11:01 Exam Location: [place] [facility] Ht (in): 64 Wt (lb): 162 Ordering Physician: Alejandro Santiago MD ([id number]) Referring Physician: Jack GUTIERREZ Director Clinical Research: MERRILL, Technologist Procedure CPT: Indication: Chest Pain ICD-9 Codes: Rhythm: Patient History: Chest pain Cardiac Medications: Medications in past 24 hours: Contrast: Stress Results Protocol: Garett Total dose(mL): Exercise Duration (min:sec): Max ST Depression (mm): Angina Score: Florence Score: METS: 7.9 Resting HR: 86 Resting BP: 116 / 83 Peak HR: 152 Peak BP: 173 / 76 Max Predicted HR: 157 97 % Max Predicted HR Target HR: 133 Double Product: [id number] Stress Summary: BP Response: Reason for Termination: MAX EXERTION/TARGET HR Cardiac Symptoms: NO SYMPTOMS ECG Analysis Resting ECG: Normal sinus rhythm normal axis intervals with poor R-wave progression Stress ECG: Patient exercised on Garett protocol for 6 and half minutes achieving 85% of predicted maximal heart rate without chest pain or diagnostic ST segment depression Arrhythmia: Echo Analysis Resting Echo: Normal left ventricular size wall motion systolic function Peak Echo Analysis: Normal hyperdynamic response was about myocardium noted MEASUREMENTS (Male/Female) Normal Values CONCLUSIONS Average exercise tolerance Negative stress test by EKG criteria Negative stress echo Dr. Alejandro Santiago MD (Electronically Signed) Final Date: 02 July 2023 17:44
[2023-07-05] MEDS ORDERED: ERGOCALCIFEROL 1,250 MCG (50,000 IU) CAPSULE PO SCH (09:00)
== END 2023-07-02 15:04 | disposition home or self-care (01) ==
LOC: EC 08:54 → 6NMEDSUR 11:30
PROVIDERS: ADMIT Family Medicine; ATTEND Family Medicine
DX: R07.89 Other chest pain (principal); R07.2 Precordial pain; I10 Essential (primary) hypertension; E78.5 Hyperlipidemia, unspecified; D64.9 Anemia, unspecified; F31.9 Bipolar disorder, unspecified; N17.9 Acute kidney failure, unspecified; E07.9 Disorder of thyroid, unspecified; Z79.899 Other long term (current) drug therapy; Z79.890 Hormone replacement therapy; Z88.8 Allergy status to other drugs, medicaments and biological substances; Z87.891 Personal history of nicotine dependence
CPT/HCPCS: 99285; 36415; 94760; 93005; 93306; 93351; 85379; 80061; 80053; 80175; 83735; 84484; 85025; 85610; 85730; 71046; G0378 ×2; S4990 ×2

== ENCOUNTER → 2023-09-21 | Outpatient (CLI) | payer OTHER ==
[2023-09-21 15:58] LABS: HCT 42.4 % (37.2-46.3); HGB 13.8 d/dL (12.0-15.0); MCH 31.9 pg (27.0-32.0); MCHC 32.5 d/dL (32.0-37.0); MCV 98.1 FL (80.0-97.0); Mean Platelet Volume 9.9 FL (9.5-12.2); NRBC Per 100 WBC 0 X 10*3/uL (0.00-0.01); Platelet Count 255 X 10*3/uL (140-440); RBC 4.32 X 10*6/uL (4.10-5.20); WBC 5.46 X 10*3/uL (4.50-10.00)
[2023-09-21 16:06] LABS: ALT 29 U/L (8-44); AST 22 U/L (13-35); Albumin/Globulin Ratio 2.17 Ratio (1.60-3.17); Alkaline Phosphatase 107 U/L (41-126); BUN/Creat Ratio 27.44 Ratio (12.00-20.00); Blood Urea Nitrogen 24.7 mg/dL (9.0-27.0); Calcium 10.8 mg/dL (8.7-10.3); Carbon Dioxide 21.2 mmol/L (21.6-31.8); Chloride 105 mmol/L (96-109); Chol/HDL Ratio 3.97 Ratio; Globulin 2.3 d/dL (1.6-3.3); Glucose 102 mg/dL (70-110); LDL Cholesterol,Calculated 82.8 mg/dL (0.0-131.0); Potassium 5.3 mmol/L (3.5-5.5); Sodium 139 mmol/L (135-145); Total Bilirubin 0.2 mg/dL (0.3-1.2); Total Protein 7.3 d/dL (6.2-8.2)
== END | disposition home or self-care (01) ==
LOC: LABWHC1 07:51
PROVIDERS: ATTEND Psychiatry & Neurology Psychiatry
DX: Z79.899 Other long term (current) drug therapy (principal)
CPT/HCPCS: 36415; 80053; 80061; 82306; 83036; 84439; 84443; 85027

== ENCOUNTER 2024-04-29 12:10 | Emergency (ER) | payer BC, OTHER ==
--- NOTE | 2024-04-29 12:40 | ED ---
Dizziness HPI - General Chief Complaint: Dizziness Stated Complaint: Neuro Symptoms Time Seen by Provider: 04/29/24 12:22 Source: patient Mode of arrival: ambulatory Limitations: no limitations - History of Present Illness Initial Comments: 63-year-old female who presents emergency department with generalized weakness. States that earlier today she started developing weakness all over her body. She felt like the weakness in her left arm was worse than her right. Feels as if both legs are weak. She denies any recent illnesses. No fevers, chills or cough. No chest pain. No back pain. Denies abdominal pain. No changes in her bowel or bladder habits. She has no history of stroke. No headaches or visual changes. No other alleviating, precipitating modifying factors - Related Data Home Medications Medication Instructions Recorded Confirmed Venlafaxine HCl [Effexor XR] 150 mg PO DAILY 04/02/14 04/29/24 Ergocalciferol [Vitamin D2 (1250 1,250 mcg PO MO 04/26/22 04/29/24 Mcg = [id number] Iu)] lamoTRIgine [LaMICtal] 200 mg PO HS 04/27/22 04/29/24 Atorvastatin [Lipitor] 20 mg PO HS 07/01/23 04/29/24 Omeprazole 40 mg PO DAILY 07/01/23 04/29/24 QUEtiapine FUMARATE [SEROquel] 300 mg PO HS 07/01/23 04/29/24 lisinopriL [Zestril] 10 mg PO DAILY 07/01/23 04/29/24 Cariprazine HCl [Vraylar] 3 mg PO HS 04/29/24 04/29/24 Levothyroxine Sodium [Synthroid] 88 mcg PO DAILY 04/29/24 04/29/24 Allergies Allergy/AdvReac Type Severity Reaction Status Date / Time lithium AdvReac Nausea Verified 04/29/24 14:10 Review of Systems ROS Statement: Those systems with pertinent positive or pertinent negative responses have been documented in the HPI. ROS Other: All systems not noted in ROS Statement are negative. Past Medical History Past Medical History: Hyperlipidemia, Hypertension, Thyroid Disorder Additional Past Medical History / Comment(s): Acute Kidney failure- due to low BP History of Any Multi-Drug Resistant Organisms: None Reported Past Surgical History: Tonsillectomy Past Anesthesia/Blood Transfusion Reactions: No Reported Reaction Past Psychological History: Bipolar Smoking Status: Former smoker Past Alcohol Use History: Occasional Past Drug Use History: None Reported General Exam Limitations: no limitations General appearance: alert, in no apparent distress Head exam: Present: atraumatic, normocephalic, normal inspection Eye exam: Present: normal appearance, PERRL, EOMI. Absent: scleral icterus, conjunctival injection, periorbital swelling ENT exam: Present: normal exam, mucous membranes moist Neck exam: Present: normal inspection. Absent: tenderness, meningismus, lymphadenopathy Respiratory exam: Present: normal lung sounds bilaterally. Absent: respiratory distress, wheezes, rales, rhonchi, stridor Cardiovascular Exam: Present: regular rate, normal rhythm, normal heart sounds. Absent: systolic murmur, diastolic murmur, rubs, gallop, clicks GI/Abdominal exam: Present: soft, normal bowel sounds. Absent: distended, tenderness, guarding, rebound, rigid Extremities exam: Present: normal inspection, full ROM, normal capillary refill. Absent: tenderness, pedal edema, joint swelling, calf tenderness Back exam: Present: normal inspection Neurological exam: Present: alert, oriented X3, CN II-XII intact Psychiatric exam: Present: normal affect, normal mood Skin exam: Present: warm, dry, intact, normal color. Absent: rash Course Vital Signs 04/29/24 04/29/24 04/29/24 12:14 13:24 14:47 Temperature 97.8 F 98.6 F Pulse Rate 79 73 73 Respiratory 20 16 16 Rate Blood Pressure 139/91 154/90 139/94 O2 Sat by Pulse 97 98 95 Oximetry 04/29/24 16:12 Temperature 98.1 F Pulse Rate 74 Respiratory 16 Rate Blood Pressure 140/95 O2 Sat by Pulse 94 L Oximetry Medical Decision Making - Medical Decision Making Was pt. sent in by a medical professional or institution (, PA, MANAGER ENGINE, urgent care, hospital, or snf...) When possible be specific @ -No Did you speak to anyone other than the patient for history (EMS, parent, family, police, friend...)? What history was obtained from this source @ -No Did you review nursing and triage notes (agree or disagree)? Why? @ -I reviewed and agree with nursing and triage notes Were old charts reviewed (outside hosp., previous admission, EMS record, old EKG, old radiological studies, urgent care reports/EKG's, snf records)? Report findings @ -No old charts were reviewed Differential Diagnosis (chest pain, altered mental status, abdominal pain women, abdominal pain men, vaginal bleeding, weakness, fever, dyspnea, syncope, headache, dizziness, GI bleed, back pain, seizure, CVA, palpatations, mental health, musculoskeletal)? @Differential Weakness: Hypoglycemia, shock, sepsis, hyponatremia, anemia, infection, CO, ETOH, adverse medicine reaction, overdose, stroke, this is not meant to be an all-inclusive list. EKG interpreted by me (3pts min.). @ -Yes and demonstrates sinus rhythm with a rate of 69. NC interval 194. QRS 95. QTc of 401. No acute ST segment elevations or depressions X-rays interpreted by me (1pt min.). @ -None done CT interpreted by me (1pt min.). @ -Yes and demonstrates no acute process U/S interpreted by me (1pt. min.). @ -None done What testing was considered but not performed or refused? (CT, X-rays, U/S, labs)? Why? @ -None What meds were considered but not given or refused? Why? @ -None Did you discuss the management of the patient with other professionals (professionals i.e. , PA, MANAGER ENGINE, lab, RT, psych nurse, administrator social welfare, teacher private, teacher, principal gifts officer, onsite case manager)? Give summary @ -No Was smoking cessation discussed for >3mins.? @ -No Was critical care preformed (if so, how long)? @ -No Were there social determinants of health that impacted care today? How? (Homelessness, low income, unemployed, alcoholism, drug addiction, transportation, low edu. Level, literacy, decrease access to med. care, intermediate, rehab)? @ -No Was there de-escalation of care discussed even if they declined (Discuss DNR or withdrawal of care, Hospice)? DNR status @ -No What co-morbidities impacted this encounter? (DM, HTN, Smoking, COPD, CAD, Cancer, CVA, ARF, Chemo, Hep., AIDS, mental health diagnosis, sleep apnea, morbid obesity)? @ -None Was patient admitted / discharged? Hospital course, mention meds given and route, prescriptions, significant lab abnormalities, going to OR and other pertinent info. @ -Upon arrival patient seen and evaluated in room 3. Thorough history and physical exam was performed NH is performed. Patient has no lateralizing weakness. She does admit to generalized weakness. Because of this code stroke is not activated. I did complete laboratory studies and imaging. Discussed results with the patient. She feels reassured by the testing that was done and would like to go home. Informed the patient that she needs to return for any new or worsening symptoms. She is agreeable to this plan she was discharged in stable condition Undiagnosed new problem with uncertain prognosis? @ -Yes Drug Therapy requiring intensive monitoring for toxicity (Heparin, Nitro, I nsulin, Cardizem)? @ -No Were any procedures done? @ -No Diagnosis/symptom? @ -Acute generalized weakness Acute, or Chronic, or Acute on Chronic? @ -Acute Uncomplicated (without systemic symptoms) or Complicated (systemic symptoms)? @ -Complicated Side effects of treatment? @ -No Exacerbation, Progression, or Severe Exacerbation? @ -No Poses a threat to life or bodily function? How? (Chest pain, USA, CO, pneumonia, PE, COPD, DKA, ARF, appy, cholecystitis, CVA, Diverticulitis, Homicidal, S uicidal, threat to staff... and all critical care pts) @ -No - Lab Data Result diagrams: 04/29/24 13:10 04/29/24 13:10 Lab Results 04/29/24 04/29/24 04/29/24 Range/Units 13:10 13:10 13:10 WBC 6.2 (3.8-10.6) k/uL RBC 4.18 (3.80-5.40) m/uL Hgb 13.7 (11.4-16.0) gm/dL Hct 40.8 (34.0-46.0) % MCV 97.5 (80.0-100.0) fL MCH 32.7 (25.0-35.0) pg MCHC 33.5 (31.0-37.0) g/dL RDW 12.3 (11.5-15.5) % Plt Count 242 (150-450) k/uL MPV 7.8 Neutrophils % 55 % Lymphocytes % 30 % Monocytes % 7 % Eosinophils % 4 % Basophils % 1 % Neutrophils # 3.4 (1.3-7.7) k/uL Lymphocytes # 1.9 (1.0-4.8) k/uL Monocytes # 0.5 (0-1.0) k/uL Eosinophils # 0.3 (0-0.7) k/uL Basophils # 0.0 (0-0.2) k/uL Sodium 136 L (137-145) mmol/L Potassium 4.4 (3.5-5.1) mmol/L Chloride 105 (98-107) mmol/L Carbon Dioxide 25 (22-30) mmol/L Anion Gap 6 mmol/L BUN 15 (7-17) mg/dL Creatinine 0.64 (0.52-1.04) mg/dL Est GFR (CKD-EPI)AfAm >90 (>60 ml/min/1.73 sqM) Est GFR (CKD-EPI)NonAf >90 (>60 ml/min/1.73 sqM) Glucose 102 H (74-99) mg/dL Calcium 10.3 H (8.4-10.2) mg/dL Total Bilirubin 0.5 (0.2-1.3) mg/dL AST 27 (14-36) U/L ALT 31 (4-34) U/L Alkaline Phosphatase 103 (38-126) U/L Troponin I (0.000-0.034) ng/mL Total Protein 7.2 (6.3-8.2) g/dL Albumin 4.7 (3.5-5.0) g/dL Urine Color Colorless Urine Appearance Clear (Clear) Urine pH 6.5 (5.0-8.0) Ur Specific [place] 1.002 (1.001-1.035) Urine Protein Negative (Negative) Urine Glucose (UA) Negative (Negative) Urine Ketones Negative (Negative) Urine Blood Negative (Negative) Urine Nitrite Negative (Negative) Urine Bilirubin Negative (Negative) Urine Urobilinogen <2.0 (<2.0) mg/dL Ur Leukocyte Esterase Trace H (Negative) Urine WBC 3 (0-5) /hpf Influenza Type A (PCR) (Not Detectd) Influenza Type B (PCR) (Not Detectd) RSV (PCR) (Not Detectd) SARS-CoV-2 (PCR) (Not Detectd) 04/29/24 04/29/24 Range/Units 13:10 13:10 WBC (3.8-10.6) k/uL RBC (3.80-5.40) m/uL Hgb (11.4-16.0) gm/dL Hct (34.0-46.0) % MCV (80.0-100.0) fL MCH (25.0-35.0) pg MCHC (31.0-37.0) g/dL RDW (11.5-15.5) % Plt Count (150-450) k/uL MPV Neutrophils % % Lymphocytes % % Monocytes % % Eosinophils % % Basophils % % Neutrophils # (1.3-7.7) k/uL Lymphocytes # (1.0-4.8) k/uL Monocytes # (0-1.0) k/uL Eosinophils # (0-0.7) k/uL Basophils # (0-0.2) k/uL Sodium (137-145) mmol/L Potassium (3.5-5.1) mmol/L Chloride (98-107) mmol/L Carbon Dioxide (22-30) mmol/L Anion Gap mmol/L BUN (7-17) mg/dL Creatinine (0.52-1.04) mg/dL Est GFR (CKD-EPI)AfAm (>60 ml/min/1.73 sqM) Est GFR (CKD-EPI)NonAf (>60 ml/min/1.73 sqM) Glucose (74-99) mg/dL Calcium (8.4-10.2) mg/dL Total Bilirubin (0.2-1.3) mg/dL AST (14-36) U/L ALT (4-34) U/L Alkaline Phosphatase (38-126) U/L Troponin I <0.012 (0.000-0.034) ng/mL Total Protein (6.3-8.2) g/dL Albumin (3.5-5.0) g/dL Urine Color Urine Appearance (Clear) Urine pH (5.0-8.0) Ur Specific [place] (1.001-1.035) Urine Protein (Negative) Urine Glucose (UA) (Negative) Urine Ketones (Negative) Urine Blood (Negative) Urine Nitrite (Negative) Urine Bilirubin (Negative) Urine Urobilinogen (<2.0) mg/dL Ur Leukocyte Esterase (Negative) Urine WBC (0-5) /hpf Influenza Type A (PCR) Not Detected (Not Detectd) Influenza Type B (PCR) Not Detected (Not Detectd) RSV (PCR) Not Detected (Not Detectd) SARS-CoV-2 (PCR) Not Detected (Not Detectd) Disposition Clinical Impression: Generalized weakness Disposition: HOME SELF-CARE Condition: Stable Instructions (If sedation given, give patient instructions): Weakness (ED) Additional Instructions: Please monitor your symptoms. Return to the emergency department for any new or worsening symptoms, especially if your weakness becomes left or right-sided. Follow up with the neurointensivist in regards to the possible small aneurysm seen on ct scan Is patient prescribed a controlled substance at d/c from ED?: No Referrals: Adan Honeycutt MD [Primary Care Provider] - 1-2 days Marleny Daley MD [STAFF PHYSICIAN] - 1-2 days Time of Disposition: 15:11
[2024-04-29 13:17] LABS: Basophils % (A) 1 %; Eosinophils # (A) 0.3 k/uL (0-0.7); Eosinophils % (A) 4 %; HCT 40.8 % (34.0-46.0); HGB 13.7 gm/dL (11.4-16.0); Lymphocytes # (A) 1.9 k/uL (1.0-4.8); Lymphocytes % (A) 30 %; MCH 32.7 pg (25.0-35.0); MCHC 33.5 g/dL (31.0-37.0); MCV 97.5 fL (80.0-100.0); Mean Platelet Volume 7.8; Monocytes # (A) 0.5 k/uL (0-1.0); Monocytes % (A) 7 %; Neutrophils # (A) 3.4 k/uL (1.3-7.7); Neutrophils % (A) 55 %; Platelet Count 242 k/uL (150-450); RBC 4.18 m/uL (3.80-5.40); RDW 12.3 % (11.5-15.5); WBC 6.2 k/uL (3.8-10.6)
[2024-04-29] MEDS: SODIUM CHLORIDE 0.9% 1,000 ML IV STA (13:23)
[2024-04-29 13:26] VITALS: RESP 16
[2024-04-29 13:28] LABS: ALT 31 U/L (4-34); AST 27 U/L (14-36); African American GFR (CKD) >90 (>60 ml/min/1.73 sqM); Albumin 4.7 g/dL (3.5-5.0); Alkaline Phosphatase 103 U/L (38-126); Anion Gap 6 mmol/L; Blood Urea Nitrogen 15 mg/dL (7-17); Calcium 10.3 mg/dL (8.4-10.2); Carbon Dioxide 25 mmol/L (22-30); Chloride 105 mmol/L (98-107); Glucose 102 mg/dL (74-99); Non-African American GFR(CKD) >90 (>60 ml/min/1.73 sqM); Potassium 4.4 mmol/L (3.5-5.1); Sodium 136 mmol/L (137-145); Total Bilirubin 0.5 mg/dL (0.2-1.3); Total Protein 7.2 g/dL (6.3-8.2)
[2024-04-29 13:48] LABS: Appearance,Urine Clear (Clear); Bilirubin,Urine Negative (Negative); Blood,Urine Negative (Negative); Color,Urine Colorless; Glucose,Urine (UA) Negative (Negative); Ketones,Urine Negative (Negative); Leukocyte Esterase,Urine Trace (Negative); Nitrite,Urine Negative (Negative); PH, Urine 6.5 (5.0-8.0); Protein,Urine Negative (Negative); Specific Gravity,Urine 1.002 (1.001-1.035); Urobilinogen,Urine <2.0 mg/dL (<2.0); WBC,Urine 3 /hpf (0-5)
--- NOTE | 2024-04-29 14:23 | CT ---
EXAMINATION TYPE: CT brain wo con DATE OF EXAM: 04/29/2024 COMPARISON: None HISTORY: bilateral extremity weakness started today CT DLP: 1069 mGycm Automated exposure control for dose reduction was used. FINDINGS: Orbits are symmetric. No acute hemorrhage or mass effect. No midline shift. Mild generalized degenera tive changes. Calvarium intact. Craniocervical junction maintained. Tiny hypodensities within the lef t basal ganglia may reflect remote lacunar infarct. IMPRESSION: NO ACUTE HEMORRHAGE OR MASS EFFECT.
--- NOTE | 2024-04-29 14:48 | CT ---
EXAMINATION TYPE: CT angio head neck DATE OF EXAM: 04/29/2024 HISTORY: bilateral extremity weakness started today COMPARISON: None CT DLP: 411.8 mGycm. Automated Exposure Control for Dose Reduction was Utilized. TECHNIQUE: CTA scan of the head and neck is performed with IV Contrast, patient injected with 65 mL of Isovue 370, axial images are obtained, coronal and sagittal reformatted images are reviewed. 3D re constructed images are created on an independent workstation and reviewed. FINDINGS: There is mild to moderate atherosclerotic plaque of the carotid bifurcation on the left. No significa nt stenosis bilaterally. There is a trace of pericardial fluid. Ascending thoracic aorta measures 4 cm compatible with mild an eurysmal dilation. Vertebral basilar system is patent. On dural sinuses enhance normally. Visualized carotid arteries, M CA, HANDKERCHIEF MAKER enhance proximally. Cannot exclude a little ectasia or minimal aneurysmal dilation 1 to 2 mm of the proximal A1 segment right ECA. No abrupt vascular occlusion. IMPRESSION: 1. No significant carotid artery stenosis. 2. No proximal arterial occlusion. If there is concern for acute ischemia recommend correlation with MRI as clinically warranted. 3. Questionable tiny 1 to 2 mm A1 segment right anterior cerebral artery ectasia or aneurysm. Follow- up MRA recommended. NASCET criteria was used in interpretation of this exam?
[2024-04-29 16:18] VITALS: BP 140/95; PULSE 74; TEMP 98.1
== END 2024-04-29 16:30 | disposition home or self-care (01) ==
LOC: EC 12:10
DX: R53.1 Weakness (principal); Z11.52 Encounter for screening for COVID-19; Z87.891 Personal history of nicotine dependence; Z88.8 Allergy status to other drugs, medicaments and biological substances
CPT/HCPCS: 36415; 93005; 80053; 84484; 85025; 81001; 87636; 70496; 70450; 70498; 99284; 96360; Q9967

== ENCOUNTER → 2024-05-08 | Outpatient (CLI) | payer BC ==
--- NOTE | 2024-05-08 09:54 | CT ---
EXAMINATION TYPE: CT chest w con CT DLP: 382.4 mGycm, Automated exposure control for dose reduction was used. DATE OF EXAM: 05/08/2024 9:29 AM COMPARISON: 01/04/2023 CLINICAL INDICATION:Female, 63 years old with history of R91.1 SPN; PHH, LUNG NODULE TECHNIQUE: Multiple axial images were obtained through the chest. Sagittal and coronal reformats were created for review. Contrast used:100 mL of Isovue 300 with IV Contrast (None if empty) Oral contrast used: (None if empty) FINDINGS: LUNGS/ PLEURA: Stable architectural distortion in the right upper lung. Not significantly changed fro m 01/04/2023. No new or enlarging pulmonary nodules. No focal consolidation, pneumothorax or pleural e ffusion. Streaky atelectasis/scarring in the lung bases. AIRWAY: Patent and unremarkable. HEART: Size within normal limits. Coronary artery calcifications are present. MEDIASTINUM: No gross evidence of adenopathy. VASCULATURE: No aortic aneurysm. Ascending thoracic aorta measuring 3.9 cm which is within normal li mits. No descending thoracic aorta aneurysm. MUSCULOSKELETAL: No acute osseous abnormalities SOFT TISSUES/LYMPH NODES: Unremarkable. LOWER NECK: No significant findings. UPPER ABDOMEN: Right adrenal nodule IMPRESSION: 1. Stable right upper lung pulmonary architectural distortion. No new or enlarging pulmonary nodules . Consider yearly low-dose lung cancer screening. 2. Moderate coronary artery atherosclerosis. 3. Right adrenal nodule measuring 17 mm which is indeterminate. Consider adrenal mass protocol for c haracterization. Follow up recommendations for incidental pulmonary nodules, if there are any, are per [employer] or [employer]. [email or web address].[email or web address]?lang=us
== END | disposition home or self-care (01) ==
LOC: RADMRIMAIN 08:11
PROVIDERS: ATTEND Family Medicine
DX: I25.10 Atherosclerotic heart disease of native coronary artery without angina pectoris (principal); R91.1 Solitary pulmonary nodule; I67.1 Cerebral aneurysm, nonruptured
CPT/HCPCS: 71260; 70544; Q9967

== ENCOUNTER → 2025-01-24 | Outpatient (CLI) | payer MEDICARE ==
--- NOTE | 2025-01-24 18:56 | MR ---
INDICATION: Patient age:Female; 64 years old; Reason for study: M54.42 LUMBAGO WITH SCIATICA, LEFT SIDE; PHH. COMPARISONS: No priors. TECHNIQUE: Multi planar, multi sequence imaging was performed utilizing: T1-weighted, T2-weighted, a nd turbo inversion recovery imaging of the lumbar spine. The patient was not given contrast. FINDINGS: The lumbar vertebral bodies do have preserved heights. Grade 1 anterolisthesis of L4 on L5 without pars defects. Type I Modic changes involving the endplates around the L5-S1 disc with associ ated increased STIR signal. Disc desiccation with height loss at L5-S1. The conus medullaris and the distal spinal cord do appear unremarkable with regards to their signal intensity and morphology. L1-L2: No significant disc pathology is identified. The spinal canal and neural foramen are patent. L2-L3: No significant disc pathology is identified. The spinal canal and neural foramen are patent. L3-L4: No significant disc pathology is identified. The spinal canal and neural foramen are patent. L4-L5: Grade 1 anterolisthesis with uncovering of the disc. Broad-based disc bulge with ligamentum fl avum buckling and bilateral facet arthropathy contribute to mild central canal narrowing. Mild bilate ral neural foraminal narrowing. L5-S1: Broad-based disc bulge with no significant effacement of the anterior thecal sac. No significa nt central canal stenosis. Bilateral facet arthropathy with moderate right and moderate to severe lef t neural foraminal stenosis. Other significant findings: None. IMPRESSION: 1. 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 No disc herniation. 2. Grade 1 of L4 on L5 without pars defects. [facility], , 01/24/2025 6:53 PM
== END | disposition home or self-care (01) ==
LOC: RADMRIMAIN 18:01
PROVIDERS: ATTEND Family Medicine
DX: M51.16 Intervertebral disc disorders with radiculopathy, lumbar region (principal); M47.27 Other spondylosis with radiculopathy, lumbosacral region; M99.71 Connective tissue and disc stenosis of intervertebral foramina of cervical region
CPT/HCPCS: 72148